=== PATIENT | male | born 1950 | race Caucasian/White ===

== ENCOUNTER 2019-12-28 19:42 | Observation (INO) | payer MEDICARE, OTHER ==
[2019-12-28 20:22] LABS: #Basophils 0.1 thou/uL (0.0-0.2); #Lymphocytes 1.5 thou/uL (1.20-3.40); #Monocytes 0.8 thou/uL (0.11-0.59); #Neutrophils 3.5 thou/uL (1.40-6.50); %Basophils 1.1 % (0.0-1.0); %Eosinophils 0.3 % (0.0-10.0); %Monocytes 12.8 % (0.0-10.0); %Neutrophils 59.7 % (42.0-75.0); Hemoglobin 12.3 g/dL (14.0-18.0); Mean Corpuscular HGB CONC 33.7 g/dL (32.0-36.0); Mean Corpuscular Hemoglobin 37.8 pg (27.0-31.0); Mean Platelet Volume 6.6 fL (7.4-10.4); Platelet Count 285 thou/uL (130-400); RBC Distribution Width 14.5 % (11.5-14.5); Red Blood Cell (RBC) Count 3.25 mill/uL (4.70-6.10); White Blood Cell (WBC) Count 5.9 thou/uL (4.8-10.8)
[2019-12-28 20:40] LABS: ALT (SGPT) 30 U/L (8-55); AST (SGOT) 56 U/L (5-34); Albumin 3.2 g/dL (3.4-4.8); Alkaline Phosphatase 172 U/L (40-110); Anion Gap 19 mmol/L (10-20); BUN (Urea Nitrogen) 7 mg/dL (8.4-25.7); Bilirubin, Total 0.3 mg/dL (0.2-1.2); Calc. Creatinine Clearance 0 mL/min (70-130); Calcium 8.1 mg/dL (7.8-10.44); Carbon Dioxide 19 mmol/L (23-31); Chloride 108 mmol/L (98-107); Estimated GFR-MDRD Greater than 90; Globulin 3.8 g/dL (2.4-3.5); Glucose 92 mg/dL (80-115); Potassium 4.6 mmol/L (3.5-5.1); Sodium 141 mmol/L (136-145)
--- NOTE | 2019-12-28 20:46 | RAD ---
CHEST ONE VIEW: 12/28/19 HISTORY: Shortness of breath. Heart size appears borderline considering portable technique. Pacemaker is present. Chronic appearing lung changes are seen. No definitive infiltrative process. Ground glass opacities would be difficult to exclude. There is no history given of infection. IMPRESSION: Chronic appearing lung change. POS: Alex
--- NOTE | 2019-12-28 22:01 | CT ---
CT HEAD WITHOUT CONTRAST: 12/28/19 INDICATIONS: Mental status change. No comparison. Mild cortical volume loss. Ventricles have normal size and position. No evidence of intracranial hemo rrhage or mass. No evidence of infarct. The paranasal sinuses appear clear. IMPRESSION: No acute process. POS: AGW
[2019-12-28] MEDS ORDERED: Morphine 2 MG/ML VIAL ONE (22:20)
[2019-12-28 22:50] LABS: Bilirubin Negative (Negative); Blood, Urine Negative (Negative); Clarity Clear (Clear); Glucose, Urine (Dipstick) Normal (Negative); Ketone, Urine Negative (Negative); Leukocyte Negative Leu/uL (Negative); Nitrite Negative (Negative); Protein, Urine (Dipstick) Negative (Neg-Trace); Specific Gravity, Urine 1.011 (1.002-1.036); Urobilinogen Normal mg/dL (Less than 2)
[2019-12-28] MEDS ORDERED: Aspirin 325 MG TAB ONE (23:14)
[2019-12-28] MEDS ORDERED: Nitroglycerin 2% Ointment 1 INCH/1 GM Packet ONE (23:14)
[2019-12-28 23:40] LABS: Lactic Acid 2.3 mmol/L (0.5-2.2)
[2019-12-29] MEDS ORDERED: Morphine 2 MG/ML VIAL ONE (00:42)
[2019-12-29] MEDS ORDERED: Nitroglycerin 0.4 MG TAB (25 Tab Bottle) SL PRN (01:18)
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
[2019-12-29 02:47] VITALS: BMI 23.6
[2019-12-29] MEDS: HYDROcodone/Acetaminophen 5/325 mg Tablet PO PRN ×2 (03:09→15:13)
[2019-12-29 05:53] LABS: Troponin I 0.015 ng/mL (< 0.028)
[2019-12-29] MEDS: Morphine 2 MG/ML VIAL SLOW IVP PRN ×4 (06:42→22:04)
--- NOTE | 2019-12-29 07:51 | PDOC.FMACP ---
Advance Care Planning - Problem (1) Chest pain Status: Acute Code(s): R07.9 - CHEST PAIN, UNSPECIFIED (2) Chronic pain syndrome Status: Acute Code(s): G89.4 - CHRONIC PAIN SYNDROME (3) Neuropathy Status: Acute Code(s): G62.9 - POLYNEUROPATHY, UNSPECIFIED (4) Hypothyroidism Status: Acute Code(s): E03.9 - HYPOTHYROIDISM, UNSPECIFIED (5) COPD (chronic obstructive pulmonary disease) Status: Acute - Note Summary: Advanced Care Planning was discussed. The diagnosis, prognosis and goals of care were discussed. Appropriate forms and documentation to accomplish the goals of care were discussed. All questions were answered. The Palliative Care Team will be engaged to assist with completion of any outstanding forms that are needed. Patient wishes to remain full code. Surrogate decision maker: Kelly Stephens. Time Spent (mins): 17
[2019-12-29] MEDS: Aspirin 81 mg Enteric Coated Tablet PO SCH (09:14)
[2019-12-29] MEDS: Gabapentin 300 MG CAP PO SCH ×3 (09:14→22:01)
[2019-12-29] MEDS: Enoxaparin Sodium 40 MG/0.4 ML SYRINGE SC SCH (09:14)
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
[2019-12-29] MEDS ORDERED: Regadenoson 0.4 MG/5 ML SYRINGE ONE (12:37)
[2019-12-29 13:26] LABS: SARS-CoV-2 MS2 Positive; SARS-CoV-2 N Gene Negative; SARS-CoV-2 S Gene Negative; SARS-CoV-2 by NAA Not Detected (NotDetected); SARS-CoV-2 orf1ab Negative
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
[2019-12-29] MEDS: Metoprolol Tartrate 25 MG TAB PO SCH ×2 (15:06→22:01)
--- NOTE | 2019-12-29 16:09 | NM ---
MYOCARDIAL PERFUSION SCAN WITH SPECT IMAGING: History: Chest pain. Technique: Examination was performed using 30.5 mCi 99M Technetium Sestamibi on the stress and 10.5 m Ci on the resting images. FINDINGS: This shows a small fixed defect in the inferior wall near the apex. No ischemic change. Wall motion: There is symmetric contractility to the ventricle. Left ventricular ejection fraction: Calculated left ventricular ejection fraction is 58%. IMPRESSION: No evidence for ischemia. Left ventricular ejection fraction calculated at 58%. POS: OFF
[2019-12-29] MEDS ORDERED: Calcium Carbonate 500 MG ChewTAB PO PRN (20:04)
[2019-12-29] MEDS: FLU VACC QS2020-21(65YR UP)/PF 240 MCG/0.7 ML SYRINGE IM ONE ×2 (22:05→22:42)
--- NOTE | 2019-12-29 22:27 | PDOC.EVN ---
Event Note - Event Note Event Note: Nursing went into room and patient was diaphoretic and complaining of chest pain. Stat EKG ordered along with troponin. Nitro administered which provided some relief and then morphine helped with the rest of the chest pain and the leg pain he was experiencing. Nursing to obtain accuchek also at this time.
[2019-12-29 23:35] LABS: Troponin I 0.028 ng/mL (< 0.028)
[2019-12-30 02:00] LABS: Troponin I 0.018 ng/mL (< 0.028)
[2019-12-30] MEDS: HYDROcodone/Acetaminophen 5/325 mg Tablet PO PRN ×2 (03:00→08:53)
[2019-12-30] MEDS: Morphine 2 MG/ML VIAL SLOW IVP PRN ×2 (06:12→10:37)
[2019-12-30] MEDS: Gabapentin 300 MG CAP PO SCH (08:46)
[2019-12-30] MEDS: Metoprolol Tartrate 25 MG TAB PO SCH (08:46)
[2019-12-30] MEDS ORDERED: Timolol 0.5% Ophth Soln 5 ml Bottle EA EYE SCH (09:00)
[2019-12-30] MEDS ORDERED: Carbidopa/Levodopa 10-100 mg Tablet PO SCH (09:00)
[2019-12-30] MEDS ORDERED: carBAMazepine 200 MG TAB PO SCH (09:00)
[2019-12-30 11:12] VITALS: BP 151/103; TEMP 97.9
[2019-12-30] MEDS: Aspirin 81 mg Enteric Coated Tablet PO SCH (12:11)
[2019-12-30] MEDS: Enoxaparin Sodium 40 MG/0.4 ML SYRINGE SC SCH (12:11)
--- NOTE | 2019-12-30 12:19 | PRG ---
DATE OF SERVICE: 12/30/2019 SUBJECTIVE: Mr. Delcid is doing well. No current complaints. He appeared to have chest pain overnight, although during my visit, he states it was more consistent with leg pain and buttock pain from his decubitus ulcer. No chest pain or pressure noted per his account. He recently underwent noninvasive stress test that was negative for ischemia. OBJECTIVE: VITAL SIGNS: Blood pressure 146/98, pulse 108, respirations 20. LUNGS: Clear to auscultation. HEART: Regular rate and rhythm. ABDOMEN: Soft, nontender, nondistended. EXTREMITIES: No edema. IMPRESSION: Atypical chest pain. RECOMMENDATIONS: Mr. Delcid is doing well. No current complaints. His stress study was negative for ischemia. From my standpoint, it will be okay for discharge. His symptoms were more consistent with musculoskeletal versus pleuritic pain. I did recommend he follow up with Dr. Kyle Knapp, his primary area forester within a week. Job ID: [id number]
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
--- NOTE | 2019-12-30 18:01 | EKG ---
Test Reason : Blood Pressure : / mmHG Vent. Rate : 093 BPM Atrial Rate : 093 BPM P-R Int : 160 ms QRS Dur : 126 ms QT Int : 440 ms P-R-T Axes : 112 088 069 degrees QTc Int : 547 ms Normal sinus rhythm very poor quality EKG Right bundle branch block Abnormal ECG When compared with ECG of 29-DEC-2019 00:37, (Unconfirmed) Right bundle branch block is now Present Confirmed by DR. Geoff RYAN ([id number]) on 12/30/2019 6:00:58 PM Referred By: CB Confirmed By:DR. Geoff RYAN
--- NOTE | 2019-12-31 14:26 | EKG ---
Test Reason : Blood Pressure : / mmHG Vent. Rate : 098 BPM Atrial Rate : 098 BPM P-R Int : 170 ms QRS Dur : 120 ms QT Int : 402 ms P-R-T Axes : 054 088 080 degrees QTc Int : 513 ms Normal sinus rhythm Right bundle branch block Septal infarct , age undetermined Abnormal ECG Confirmed by TARA PRAKASH ([id number]) on 12/31/2019 2:26:02 PM Referred By: CB Confirmed By:TARA PRAKASH
== END 2019-12-30 12:47 | disposition home health service (06) ==
LOC: ERS 19:42 → 2SE 12-29 01:15
PROVIDERS: ADMIT Internal Medicine; ATTEND Internal Medicine
DX: R07.89 Other chest pain (principal); J44.9 Chronic obstructive pulmonary disease, unspecified; G89.4 Chronic pain syndrome; L89.303 Pressure ulcer of unspecified buttock, stage 3; E03.9 Hypothyroidism, unspecified; G62.9 Polyneuropathy, unspecified; I45.10 Unspecified right bundle-branch block; F32.9 Major depressive disorder, single episode, unspecified; G20 Parkinson's disease; I49.5 Sick sinus syndrome; G82.20 Paraplegia, unspecified; Z79.899 Other long term (current) drug therapy; Z95.0 Presence of cardiac pacemaker
CPT/HCPCS: 70450; 71045; 78452; 80053; 81003; 82550; 82962; 83605; 84484 ×4; 85025; 87040; 90662; 93005 ×2; 93017; 93306; 94760; 96361; 96372; 96374; 96376 ×3; 97139 ×2; 99285; A9500; G0008; G0378 ×3; J2270 ×3; U0003; 36415; 36416; 87635; 90471; 93010; J1650; J2785

== ENCOUNTER 2020-03-09 16:55 | Inpatient (IN) | payer MEDICARE, MEDICAID ==
[2020-03-09 17:42] LABS: Hemoglobin 11.9 g/dL (14.0-18.0); Mean Corpuscular HGB CONC 33.1 g/dL (32.0-36.0); Mean Corpuscular Hemoglobin 35.6 pg (27.0-31.0); Mean Platelet Volume 8.6 fL (7.4-10.4); Platelet Count 89 thou/uL (130-400); RBC Distribution Width 13.4 % (11.5-14.5); Red Blood Cell (RBC) Count 3.35 mill/uL (4.70-6.10)
--- NOTE | 2020-03-09 17:46 | CT ---
CT Brain WO Con: 03/09/2020 5:37 PM CLINICAL HISTORY: History of fall with head injury. IMAGING TECHNIQUE: Multiple CT images were obtained of the brain without IV contrast. COMPARISON: December 28, 2019 CT the brain FINDINGS: BRAIN: Evidence of acute infarct: None. Evidence of chronic ischemic change:Stable mild chronic small vessel white matter ischemic change Evidence of intracranial hemorrhage: None. Evidence of brain volume loss:Stable generalized cerebral and cerebellar atrophy Evidence of midline shift: Third ventricle and septum pellucidum are midline. Ventricles: Normal. No hydrocephalus. SKULL: Intact. VISUALIZED PARANASAL SINUSES: There is mild mucosal thickening of the ethmoid air cells which are st able. MASTOID AIR CELLS: Clear. EXTRACRANIAL SOFT TISSUES: Normal. IMPRESSION: No acute intracranial abnormality.
--- NOTE | 2020-03-09 17:47 | CT ---
CT Cervical Spine WO Con Indication: Fall with neck pain COMPARISON: None. FINDINGS: Spinal alignment: No acute malalignment. Craniocervical junction: Within normal limits. Fracture: None. Vertebral body heights: Maintained. Prevertebral soft tissues:Normal appearing. Cervical spine degenerative change: There is [id number] multilevel cervical spondylosis Lung apices: Clear. IMPRESSION: No acute osseous abnormality. [id number] multilevel cervical spondylosis.
[2020-03-09 17:59] LABS: Band 5 % (5-11); Lymphocytes 8 % (21-51); MDiff Complete? YES; Macrocytosis SLIGHT = 6-15 cells (100X) (0-5/hpf); Monocytes 9 % (0-10); Neutrophil 77 % (42-75); Platelet Morphology Comment Appears Decreased; Reactive Lymphocytes 1 % (0-10)
--- NOTE | 2020-03-09 18:06 | RAD ---
Exam: Chest one view HISTORY:Fall. Left rib pain. Comparison: 12/28/2019 FINDINGS: Cardiac silhouette:Normal cardiac silhouette. Stable dual lead left-sided transvenous pacemaker Aorta: Unremarkable Pulmonary vessels: Normal Costophrenic angles: Clear LUNGS: Chronic lung parenchymal changes. No masses or consolidation. Pneumothorax: None Osseous abnormalities: Diffuse bone demineralization. Multiple old left rib fractures. Acute left rib fracture is not appreciated. IMPRESSION: No acute cardiopulmonary process.
[2020-03-09] MEDS ORDERED: Ketorolac Tromethamine 30 MG/ML VIAL ONE (19:12)
[2020-03-09 19:48] LABS: Bilirubin Negative (Negative); Blood, Urine Negative (Negative); Clarity Clear (Clear); Glucose, Urine (Dipstick) Normal (Negative); Ketone, Urine Negative (Negative); Leukocyte Negative Leu/uL (Negative); Nitrite Negative (Negative); Protein, Urine (Dipstick) Negative (Neg-Trace); Specific Gravity, Urine 1.013 (1.002-1.036); Urobilinogen Normal mg/dL (Less than 2)
[2020-03-09] MEDS ORDERED: Cefepime 2 GM VIAL ONE (19:52)
[2020-03-09 20:19] LABS: Albumin 1.9 g/dL (3.4-4.8)
[2020-03-09 20:20] LABS: Calcium 7.3 mg/dL (7.8-10.44); Chloride 96 mmol/L (98-107); Sodium 134 mmol/L (136-145)
[2020-03-09 20:21] LABS: Glucose 131 mg/dL (80-115)
[2020-03-09 20:22] LABS: Globulin 3.7 g/dL (2.4-3.5); Protein, Total 5.6 g/dL (5.8-8.1)
[2020-03-09 20:23] LABS: Anion Gap 16 mmol/L (10-20); Bilirubin, Total 0.7 mg/dL (0.2-1.2); Carbon Dioxide 25 mmol/L (23-31)
[2020-03-09 20:24] LABS: Alkaline Phosphatase 435 U/L (40-110)
[2020-03-09 20:25] LABS: BUN (Urea Nitrogen) 9 mg/dL (8.4-25.7); Calc. Creatinine Clearance 0 mL/min (70-130)
[2020-03-09 20:26] LABS: AST (SGOT) 50 U/L (5-34)
[2020-03-09 20:27] LABS: ALT (SGPT) 64 U/L (8-55); CK (CPK) 43 U/L (30-200)
[2020-03-09 20:30] LABS: Potassium 2.9 mmol/L (3.5-5.1)
[2020-03-09] MEDS ORDERED: Potassium Chloride 20 MEQ TAB ONE (20:41)
[2020-03-09] MEDS ORDERED: Potassium Chloride 40 MEQ in Sodium Chloride 0.9% 250 ML 250 ML IVPB SCH (21:00)
[2020-03-09] MEDS ORDERED: hydrALAZINE 20 MG/ML VIAL SLOW IVP PRN (22:05)
[2020-03-09] MEDS ORDERED: Labetalol HCl 100 MG/20 ML VIAL SLOW IVP PRN (22:05)
[2020-03-09] MEDS ORDERED: cloNIDine 0.1 MG TAB PO PRN (22:05)
[2020-03-09] MEDS ORDERED: Guaifenesin DM 100-10/5 ML UDCUP PO PRN (22:05)
[2020-03-09] MEDS ORDERED: Promethazine HCl 12.5 MG in Sodium Chloride 0.9% 50 ML IVPB PRN (22:05)
[2020-03-09] MEDS ORDERED: Ondansetron PF 4 MG/2 ML Vial IVP PRN (22:05)
[2020-03-09] MEDS ORDERED: Vancomycin 1 GM in Premix Bag 1 BAG IVPB SCH (22:05)
[2020-03-09] MEDS ORDERED: Vancomycin 1 GM/200 ML BAG ONE (22:14)
[2020-03-09] MEDS ORDERED: Electrolyte Replacement Protocol 1 EACH FS PRN (22:15)
[2020-03-09] MEDS ORDERED: Potassium Chloride 40 MEQ in Premix Bag 1 BAG IVPB SCH (22:15)
[2020-03-09] MEDS ORDERED: Methocarbamol 500 MG TAB PO SCH (23:00)
[2020-03-09] MEDS ORDERED: Gabapentin 300 MG CAP PO SCH (23:00)
[2020-03-09] MEDS ORDERED: Piperacillin/Tazobactam 3.375 GM in Sodium Chloride 0.9% 100 ML IVPB SCH (23:59)
[2020-03-10] MEDS ORDERED: Ipratropium Oral Inhaler INH PRN (00:07)
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
[2020-03-10] MEDS: Sodium Chloride 0.9% 1,000 ML IV SCH ×3 (00:36→15:23)
[2020-03-10] MEDS: Morphine 2 MG/ML VIAL SLOW IVP PRN ×2 (00:49→21:58)
[2020-03-10] MEDS ORDERED: Morphine 4 MG/ML VIAL ONE (00:51)
[2020-03-10] MEDS ORDERED: Piperacillin/Tazobactam 3.375 GM VIAL ONE ×2 (02:35→09:23)
[2020-03-10] MEDS: Piperacillin/Tazobactam 3.375 GM in Sodium Chloride 0.9% 100 ML IVPB SCH ×4 (02:45→20:19)
[2020-03-10] MEDS: Levothyroxine Sodium 100 MCG TAB PO SCH (06:09)
[2020-03-10 06:55] LABS: #Lymphocytes 0.7 thou/uL (1.20-3.40); #Neutrophils 9.1 thou/uL (1.40-6.50); %Basophils 0.1 % (0.0-1.0); %Eosinophils 0.3 % (0.0-10.0); %Lymphocytes 6.5 % (21.0-51.0); %Neutrophils 84.2 % (42.0-75.0); Hemoglobin 11.3 g/dL (14.0-18.0); Mean Corpuscular HGB CONC 32.2 g/dL (32.0-36.0); Mean Corpuscular Hemoglobin 35.4 pg (27.0-31.0); Mean Platelet Volume 8.6 fL (7.4-10.4); Platelet Count 75 thou/uL (130-400); RBC Distribution Width 13.4 % (11.5-14.5); Red Blood Cell (RBC) Count 3.18 mill/uL (4.70-6.10); White Blood Cell (WBC) Count 10.9 thou/uL (4.8-10.8)
[2020-03-10 07:17] LABS: Macrocytosis SLIGHT = 6-15 cells (100X) (0-5/hpf); Platelet Morphology Comment Appears Decreased; Polychromasia SLIGHT = 2-3 cells (100X) (0-2/hpf)
[2020-03-10 07:20] LABS: Anion Gap 13 mmol/L (10-20); BUN (Urea Nitrogen) 6 mg/dL (8.4-25.7); Calc. Creatinine Clearance 0 mL/min (70-130); Calcium 6.9 mg/dL (7.8-10.44); Carbon Dioxide 21 mmol/L (23-31); Chloride 106 mmol/L (98-107); Glucose 90 mg/dL (80-115); Magnesium 1.4 mg/dL (1.6-2.6); Potassium 4.4 mmol/L (3.5-5.1); Sodium 136 mmol/L (136-145)
[2020-03-10] MEDS ORDERED: Magnesium Sulfate 4 GM in Sodium Chloride 0.9% 250 ML 250 ML IVPB SCH (07:30)
[2020-03-10] MEDS ORDERED: Potassium Chloride 20 MEQ TAB ONE ×2 (07:38→11:29)
[2020-03-10] MEDS: Potassium Chloride 20 MEQ TAB PO SCH ×2 (07:40→11:28)
[2020-03-10] MEDS: Mometasone 200 MCG/Formoterol 5 MCG 120 PUFF INHALER INH SCH ×2 (08:20→18:38)
[2020-03-10] MEDS: carBAMazepine 200 MG TAB PO SCH ×2 (09:08→20:23)
[2020-03-10] MEDS: DULoxetine 60 MG CAP PO SCH ×2 (09:09→20:20)
[2020-03-10] MEDS: Docusate 100 MG CAP PO SCH ×2 (09:09→20:24)
[2020-03-10] MEDS ORDERED: Rocuronium Bromide 10 MG/ML (10ML VIAL) ONE (09:13)
[2020-03-10] MEDS ORDERED: PROPOFOL 200 MG/20 ML VIAL ONE (09:13)
[2020-03-10] MEDS: Ferrous Sulfate 325 MG TAB PO SCH (09:14)
[2020-03-10] MEDS: Famotidine 20 MG TAB PO SCH ×2 (09:15→20:22)
[2020-03-10] MEDS: Hydroxychloroquine Sulfate 200 MG TAB PO SCH ×2 (09:17→21:53)
[2020-03-10] MEDS ORDERED: Famotidine 20 MG TAB ONE (09:23)
[2020-03-10] MEDS: Carbidopa/Levodopa 10-100 mg Tablet PO SCH ×3 (10:25→20:20)
[2020-03-10] MEDS: Heparin 5,000 UNITS/ML VIAL SC SCH ×2 (10:26→20:29)
[2020-03-10] MEDS: Polyethylene Glycol 3350 17 GM Packet PO SCH (10:26)
[2020-03-10] MEDS ORDERED: Vancomycin 1 GM/200 ML BAG ONE (10:51)
[2020-03-10] MEDS: Vancomycin 1 GM in Premix Bag 1 BAG IVPB SCH ×2 (11:03→21:53)
[2020-03-10 12:29] LABS: SARS-CoV-2 MS2 Positive; SARS-CoV-2 N Gene Negative; SARS-CoV-2 S Gene Negative; SARS-CoV-2 by NAA Not Detected (NotDetected); SARS-CoV-2 orf1ab Negative
[2020-03-10] MEDS ORDERED: HYDROcodone/Acetaminophen 5/325 mg Tablet ONE (12:32)
[2020-03-10] MEDS: HYDROcodone/Acetaminophen 5/325 mg Tablet PO PRN ×2 (12:32→20:26)
[2020-03-10] MEDS ORDERED: Gabapentin 300 MG CAP PO SCH (21:00)
[2020-03-10] MEDS: Methocarbamol 500 MG TAB PO SCH (21:48)
[2020-03-11] MEDS: Piperacillin/Tazobactam 3.375 GM in Sodium Chloride 0.9% 100 ML IVPB SCH ×4 (03:16→20:20)
[2020-03-11] MEDS: Sodium Chloride 0.9% 1,000 ML IV SCH ×3 (03:16→21:13)
[2020-03-11] MEDS: HYDROcodone/Acetaminophen 5/325 mg Tablet PO PRN ×2 (03:22→08:59)
[2020-03-11 04:51] LABS: #Lymphocytes 0.7 thou/uL (1.20-3.40); #Monocytes 1.1 thou/uL (0.11-0.59); #Neutrophils 8.3 thou/uL (1.40-6.50); %Basophils 0.5 % (0.0-1.0); %Eosinophils 0.3 % (0.0-10.0); %Lymphocytes 6.7 % (21.0-51.0); %Monocytes 10.4 % (0.0-10.0); %Neutrophils 82.2 % (42.0-75.0); Hemoglobin 11.2 g/dL (14.0-18.0); Mean Corpuscular HGB CONC 32.1 g/dL (32.0-36.0); Mean Corpuscular Hemoglobin 35.5 pg (27.0-31.0); Mean Platelet Volume 9.8 fL (7.4-10.4); Platelet Count 65 thou/uL (130-400); RBC Distribution Width 13.3 % (11.5-14.5); Red Blood Cell (RBC) Count 3.16 mill/uL (4.70-6.10); White Blood Cell (WBC) Count 10.1 thou/uL (4.8-10.8)
[2020-03-11 05:07] LABS: Anion Gap 11 mmol/L (10-20); BUN (Urea Nitrogen) Less than 4 mg/dL (8.4-25.7); Calc. Creatinine Clearance 163 mL/min (70-130); Calcium 6.9 mg/dL (7.8-10.44); Carbon Dioxide 24 mmol/L (23-31); Chloride 100 mmol/L (98-107); Glucose 108 mg/dL (80-115); Magnesium 1.7 mg/dL (1.6-2.6); Potassium 3.9 mmol/L (3.5-5.1); Sodium 131 mmol/L (136-145)
[2020-03-11] MEDS: Levothyroxine Sodium 100 MCG TAB PO SCH (05:24)
[2020-03-11] MEDS ORDERED: Magnesium 2 GM/50 ML 2 GM in Premix Bag 1 BAG IVPB SCH (06:30)
[2020-03-11] MEDS: Mometasone 200 MCG/Formoterol 5 MCG 120 PUFF INHALER INH SCH ×2 (07:07→18:50)
[2020-03-11] MEDS: Carbidopa/Levodopa 10-100 mg Tablet PO SCH ×3 (08:50→20:15)
[2020-03-11] MEDS: DULoxetine 60 MG CAP PO SCH ×2 (08:51→20:16)
[2020-03-11] MEDS: Docusate 100 MG CAP PO SCH ×2 (08:51→20:16)
[2020-03-11] MEDS: Famotidine 20 MG TAB PO SCH (08:51)
[2020-03-11] MEDS: Ferrous Sulfate 325 MG TAB PO SCH (08:51)
[2020-03-11] MEDS: carBAMazepine 200 MG TAB PO SCH ×2 (08:51→20:16)
[2020-03-11] MEDS: Polyethylene Glycol 3350 17 GM Packet PO SCH (08:52)
[2020-03-11] MEDS: Heparin 5,000 UNITS/ML VIAL SC SCH ×2 (09:21→21:13)
[2020-03-11] MEDS ORDERED: EPINEPHrine 1 MG/10 ML Abboject SYRINGE ONE (09:21)
--- NOTE | 2020-03-11 09:35 | PDOC.HOSPP ---
- Subjective Encounter Date: 03/10/20 Encounter Time: 11:50 Subjective: PT SEEN IN ER holding area. looks comfortable, wants something to eat and drink. - Objective Vital Signs & Weight: Vital Signs (12 hours) Temp Pulse Resp BP Pulse Ox 03/11/20 08:37 97.6 F 105 H 21 H 133/78 94 L 03/11/20 03:23 97.5 F L 108 H 18 148/84 H 92 L Weight Weight 148 lb I&O: 03/10/20 03/11/20 03/12/20 06:59 06:59 06:59 Intake Total 2760 Output Total 525 Balance 2235 Result Diagrams: 03/11/20 04:20 03/11/20 04:20 Hospitalist ROS - Medication Medications: Active Medications Generic Name Dose Route Start Last Admin Trade Name Freq PRN Reason Stop Dose Admin Hydrocodone Bitart/Acetaminophen 1 tab 03/09/20 22:05 03/11/20 08:59 Hydrocodone/Acetaminophen 5/325 Mg Tablet PO 1 tab Q4H PRN Administration Moderate Pain (4-6) Carbamazepine 200 mg 03/10/20 09:00 03/11/20 08:51 Carbamazepine 200 Mg Tab PO 200 mg BID NICKOLAS Administration Carbidopa/Levodopa 1 tab 03/10/20 09:00 03/11/20 08:50 Carbidopa/Levodopa 10-100 Mg Tablet PO 1 tab TID NICKOLAS Administration Docusate Sodium 100 mg 03/10/20 09:00 03/11/20 08:51 Docusate 100 Mg Cap PO Not Given BID NICKOLAS Duloxetine HCl 60 mg 03/10/20 09:00 03/11/20 08:51 Duloxetine 60 Mg Cap PO 60 mg BID NICKOLAS Administration Famotidine 20 mg 03/10/20 09:00 03/11/20 08:51 Famotidine 20 Mg Tab PO 20 mg BID NICKOLAS Administration Ferrous Sulfate 325 mg 03/10/20 09:00 03/11/20 08:51 Ferrous Sulfate 325 Mg Tab PO 325 mg DAILY NICKOLAS Administration Gabapentin 900 mg 03/10/20 21:00 03/10/20 20:22 Gabapentin 300 Mg Cap PO 900 mg HS NICKOLAS Administration Heparin Sodium (Porcine) 5,000 units 03/10/20 09:00 03/11/20 09:21 Heparin 5,000 Units/Ml Vial SC Not Given BID NICKOLAS Hydroxychloroquine Sulfate 200 mg 03/10/20 09:00 03/10/20 21:53 Hydroxychloroquine Sulfate 200 Mg Tab PO 200 mg BID NICKOLAS Administration Sodium Chloride 1,000 mls @ 100 mls/hr 03/09/20 22:15 03/11/20 03:16 Normal Saline 0.9% IV 1,000 mls .Q10H NICKOLAS Administration Piperacillin Sod/Tazobactam 100 mls @ 200 mls/hr 03/10/20 03:00 03/11/20 08:53 Sod 3.375 gm/ Sodium Chloride IVPB 100 mls 0300,0900,1500,2100 NICKOLAS Administration Vancomycin HCl 1 gm/ Device 200 mls @ 200 mls/hr 03/10/20 10:00 03/10/20 21:53 IVPB 03/17/20 10:01 200 mls 1000,2200 NICKOLAS Administration Magnesium Sulfate 2 gm/ Device 50 mls @ 50 mls/hr 03/11/20 06:30 03/11/20 06:30 IVPB 03/11/20 10:00 50 mls NOW NICKOLAS Administration Levothyroxine Sodium 100 mcg 03/10/20 06:00 03/11/20 05:24 Levothyroxine Sodium 100 Mcg Tab PO 100 mcg 0600 NICKOLAS Administration Methocarbamol 750 mg 03/10/20 21:00 03/10/20 21:48 Methocarbamol 500 Mg Tab PO 750 mg HS NICKOLAS Administration Mometasone Furoate/Formoterol Fumar 2 puff 03/10/20 06:30 03/11/20 07:07 Mometasone 200 Mcg/Formoterol 5 Mcg 120 Puff Inhaler INH 2 puff BID-RT NICKOLAS Administration Morphine Sulfate 2 mg 03/09/20 22:05 03/10/20 21:58 Morphine 2 Mg/Ml Vial SLOW IVP 2 mg Q4H PRN Administration severe pain 4-10 Pantoprazole Sodium 40 mg 03/10/20 09:00 03/11/20 08:51 Pantoprazole 40 Mg Tab PO 40 mg DAILY NICKOLAS Administration Polyethylene Glycol 17 gm 03/10/20 09:00 03/11/20 08:52 Polyethylene Glycol 3350 17 Gm Packet PO Not Given DAILY NICKOLAS - Exam General Appearance: NAD, awake alert, ill appearing Eye: PERRL ENT: normocephalic atraumatic Neck: supple Heart: RRR, normal peripheral pulses Respiratory: CTAB, normal chest expansion Gastrointestinal: soft, normal bowel sounds Neurological: no focal deficits Musculoskeletal: generalized weakness Psychiatric: A&O x 3 Hosp A/P - Plan 83 year old male with PMH doyle over 70% of body with resulting muscle weakness, COPD, fibromyalgia, parkinsons, seizure disorder, vitamin b deficiency, hypothyroidismwho presents to ED after fall at home. # fall at home and no LOC # purulent cellulitis secondary to infected sacral wound # sepsis secondary to skin/soft tissue infection - UA benign; CXR clear, CT spine w/ multilevel cervical spondylosis, CT head with on acute IC abnormalities. - empiric vancomycin/zosyn, IVF, montior culture results - wound care nursing consults # hypokalemia - replaced. Pt/OT CAse mgmt pt lives alone, may need to go to SNF Full code pl note this note missed yesterday.
[2020-03-11 10:39] LABS: Vancomycin, Trough 7.7 ug/mL
[2020-03-11] MEDS: Vancomycin 1 GM in Premix Bag 1 BAG IVPB SCH (11:51)
[2020-03-11] MEDS: Hydroxychloroquine Sulfate 200 MG TAB PO SCH ×2 (12:31→20:17)
[2020-03-11] MEDS: NS 0.9% w/ 20 MEQ KCL 1,000 ML/1,000 ML BAG IV SCH (12:32)
[2020-03-11] MEDS: Vancomycin 1.5 GRAM/300 ML BAG 1.5 GM in Premix Bag 1 BAG IVPB SCH (12:33)
[2020-03-11] MEDS ORDERED: diphenhydrAMINE 50 MG CAP PO PRN (15:40)
[2020-03-11] MEDS ORDERED: Clotrimazole 1 % Cream 30 GM TUBE TOP PRN (15:40)
[2020-03-11] MEDS ORDERED: Simethicone Chewable 80 MG TAB PO PRN (15:40)
[2020-03-11] MEDS ORDERED: Loratadine 10 MG TAB PO PRN (15:40)
--- NOTE | 2020-03-11 15:44 | PDOC.HOSPP ---
- Subjective Encounter Date: 03/11/20 Encounter Time: 15:30 Subjective: Patient sitting in the chair bed. He has a significant wound at the back but is still able to sit but he appears quite uncomfortable as well. He is asking for gabapentin in the night which he used to take at home. Home medication started. I reviewed the wound care pictures as well. It appears he has skin abrasions and stage I/II pressure ulcers sacral area - Objective Vital Signs & Weight: Vital Signs (12 hours) Temp Pulse Resp BP BP Pulse Ox 03/11/20 12:27 97.5 F L 100 24 H 167/91 H 94 L 03/11/20 08:37 97.6 F 105 H 21 H 133/78 94 L Weight Admit Weight 146 lb 14.4 oz Weight 148 lb I&O: 03/10/20 03/11/20 03/12/20 06:59 06:59 06:59 Intake Total 2760 Output Total 525 Balance 2235 Result Diagrams: 03/11/20 04:20 03/11/20 04:20 Hospitalist ROS - Medication Medications: Active Medications Generic Name Dose Route Start Last Admin Trade Name Freq PRN Reason Stop Dose Admin Hydrocodone Bitart/Acetaminophen 1 tab 03/09/20 22:05 03/11/20 08:59 Hydrocodone/Acetaminophen 5/325 Mg Tablet PO 1 tab Q4H PRN Administration Moderate Pain (4-6) Carbamazepine 200 mg 03/10/20 09:00 03/11/20 08:51 Carbamazepine 200 Mg Tab PO 200 mg BID NICKOLAS Administration Carbidopa/Levodopa 1 tab 03/10/20 09:00 03/11/20 08:50 Carbidopa/Levodopa 10-100 Mg Tablet PO 1 tab TID NICKOLAS Administration Docusate Sodium 100 mg 03/10/20 09:00 03/11/20 08:51 Docusate 100 Mg Cap PO Not Given BID NICKOLAS Duloxetine HCl 60 mg 03/10/20 09:00 03/11/20 08:51 Duloxetine 60 Mg Cap PO 60 mg BID NICKOLAS Administration Ferrous Sulfate 325 mg 03/10/20 09:00 03/11/20 08:51 Ferrous Sulfate 325 Mg Tab PO 325 mg DAILY NICKOLAS Administration Heparin Sodium (Porcine) 5,000 units 03/10/20 09:00 03/11/20 09:21 Heparin 5,000 Units/Ml Vial SC Not Given BID NICKOLAS Hydroxychloroquine Sulfate 200 mg 03/10/20 09:00 03/11/20 12:31 Hydroxychloroquine Sulfate 200 Mg Tab PO 200 mg BID NICKOLAS Administration Piperacillin Sod/Tazobactam 100 mls @ 200 mls/hr 03/10/20 03:00 03/11/20 08:53 Sod 3.375 gm/ Sodium Chloride IVPB 100 mls 0300,0900,1500,2100 NICKOLAS Administration Potassium Chloride/Sodium Chloride 1,000 ml in 1,000 mls @ 50 mls/hr 03/11/20 10:45 03/11/20 12:32 Ns 0.9% W/ 20 Meq Kcl IV 03/13/20 02:44 1,000 mls .Q20H NICKOLAS Administration Sodium Chloride 1,000 mls @ 100 mls/hr 03/11/20 10:45 03/11/20 15:26 Normal Saline 0.9% IV Not Given .Q10H NICKOLAS Vancomycin HCl 1.5 gm/ Device 300 mls @ 200 mls/hr 03/11/20 11:00 03/11/20 12:33 IVPB 03/17/20 14:00 300 mls 1100,2300 NICKOLAS Administration Levothyroxine Sodium 100 mcg 03/10/20 06:00 03/11/20 05:24 Levothyroxine Sodium 100 Mcg Tab PO 100 mcg 0600 NICKOLAS Administration Methocarbamol 750 mg 03/10/20 21:00 03/10/20 21:48 Methocarbamol 500 Mg Tab PO 750 mg HS NICKOLAS Administration Mometasone Furoate/Formoterol Fumar 2 puff 03/10/20 06:30 03/11/20 07:07 Mometasone 200 Mcg/Formoterol 5 Mcg 120 Puff Inhaler INH 2 puff BID-RT NICKOLAS Administration Morphine Sulfate 2 mg 03/09/20 22:05 03/10/20 21:58 Morphine 2 Mg/Ml Vial SLOW IVP 2 mg Q4H PRN Administration severe pain 4-10 Pantoprazole Sodium 40 mg 03/10/20 09:00 03/11/20 08:51 Pantoprazole 40 Mg Tab PO 40 mg DAILY NICKOLAS Administration Polyethylene Glycol 17 gm 03/10/20 09:00 03/11/20 08:52 Polyethylene Glycol 3350 17 Gm Packet PO Not Given DAILY NICKOLAS - Exam General Appearance: awake alert, ill appearing Eye: PERRL ENT: normocephalic atraumatic Neck: supple Heart: RRR Respiratory: CTAB, normal chest expansion Gastrointestinal: soft, normal bowel sounds Skin - other findings: Stage I/II pressure ulcers - sacral area-REVEWED PICTURE S FROM WOUND CARE Neurological: cranial nerve grossly intact, no focal deficits Psychiatric: normal affect, normal behavior, A&O x 3 Hosp A/P - Plan 83 year old male with PMH doyle over 70% of body with resulting muscle weakness, COPD, fibromyalgia, parkinsons, seizure disorder, vitamin b deficiency, hypothyroidismwho presents to ED after fall at home. # fall at home and no LOC # purulent cellulitis secondary to infected sacral wound # sepsis secondary to skin/soft tissue infection - UA benign; CXR clear, CT spine w/ multilevel cervical spondylosis, CT head with on acute IC abnormalities. - empiric vancomycin/zosyn, IVF, montior culture results - wound care nursing consults # hypokalemia - replaced. Pt/OT CAse mgmt pt lives alone, may need to go to SNF Full code pl note this note missed yesterday. He is little anxious to get home. He states that he has a provider as well as nursing comes 3 times a week to his home. If wound care ulcer can be addressed at home then will discharge him tomorrow.
[2020-03-11] MEDS ORDERED: Cyanocobalamin 1000 MCG/ML VIAL IM SCH (15:45)
[2020-03-11] MEDS: Gabapentin 300 MG CAP PO SCH ×2 (16:00→20:20)
[2020-03-11] MEDS: Morphine 2 MG/ML VIAL SLOW IVP PRN (16:01)
[2020-03-11] MEDS ORDERED: Triamcinolone 0.1% Cream 15 GM TUBE TOP PRN (17:46)
[2020-03-11] MEDS ORDERED: Sodium Chloride 0.65% Nasal 44 ML BOT EA NARE PRN (17:48)
[2020-03-11] MEDS ORDERED: Albuterol Sulfate 2.5 mg/0.5 ml Neb NEB PRN (17:53)
[2020-03-11] MEDS: Latanoprost 0.005% Ophth Soln 2.5 ml Bottle EA EYE SCH (20:12)
[2020-03-11] MEDS: Timolol 0.5% Ophth Soln 5 ml Bottle EA EYE SCH (20:15)
[2020-03-11] MEDS: Gabapentin 400 MG CAP PO SCH (20:15)
[2020-03-11] MEDS: Terazosin HCl 5 MG CAP PO SCH (20:17)
[2020-03-11] MEDS: Metoprolol Tartrate 25 MG TAB PO SCH (20:17)
[2020-03-11] MEDS: Methocarbamol 500 MG TAB PO SCH (20:18)
--- NOTE | 2020-03-11 22:41 | PDOC.EVN ---
Event Note - Event Note Event Note: code blue was announced, patient was found unconscious slumped atthe edge of the bed,then when he was repositioned he was noted not breathing. CPR was started, and initially had PEA,then we he had a pulse,he was intubated by the ER physician and he is in the process of being transferred to ICU. I will order stat labs and CXR. I called the hospital superintendent andinformed him about the patient.
[2020-03-11 23:23] LABS: Actual Bicarbonate (HCO3a) 24.5 mEq/L (22-28); Base Excess (BEa) -0.8 mEq/L (-2.0 to +3.0); CO2 Tension 42.7 mmHg (35.0-45.0); Calcium, Ionized (arterial) 1.07 mmol/L (1.12-1.30); Carboxyhemoglobin (COHb) 1.5 gm% (0.0-3.0); Hemoglobin (Hb) 11.2 g/dL (14.0-18.0); O2 Tension (PaO2), arterial 143.5 mmHg (> 80.0); pH, Arterial 7.38 (7.35-7.45)
[2020-03-11 23:24] LABS: ALV-art Gradient 516.125 mmHg (0-20); Puncture Site LBA
--- NOTE | 2020-03-11 23:27 | RAD ---
Portable frontal chest radiograph: 03/11/2020 COMPARISON: 03/09/2019 HISTORY: Evaluate chest following intubation FINDINGS: There is a new endotracheal tube and nasogastric tube in proper position. There is extensiv e new interstitial opacity in the perihilar regions and both upper lobes with superimposed diffuse bilateral upper lobe and perihilar groundglass opacity. IMPRESSION: Interval placement of endotracheal tube and nasogastric tube. New diffuse interstitial an d alveolar opacity with a perihilar/upper lobe predominance. Findings suspicious for infectious pneumonitis or aspiration. Covid 19 is a possibility.
[2020-03-12 00:37] LABS: #Lymphocytes 0.7 thou/uL (1.20-3.40); #Monocytes 0.9 thou/uL (0.11-0.59); #Neutrophils 7.6 thou/uL (1.40-6.50); %Basophils 0.2 % (0.0-1.0); %Eosinophils 0.2 % (0.0-10.0); %Lymphocytes 7.6 % (21.0-51.0); %Monocytes 9.8 % (0.0-10.0); %Neutrophils 82.2 % (42.0-75.0); Hemoglobin 10.5 g/dL (14.0-18.0); Mean Corpuscular HGB CONC 32.2 g/dL (32.0-36.0); Mean Corpuscular Hemoglobin 35.6 pg (27.0-31.0); Mean Platelet Volume 8.7 fL (7.4-10.4); Platelet Count 77 thou/uL (130-400); RBC Distribution Width 13.1 % (11.5-14.5); Red Blood Cell (RBC) Count 2.96 mill/uL (4.70-6.10); White Blood Cell (WBC) Count 9.2 thou/uL (4.8-10.8)
[2020-03-12 00:57] LABS: Anion Gap 11 mmol/L (10-20); BUN (Urea Nitrogen) Less than 4 mg/dL (8.4-25.7); Calc. Creatinine Clearance 153 mL/min (70-130); Calcium 6.8 mg/dL (7.8-10.44); Carbon Dioxide 26 mmol/L (23-31); Chloride 99 mmol/L (98-107); Glucose 140 mg/dL (80-115); Magnesium 1.6 mg/dL (1.6-2.6); Potassium 3.4 mmol/L (3.5-5.1); Sodium 133 mmol/L (136-145)
[2020-03-12] MEDS ORDERED: Morphine 2 MG/ML VIAL SLOW IVP PRN (01:00)
[2020-03-12] MEDS ORDERED: Fentanyl BOLUS 250 ML IVPB PRN (01:00)
[2020-03-12] MEDS ORDERED: DISCONTINUE PREVIOUS NARCOTIC PAIN MEDICATIONS AND BENZODIAZEPINES FS SCH (01:00)
[2020-03-12] MEDS ORDERED: Propofol BOLUS 1,000 MG/100 ML VIAL IV PRN (01:00)
[2020-03-12 01:03] LABS: Troponin I 0.015 ng/mL (< 0.028)
--- NOTE | 2020-03-12 01:10 | PDOC.CNTRL ---
Central Line Procedure Note - Procedure Date: 03/12/20 Time: 00:15 - Description Procedure in Details: INDICATION: ROSC, Unable to obtain venous access PROCEDURE BOOKKEEPER RECEPTIONIST: Lucero Rivera MD, Juan Diego Mahan DO ATTENDING PHYSICIAN: Dr. Lares In Attendance Ultrasound Used: Y PROCEDURE SUMMARY: My hands were washed immediately prior to the procedure. I wore a surgical cap, mask with protective eyewear, sterile gown and sterile gloves throughout the procedure. The RIGHT inguinal region was prepped using chlorhexidine scrub and draped in sterile fashion using a full drape and sterile probe cover employed. The femoral pulse was identified. Anesthesia was not used as patient was sedated. Using US guidance throughout the procedure, the introducer needle was inserted medial to the femoral artery, inferior to the inguinal crease and into the femoral vein. Venous blood was withdrawn. The syringe was removed and a guidewire was advanced into the introducer needle. A small incision was made at the skin surface with a scalpel and the introducer needle was exchanged for a dilator over the guidewire. After appropriate dilation was obtained, the dilator was exchanged over the wire for a 3 lumen central venous catheter. The wire was removed and the catheter was sutured in place at 20 cm. A sterile sorbaview shield was placed over the catheter at the insertion site. The patient tolerated the procedure without any hemodynamic compromise. At time of procedure completion, all ports aspirated and flushed properly. Estimated blood loss is 5 cc
[2020-03-12] MEDS: Vancomycin 1.5 GRAM/300 ML BAG 1.5 GM in Premix Bag 1 BAG IVPB SCH ×3 (01:23→20:27)
[2020-03-12] MEDS: fentaNYL Citrate/PF 2,000 MCG in Sodium Chloride 0.9% 60 ML IV SCH (02:12)
[2020-03-12] MEDS ORDERED: Sodium Chloride 0.9% 1,000 ML IV SCH (03:00)
[2020-03-12] MEDS: Norepinephrine 8 MG in Dextrose 5% in Water 242 ML IVPB PRN ×2 (03:14→21:40)
[2020-03-12] MEDS: Piperacillin/Tazobactam 3.375 GM in Sodium Chloride 0.9% 100 ML IVPB SCH ×4 (03:25→20:06)
[2020-03-12] MEDS ORDERED: Magnesium 2 GM/50 ML 2 GM in Premix Bag 1 BAG IVPB SCH (05:00)
[2020-03-12 05:18] LABS: #Eosinphils 0.1 thou/uL (0.0-0.7); #Lymphocytes 0.7 thou/uL (1.20-3.40); #Monocytes 1.1 thou/uL (0.11-0.59); #Neutrophils 7.3 thou/uL (1.40-6.50); %Basophils 0.2 % (0.0-1.0); %Eosinophils 0.5 % (0.0-10.0); %Monocytes 11.5 % (0.0-10.0); %Neutrophils 79.8 % (42.0-75.0); Hemoglobin 9.8 g/dL (14.0-18.0); Mean Corpuscular HGB CONC 32.7 g/dL (32.0-36.0); Mean Corpuscular Hemoglobin 37.1 pg (27.0-31.0); Mean Platelet Volume 9.4 fL (7.4-10.4); Platelet Count 73 thou/uL (130-400); RBC Distribution Width 13.1 % (11.5-14.5); Red Blood Cell (RBC) Count 2.64 mill/uL (4.70-6.10); White Blood Cell (WBC) Count 9.2 thou/uL (4.8-10.8)
[2020-03-12 05:21] LABS: Anion Gap 10 mmol/L (10-20); BUN (Urea Nitrogen) Less than 4 mg/dL (8.4-25.7); Calc. Creatinine Clearance 151 mL/min (70-130); Calcium 6.7 mg/dL (7.8-10.44); Carbon Dioxide 28 mmol/L (23-31); Chloride 100 mmol/L (98-107); Glucose 108 mg/dL (80-115); Magnesium 1.6 mg/dL (1.6-2.6); Potassium 3.4 mmol/L (3.5-5.1); Sodium 135 mmol/L (136-145)
[2020-03-12] MEDS: Levothyroxine Sodium 100 MCG TAB PO SCH (05:25)
[2020-03-12] MEDS: Potassium Chloride 20 MEQ in Premix Bag 1 BAG IVPB SCH ×2 (05:36→07:56)
[2020-03-12] MEDS ORDERED: Piperacillin/Tazobactam 4.5 GM in Sodium Chloride 0.9% 100 ML IVPB SCH (06:00)
[2020-03-12] MEDS: Lorazepam 2 MG/ML VIAL SLOW IVP PRN ×2 (07:19→15:41)
[2020-03-12] MEDS: NS 0.9% w/ 20 MEQ KCL 1,000 ML/1,000 ML BAG IV SCH (07:21)
[2020-03-12] MEDS: Sodium Chloride 0.9% 1,000 ML IV SCH ×2 (07:22→17:22)
[2020-03-12] MEDS: Mometasone 200 MCG/Formoterol 5 MCG 120 PUFF INHALER INH SCH ×2 (07:42→19:11)
[2020-03-12] MEDS: Gabapentin 300 MG CAP PO SCH (09:00)
[2020-03-12] MEDS: Gabapentin 400 MG CAP PO SCH ×3 (09:00→20:08)
[2020-03-12] MEDS: Propofol 1,000 MG/100 ML VIAL IV PRN ×3 (09:30→20:06)
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
[2020-03-12] MEDS: DULoxetine 60 MG CAP PO SCH ×2 (09:51→20:09)
[2020-03-12] MEDS: Docusate 100 MG CAP PO SCH ×2 (09:51→20:11)
[2020-03-12] MEDS: Ferrous Sulfate 325 MG TAB PO SCH (09:51)
[2020-03-12] MEDS: carBAMazepine 200 MG TAB PO SCH ×2 (09:51→20:09)
[2020-03-12] MEDS: Folic Acid 1 MG TAB PO SCH (09:51)
[2020-03-12] MEDS: Polyethylene Glycol 3350 17 GM Packet PO SCH (09:51)
[2020-03-12] MEDS: Metoprolol Tartrate 25 MG TAB PO SCH ×2 (09:52→20:11)
[2020-03-12] MEDS: Hydroxychloroquine Sulfate 200 MG TAB PO SCH ×2 (09:53→20:16)
[2020-03-12] MEDS: Carbidopa/Levodopa 10-100 mg Tablet PO SCH ×3 (09:53→20:12)
[2020-03-12] MEDS: pyridOXINE 50 MG (B6) TAB PO SCH (09:54)
[2020-03-12] MEDS: Timolol 0.5% Ophth Soln 5 ml Bottle EA EYE SCH ×2 (09:55→20:25)
--- NOTE | 2020-03-12 14:13 | PDOC.HOSPP ---
- Subjective Encounter Date: 03/12/20 Encounter Time: 11:00 Subjective: pt seen in the ICU overnight events noted. He is intubated. He is on Levophed at 2mcg/h he will be weaned off soon. Discussed with RN. - Objective Vital Signs & Weight: Vital Signs (12 hours) Temp Pulse Resp BP Pulse Ox 03/12/20 11:10 83 134/80 03/12/20 09:55 82 122/73 03/12/20 08:00 18 03/12/20 07:42 79 18 100 03/12/20 07:40 80 145/87 H 100 03/12/20 07:00 99.2 F 03/12/20 06:00 18 03/12/20 04:00 98.5 F 18 03/12/20 02:42 78 85/58 L Weight Admit Weight 146 lb 14.4 oz Weight 149 lb 11.102 oz Most Recent Monitor Data Heart Rate from ECG 70 NIBP 84/55 NIBP BP-Mean 64 Respiration from ECG 18 SpO2 94 I&O: 03/11/20 03/12/20 03/13/20 06:59 06:59 06:59 Intake Total 2760 3563.4 100 Output Total 525 920 170 Balance 2235 2643.4 -70 Result Diagrams: 03/12/20 04:05 03/12/20 04:05 Additional Labs: Accuchecks 03/11/20 22:13 POC Glucose 112 H Hospitalist ROS - Medication Medications: Active Medications Generic Name Dose Route Start Last Admin Trade Name Freq PRN Reason Stop Dose Admin Carbamazepine 200 mg 03/10/20 09:00 03/12/20 09:51 Carbamazepine 200 Mg Tab PO 200 mg BID NICKOLAS Administration Carbidopa/Levodopa 1 tab 03/10/20 09:00 03/12/20 09:53 Carbidopa/Levodopa 10-100 Mg Tablet PO 1 tab TID NICKOLAS Administration Docusate Sodium 100 mg 03/10/20 09:00 03/12/20 09:51 Docusate 100 Mg Cap PO 100 mg BID NICKOLAS Administration Duloxetine HCl 60 mg 03/10/20 09:00 03/12/20 09:51 Duloxetine 60 Mg Cap PO 60 mg BID NICKOLAS Administration Ferrous Sulfate 325 mg 03/10/20 09:00 03/12/20 09:51 Ferrous Sulfate 325 Mg Tab PO 325 mg DAILY NICKOLAS Administration Folic Acid 1 mg 03/12/20 09:00 03/12/20 09:51 Folic Acid 1 Mg Tab PO 1 mg DAILY NICKOLAS Administration Gabapentin 1,200 mg 03/11/20 21:00 03/12/20 09:00 Gabapentin 400 Mg Cap PO Not Given TID NICKOLAS Hydroxychloroquine Sulfate 200 mg 03/10/20 09:00 03/12/20 09:53 Hydroxychloroquine Sulfate 200 Mg Tab PO 200 mg BID NICKOLAS Administration Piperacillin Sod/Tazobactam 100 mls @ 200 mls/hr 03/10/20 03:00 03/12/20 09:58 Sod 3.375 gm/ Sodium Chloride IVPB 100 mls 0300,0900,1500,2100 NICKOLAS Administration Potassium Chloride/Sodium Chloride 1,000 ml in 1,000 mls @ 50 mls/hr 03/11/20 10:45 03/12/20 07:21 Ns 0.9% W/ 20 Meq Kcl IV 03/13/20 02:44 1,000 mls .Q20H NICKOLAS Administration Sodium Chloride 1,000 mls @ 100 mls/hr 03/11/20 10:45 03/12/20 07:22 Normal Saline 0.9% IV 1,000 mls .Q10H NICKOLAS Administration Vancomycin HCl 1.5 gm/ Device 300 mls @ 200 mls/hr 03/11/20 11:00 03/12/20 11:30 IVPB 03/17/20 14:00 300 mls 1100,2300 NICKOLAS Administration Fentanyl Citrate 2,000 mcg/ 100 mls @ 0 mls/hr 03/12/20 01:00 03/12/20 02:12 Sodium Chloride IV 04/11/20 01:00 100 mls INF NICKOLAS Administration Protocol Per Protocol Norepinephrine Bitartrate 8 mg 250 mls @ 0 mls/hr 03/12/20 03:00 03/12/20 03:14 / Dextrose/Water IVPB 250 mls INF PRN Administration TO MAINTAIN MAP > 65 Protocol As Directed Latanoprost 0 drop 03/11/20 21:00 03/11/20 20:12 Latanoprost 0.005% Ophth Soln 2.5 Ml Bottle EA EYE 1 drop HS NICKOLAS Administration Levothyroxine Sodium 100 mcg 03/10/20 06:00 03/12/20 05:25 Levothyroxine Sodium 100 Mcg Tab PO 100 mcg 0600 NICKOLAS Administration Lorazepam 2 mg 03/12/20 01:00 03/12/20 07:19 Lorazepam 2 Mg/Ml Vial SLOW IVP 04/11/20 01:00 2 mg Q1H PRN Administration Breakthrough agitation Methocarbamol 750 mg 03/10/20 21:00 03/11/20 20:18 Methocarbamol 500 Mg Tab PO 750 mg HS NICKOLAS Administration Metoprolol Tartrate 25 mg 03/11/20 21:00 03/12/20 09:52 Metoprolol Tartrate 25 Mg Tab PO 25 mg BID NICKOLAS Administration Mometasone Furoate/Formoterol Fumar 2 puff 03/10/20 06:30 03/12/20 07:42 Mometasone 200 Mcg/Formoterol 5 Mcg 120 Puff Inhaler INH 2 puff BID-RT NICKOLAS Administration Pantoprazole Sodium 40 mg 03/11/20 21:00 03/12/20 09:54 Pantoprazole 40 Mg Tab PO Not Given BID NICKOLAS Polyethylene Glycol 17 gm 03/10/20 09:00 03/12/20 09:51 Polyethylene Glycol 3350 17 Gm Packet PO 17 gm DAILY NICKOLAS Administration Propofol 1,000 mg 03/12/20 01:00 03/12/20 09:30 Propofol 1,000 Mg/100 Ml Vial IV 04/11/20 01:00 1,000 mg INF PRN Administration TO ACHIEVE GOAL RASS Protocol Pyridoxine HCl 50 mg 03/12/20 09:00 03/12/20 09:54 Pyridoxine 50 Mg (B6) Tab PO 50 mg DAILY NICKOLAS Administration Sodium Chloride 10 ml 03/11/20 21:00 03/12/20 09:55 Flush - Normal Saline 10 Ml Syringe IVF 10 ml Q12HR NICKOLAS Administration Terazosin HCl 10 mg 03/11/20 21:00 03/11/20 20:17 Terazosin Hcl 5 Mg Cap PO 10 mg HS NICKOLAS Administration Timolol Maleate 1 drop 03/11/20 21:00 03/12/20 09:55 Timolol 0.5% Ophth Soln 5 Ml Bottle EA EYE 1 drop BID NICKOLAS Administration - Exam General - other findings: On vent Eye: PERRL ENT: normocephalic atraumatic Neck: supple, no lymphadenopathy Heart: RRR, normal peripheral pulses Respiratory: CTAB, normal chest expansion Gastrointestinal: soft, normal bowel sounds Neurological: no focal deficits Psychiatric: not oriented Hosp A/P - Plan 83 year old male with PMH doyle over 70% of body with resulting muscle weakness, COPD, fibromyalgia, parkinsons, seizure disorder, vitamin b deficiency, hypothyroidismwho presents to ED after fall at home. # fall at home and no LOC # purulent cellulitis secondary to infected sacral wound # sepsis secondary to skin/soft tissue infection - UA benign; CXR clear, CT spine w/ multilevel cervical spondylosis, CT head with on acute IC abnormalities. - empiric vancomycin/zosyn, IVF, montior culture results - wound care nursing consults # hypokalemia - replaced. Pt/OT CAse mgmt pt lives alone, may need to go to SNF Full code pl note this note missed yesterday. He is little anxious to get home. He states that he has a provider as well as nursing comes 3 times a week to his home. If wound care ulcer can be addressed at home then will discharge him tomorrow. 17th Last night CODE HATTIE was called because patient found unresponsive and initially had PEA. He was intubated by the ER physician on transfer to ICU. Cardiac arrest status post resuscitation. -Follow-up with the echo and cardiology evaluation, EEG and neuro evaluation.
--- NOTE | 2020-03-12 16:57 | CON ---
DATE OF CONSULTATION: 03/12/2020 IMPRESSION: Cardiac arrest with possible mild anoxic brain injury. PLAN: Continue supportive measures. HISTORY OF PRESENT ILLNESS: Mr. Delcid is an elderly gentleman who was admitted a few days ago with a wound and some secondary sepsis. He has a past history of COPD, Parkinson's, diffuse doyle, seizure disorder, and hypothyroidism. He was found to be in cardiopulmonary arrest. Resuscitation was undertaken. He was subsequently intubated and brought into the ICU. Earlier today, he was off sedation and according to the nurses, was thrashing and responding to commands to some degree. He is currently deeply sedated with propofol. PAST MEDICAL HISTORY: As listed above. ALLERGIES: NONE REPORTED. SOCIAL HISTORY: No tobacco or alcohol use. FAMILY HISTORY: Unremarkable. REVIEW OF SYSTEMS: Not obtainable at this point. PHYSICAL EXAMINATION: GENERAL: He is a well-nourished elderly man, lying quietly. VITAL SIGNS: Blood pressure 106/64, pulse 72, respirations 18, and temperature afebrile. HEENT: Pupils are pinpoint, minimally reactive. Conjunctivae clear. He is orally intubated. NECK: No lymphadenopathy. EXTREMITIES: No cyanosis or edema. SKIN: There is some diffuse scarring from his doyle. ABDOMEN: Soft. NEUROLOGIC: He is currently sedated, nonresponsive. No abnormal movements were seen. LABORATORY STUDIES: Show white blood cell count 9.2, hemoglobin 9, platelet count is 73,000. His BNP was markedly elevated. His COVID test was negative. SUMMARY: This is an elderly man who suffered a cardiopulmonary arrest for indeterminate reasons at this point. His EEG would suggest minimal neurologic injury at this point. Continue supportive measures are indicated. Job ID: [id number]
[2020-03-12] MEDS: Latanoprost 0.005% Ophth Soln 2.5 ml Bottle EA EYE SCH (20:21)
[2020-03-12] MEDS: Methocarbamol 500 MG TAB PO SCH (20:23)
[2020-03-12] MEDS: Terazosin HCl 5 MG CAP PO SCH (20:25)
[2020-03-12 22:20] LABS: Vancomycin, Trough 15.6 ug/mL
[2020-03-13] MEDS: Piperacillin/Tazobactam 3.375 GM in Sodium Chloride 0.9% 100 ML IVPB SCH ×4 (02:16→20:54)
[2020-03-13] MEDS: Sodium Chloride 0.9% 1,000 ML IV SCH ×3 (02:16→20:53)
[2020-03-13 04:55] LABS: Anion Gap 9 mmol/L (10-20); BUN (Urea Nitrogen) Less than 4 mg/dL (8.4-25.7); Calc. Creatinine Clearance 162 mL/min (70-130); Calcium 6.5 mg/dL (7.8-10.44); Carbon Dioxide 26 mmol/L (23-31); Chloride 103 mmol/L (98-107); Glucose 70 mg/dL (80-115); Potassium 3.3 mmol/L (3.5-5.1); Sodium 135 mmol/L (136-145)
[2020-03-13] MEDS: Propofol 1,000 MG/100 ML VIAL IV PRN ×3 (05:10→20:55)
[2020-03-13] MEDS: Levothyroxine Sodium 100 MCG TAB PO SCH (05:10)
[2020-03-13 05:42] LABS: Band 7 % (5-11); Hemoglobin 9.8 g/dL (14.0-18.0); Lymphocytes 9 % (21-51); MDiff Complete? YES; Mean Corpuscular HGB CONC 32.9 g/dL (32.0-36.0); Mean Corpuscular Hemoglobin 36.7 pg (27.0-31.0); Mean Platelet Volume 8.3 fL (7.4-10.4); Monocytes 10 % (0-10); Neutrophil 74 % (42-75); Platelet Count 80 thou/uL (130-400); Platelet Morphology Comment Appears Decreased; RBC Distribution Width 13.2 % (11.5-14.5); Red Blood Cell (RBC) Count 2.67 mill/uL (4.70-6.10); White Blood Cell (WBC) Count 9.8 thou/uL (4.8-10.8)
[2020-03-13] MEDS ORDERED: Potassium Chloride 20 MEQ TAB PO SCH (06:30)
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
[2020-03-13] MEDS: Mometasone 200 MCG/Formoterol 5 MCG 120 PUFF INHALER INH SCH ×2 (07:44→18:45)
[2020-03-13 08:06] LABS: Actual Bicarbonate (HCO3a) 24.2 mEq/L (22-28); Base Excess (BEa) 0.1 mEq/L (-2.0 to +3.0); CO2 Tension 36.9 mmHg (35.0-45.0); Calcium, Ionized (arterial) 1.09 mmol/L (1.12-1.30); Carboxyhemoglobin (COHb) 2.4 gm% (0.0-3.0); Potassium - ABG Lab 3.27 mmol/L (3.70-5.30); pH, Arterial 7.43 (7.35-7.45)
--- NOTE | 2020-03-13 08:13 | PRG ---
DATE OF SERVICE: 03/13/2020 SUBJECTIVE: Mr. Delcid is currently intubated, sedated. No current issues noted overnight. The patient's CKs and troponins have been negative since his recent PEA arrest. OBJECTIVE: VITAL SIGNS: Blood pressure 123/72, pulse 88, and respirations 20. GENERAL: The patient is currently intubated and sedated. LUNGS: Rhonchi and rales bilaterally. HEART: Regular rate and rhythm. ABDOMEN: Soft, nontender, and nondistended. EXTREMITIES: No edema. PERTINENT LABORATORY DATA: Hemoglobin 9.8, platelet count 80,000. Creatinine 0.42, potassium 3.3, and sodium 133. BNP of 735. IMPRESSION: 1. Recent cardiopulmonary arrest. 2. Status post pacemaker. Etiology to current cardiopulmonary arrest is unknown. Sepsis certainly has a differential. His EKG did not suggest a significant rhythm issue as his underlying cause. We would like to interrogate his pacemaker. His CKs and troponins have been negative. His BNP is elevated at 700 and we will recommend checking echo. Otherwise, continue current support. Job ID: [id number]
[2020-03-13 08:20] LABS: O2 Tension (PaO2), arterial 53.5 mmHg (> 80.0); Puncture Site LRA
[2020-03-13 08:21] LABS: ALV-art Gradient 185.575 mmHg (0-20)
--- NOTE | 2020-03-13 08:22 | RAD ---
EXAM: Single view of the chest HISTORY: Pneumonia COMPARISON: 03/11/2020 FINDINGS: Single view of the chest shows a normal sized cardiomediastinal silhouette. The pacemaker is unchanged in position. The lines and tubes are unchanged in position. Scattered stable multifocal infiltrates are seen in the lungs. No acute osseous abnormality. IMPRESSION: Stable exam
--- NOTE | 2020-03-13 08:39 | PRG ---
DATE OF SERVICE: 03/13/2020 35 minutes critical care time. SUBJECTIVE: The patient remains intubated on mechanical ventilation. Neurologically, kinked him to wake up by the tube and it look like he nods his commands, but he would not any following commands specifically. OBJECTIVE: VITAL SIGNS: His temperature is 99.8 with T-max 100.0, pulse 91, blood pressure 123/72. 24-hour intake 4651, output 1328. HEENT: Unremarkable except for being intubated. NECK: No JVD. LUNGS: Coarse crackles bilaterally. CARDIOVASCULAR: S1, S2. Regular. ABDOMEN: Soft and nontender. EXTREMITIES: No clubbing, cyanosis, or edema. LABORATORY DATA: White blood cell count 9.8, hematocrit 29.8, and platelet count 80. ABG pending. Sodium 135, potassium 3.3, chloride 103, CO2 of 26, BUN 4, creatinine 0.4, glucose 70. His chest x-ray shows bilateral infiltrates. ASSESSMENT: 1. Status post cardiopulmonary arrest with pulseless electrical activity. 2. Bilateral aspiration pneumonia. 3. Sepsis from infected sacral decubitus wound. 4. Acute respiratory failure requiring mechanical ventilation. PLAN: 1. Continue antibiotics. 2. Follow up blood gas today. 3. Start enteral tube feeds. 4. Follow neurologic progress. 5. Overall prognosis is very poor. Job ID: [id number]
[2020-03-13] MEDS: Carbidopa/Levodopa 10-100 mg Tablet PO SCH ×3 (10:27→21:01)
[2020-03-13] MEDS: Gabapentin 400 MG CAP PO SCH (10:27)
[2020-03-13] MEDS: carBAMazepine 200 MG TAB PO SCH ×2 (10:28→20:56)
[2020-03-13] MEDS: Hydroxychloroquine Sulfate 200 MG TAB PO SCH ×2 (10:28→20:57)
[2020-03-13] MEDS: Metoprolol Tartrate 25 MG TAB PO SCH ×2 (10:28→20:56)
[2020-03-13] MEDS: DULoxetine 60 MG CAP PO SCH (10:28)
[2020-03-13] MEDS ORDERED: Gabapentin 400 MG CAP PO SCH ×2 (10:29→10:45)
[2020-03-13] MEDS: Ferrous Sulfate 325 MG TAB PO SCH (10:29)
[2020-03-13] MEDS: Docusate 100 MG CAP PO SCH ×2 (10:29→20:56)
[2020-03-13] MEDS: pyridOXINE 50 MG (B6) TAB PO SCH (10:29)
[2020-03-13] MEDS: Polyethylene Glycol 3350 17 GM Packet PO SCH (10:30)
[2020-03-13] MEDS: Folic Acid 1 MG TAB PO SCH (10:30)
[2020-03-13] MEDS: Timolol 0.5% Ophth Soln 5 ml Bottle EA EYE SCH ×2 (10:31→20:57)
[2020-03-13] MEDS: Vancomycin 1.5 GRAM/300 ML BAG 1.5 GM in Premix Bag 1 BAG IVPB SCH ×2 (11:53→23:20)
[2020-03-13] MEDS ORDERED: Iopamidol-370 76% 500 ML 1 ML ONE (11:57)
--- NOTE | 2020-03-13 14:31 | PDOC.HOSPP ---
- Subjective Encounter Date: 03/13/20 Encounter Time: 10:55 Subjective: Patient on vent. He is still on a low-dose Levophed. And he is sedated with fentanyl. Will reduce his home regimens. I discussed with the palliative care this morning. Patient do have children and the no one has a medical power of employment attorney as of yet - Objective Vital Signs & Weight: Vital Signs (12 hours) Temp Pulse Resp BP Pulse Ox 03/13/20 12:00 99.1 F 18 03/13/20 10:31 94 117/70 03/13/20 10:16 94 117/70 03/13/20 10:00 18 03/13/20 08:00 18 03/13/20 07:44 88 18 96 03/13/20 07:41 96 03/13/20 07:00 99.3 F 03/13/20 06:00 18 03/13/20 04:00 18 Weight Admit Weight 146 lb 14.4 oz Weight 150 lb 5.684 oz Most Recent Monitor Data Heart Rate from ECG 82 NIBP 116/69 NIBP BP-Mean 84 Respiration from ECG 18 SpO2 96 I&O: 03/12/20 03/13/20 03/14/20 06:59 06:59 06:59 Intake Total 3563.4 4651.0 520 Output Total 920 1328 525 Balance 2643.4 3323.0 -5 Result Diagrams: 03/13/20 04:00 03/13/20 04:00 Hospitalist ROS - Medication Medications: Active Medications Generic Name Dose Route Start Last Admin Trade Name Freq PRN Reason Stop Dose Admin Carbamazepine 200 mg 03/10/20 09:00 03/13/20 10:28 Carbamazepine 200 Mg Tab PO 200 mg BID NICKOLAS Administration Carbidopa/Levodopa 1 tab 03/10/20 09:00 03/13/20 10:27 Carbidopa/Levodopa 10-100 Mg Tablet PO 1 tab TID NICKOLAS Administration Docusate Sodium 100 mg 03/10/20 09:00 03/13/20 10:29 Docusate 100 Mg Cap PO 100 mg BID NICKOLAS Administration Hydroxychloroquine Sulfate 200 mg 03/10/20 09:00 03/13/20 10:28 Hydroxychloroquine Sulfate 200 Mg Tab PO 200 mg BID NICKOLAS Administration Piperacillin Sod/Tazobactam 100 mls @ 200 mls/hr 03/10/20 03:00 03/13/20 10:30 Sod 3.375 gm/ Sodium Chloride IVPB 100 mls 0300,0900,1500,2100 NICKOLAS Administration Vancomycin HCl 1.5 gm/ Device 300 mls @ 200 mls/hr 03/11/20 11:00 03/13/20 11:53 IVPB 03/17/20 14:00 300 mls 1100,2300 NICKOLAS Administration Fentanyl Citrate 2,000 mcg/ 100 mls @ 0 mls/hr 03/12/20 01:00 03/12/20 02:12 Sodium Chloride IV 04/11/20 01:00 100 mls INF NICKOLAS Administration Protocol Per Protocol Norepinephrine Bitartrate 8 mg 250 mls @ 0 mls/hr 03/12/20 03:00 03/12/20 21:40 / Dextrose/Water IVPB 250 mls INF PRN Administration TO MAINTAIN MAP > 65 Protocol As Directed Sodium Chloride 1,000 mls @ 70 mls/hr 03/13/20 08:08 03/13/20 08:30 Normal Saline 0.9% IV 1,000 mls .[id number] NICKOLAS Administration Latanoprost 0 drop 03/11/20 21:00 03/12/20 20:21 Latanoprost 0.005% Ophth Soln 2.5 Ml Bottle EA EYE 1 drop HS NICKOLAS Administration Levothyroxine Sodium 100 mcg 03/10/20 06:00 03/13/20 05:10 Levothyroxine Sodium 100 Mcg Tab PO 100 mcg 0600 NICKOLAS Administration Metoprolol Tartrate 25 mg 03/11/20 21:00 03/13/20 10:28 Metoprolol Tartrate 25 Mg Tab PO 25 mg BID NICKOLAS Administration Mometasone Furoate/Formoterol Fumar 2 puff 03/10/20 06:30 03/13/20 07:44 Mometasone 200 Mcg/Formoterol 5 Mcg 120 Puff Inhaler INH 2 puff BID-RT NICKOLAS Administration Pantoprazole Sodium 40 mg 03/11/20 21:00 03/13/20 10:30 Pantoprazole 40 Mg Tab PO 40 mg BID NICKOLAS Administration Polyethylene Glycol 17 gm 03/10/20 09:00 03/13/20 10:30 Polyethylene Glycol 3350 17 Gm Packet PO 17 gm DAILY NICKOLAS Administration Propofol 1,000 mg 03/12/20 01:00 03/13/20 05:10 Propofol 1,000 Mg/100 Ml Vial IV 04/11/20 01:00 1,000 mg INF PRN Administration TO ACHIEVE GOAL RASS Protocol Sodium Chloride 10 ml 03/11/20 21:00 03/13/20 10:30 Flush - Normal Saline 10 Ml Syringe IVF 10 ml Q12HR NICKOLAS Administration Terazosin HCl 10 mg 03/11/20 21:00 03/12/20 20:25 Terazosin Hcl 5 Mg Cap PO 10 mg HS NICKOLAS Administration Timolol Maleate 1 drop 03/11/20 21:00 03/13/20 10:31 Timolol 0.5% Ophth Soln 5 Ml Bottle EA EYE 1 drop BID NICKOLAS Administration - Exam General Appearance: ill appearing General - other findings: On vent Eye: PERRL ENT: normocephalic atraumatic Neck: supple Heart: RRR Respiratory: CTAB Gastrointestinal: soft, normal bowel sounds Psychiatric: not oriented Hosp A/P - Plan 83 year old male with PMH doyle over 70% of body with resulting muscle weakness, COPD, fibromyalgia, parkinsons, seizure disorder, vitamin b deficiency, hypothyroidismwho presents to ED after fall at home. # fall at home and no LOC # purulent cellulitis secondary to infected sacral wound # sepsis secondary to skin/soft tissue infection - UA benign; CXR clear, CT spine w/ multilevel cervical spondylosis, CT head with on acute IC abnormalities. - empiric vancomycin/zosyn, IVF, montior culture results - wound care nursing consults # hypokalemia - replaced. 17th Last night CODE HATTIE was called because patient found unresponsive and initially had PEA. He was intubated by the ER physician on transfer to ICU. Cardiac arrest status post resuscitation. -Follow-up with the echo and cardiology evaluation, EEG and neuro evaluation. 18th Status post cardiopulmonary arrest and resuscitation --Will reduce and dc some of his home meds as he is on high-dose gabapentin and several other medications. Enteral tube feed. Echo showed EF of 55% D-shaped septum suggesting pressure overload. -right ventricular Enlargement -mitral regurgitation and mildly elevated pulmonary artery pressure. - He is on antibiotics for his cellulitis at the infected sacral wound Patient lives alone and he has a care provider and home health visiting nurse 3 times a week Patient currently full code. I discussed with the palliative care this morning. Patient do have children and the no one has a medical power of employment attorney as of yet.
--- NOTE | 2020-03-13 15:39 | CT ---
CT PULMONARY ANGIOGRAM WITH IV CONTRAST AND 3-D POSTPROCESSING: HISTORY:Respiratory failure, Concern for pulmonary embolism FINDINGS: There is good contrast opacification of the pulmonary arterial vasculature without filling defects to suggest pulmonary embolism. The thoracic aorta is well opacified without aneurysm or dissection. Moderate-sized bilateral pleural effusions are seen with adjacent atelectatic changes. There are emph ysematous changes. Mild patchy opacities are seen in the left upper lobes posteriorly. No pneumothoraces, focal areas of consolidation or lung nodules are noted. There are degenerative changes in the spine. There is compression of a midthoracic vertebral body. IMPRESSION: No CT evidence of pulmonary embolism.
[2020-03-13] MEDS: Gabapentin 300 MG CAP PO SCH ×2 (16:02→20:55)
[2020-03-13] MEDS: fentaNYL Citrate/PF 2,000 MCG in Sodium Chloride 0.9% 60 ML IV SCH (16:19)
[2020-03-13] MEDS: Lidocaine Patch Removal 1 EACH TOP SCH ×2 (19:18→19:19)
[2020-03-13] MEDS: Terazosin HCl 5 MG CAP PO SCH (20:55)
[2020-03-13] MEDS: Methocarbamol 500 MG TAB PO PRN (20:56)
[2020-03-13] MEDS: Latanoprost 0.005% Ophth Soln 2.5 ml Bottle EA EYE SCH (21:00)
[2020-03-14] MEDS: Piperacillin/Tazobactam 3.375 GM in Sodium Chloride 0.9% 100 ML IVPB SCH ×4 (02:57→21:15)
[2020-03-14 04:49] LABS: Anion Gap 14 mmol/L (10-20); BUN (Urea Nitrogen) Less than 4 mg/dL (8.4-25.7); Calc. Creatinine Clearance 166 mL/min (70-130); Calcium 6.3 mg/dL (7.8-10.44); Carbon Dioxide 23 mmol/L (23-31); Chloride 101 mmol/L (98-107); Sodium 135 mmol/L (136-145)
[2020-03-14 04:53] LABS: Critical Call Chemistry ICU.RB@0452; Glucose 44 mg/dL (80-115); Potassium 2.9 mmol/L (3.5-5.1)
[2020-03-14] MEDS: Levothyroxine Sodium 100 MCG TAB PO SCH (05:14)
[2020-03-14 05:36] LABS: Band 4 % (5-11); Eosinophils 1 % (0-10); Hemoglobin 9.1 g/dL (14.0-18.0); Lymphocytes 5 % (21-51); MDiff Complete? YES; Macrocytosis SLIGHT = 6-15 cells (100X) (0-5/hpf); Mean Corpuscular Hemoglobin 36.7 pg (27.0-31.0); Mean Platelet Volume 8.5 fL (7.4-10.4); Monocytes 8 % (0-10); Neutrophil 80 % (42-75); Platelet Count 79 thou/uL (130-400); Platelet Morphology Comment Appears Decreased; RBC Distribution Width 13.4 % (11.5-14.5); Red Blood Cell (RBC) Count 2.47 mill/uL (4.70-6.10); Target Cells SLIGHT = 2-5 cells (100X) (0-1/hpf); White Blood Cell (WBC) Count 8.2 thou/uL (4.8-10.8)
[2020-03-14] MEDS ORDERED: Dextrose 50% Abboject 50 ML SYRINGE ONE (05:50)
[2020-03-14] MEDS: Propofol 1,000 MG/100 ML VIAL IV PRN (05:55)
[2020-03-14] MEDS ORDERED: Potassium Chloride 40 MEQ in Sodium Chloride 0.9% 250 ML 250 ML IVPB SCH (06:30)
[2020-03-14] MEDS: Mometasone 200 MCG/Formoterol 5 MCG 120 PUFF INHALER INH SCH ×2 (07:38→19:15)
--- NOTE | 2020-03-14 08:02 | RAD ---
XR Chest 1 View Portable History: Pneumonia Comparison: Radiograph prior day Findings: Endotracheal tube tip above the mona 2.5 cm. Enteric tube tip below diaphragm although ou t of field of view. Dual-lead pacer electrodes are similar. Pleural effusions and parenchymal opacities are similar. Impression: Similar examination of the chest without worsening lung aeration.
[2020-03-14 08:05] LABS: Base Excess (BEa) 2.4 mEq/L (-2.0 to +3.0); CO2 Tension 36.2 mmHg (35.0-45.0); Calcium, Ionized (arterial) 1.05 mmol/L (1.12-1.30); Carboxyhemoglobin (COHb) 2.5 gm% (0.0-3.0); Hemoglobin (Hb) 9.5 g/dL (14.0-18.0); O2 Tension (PaO2), arterial 78.2 mmHg (> 80.0); Potassium - ABG Lab 2.89 mmol/L (3.70-5.30); pH, Arterial 7.47 (7.35-7.45)
[2020-03-14 08:14] LABS: Puncture Site LRA
[2020-03-14] MEDS ORDERED: DULoxetine 60 MG CAP PO SCH (09:00)
[2020-03-14] MEDS: Potassium Chloride 40 MEQ in Premix Bag 1 BAG IVPB SCH (10:17)
[2020-03-14] MEDS: Metoprolol Tartrate 25 MG TAB PO SCH ×2 (10:19→21:12)
[2020-03-14] MEDS: Polyethylene Glycol 3350 17 GM Packet PO SCH (10:19)
[2020-03-14] MEDS: carBAMazepine 200 MG TAB PO SCH ×2 (10:19→21:16)
[2020-03-14] MEDS: Pantoprazole 40 MG VIAL IVP SCH (10:19)
[2020-03-14] MEDS: Gabapentin 300 MG CAP PO SCH ×3 (10:20→21:12)
[2020-03-14] MEDS: Docusate 100 MG CAP PO SCH ×2 (10:20→21:12)
[2020-03-14] MEDS: Timolol 0.5% Ophth Soln 5 ml Bottle EA EYE SCH ×2 (10:21→21:14)
[2020-03-14] MEDS: Methocarbamol 500 MG TAB PO PRN (10:22)
[2020-03-14] MEDS: Hydroxychloroquine Sulfate 200 MG TAB PO SCH (10:22)
[2020-03-14] MEDS: Carbidopa/Levodopa 10-100 mg Tablet PO SCH ×3 (10:31→21:12)
[2020-03-14 10:58] LABS: Vancomycin, Trough 11.9 ug/mL
[2020-03-14] MEDS: Vancomycin 1.5 GRAM/300 ML BAG 1.5 GM in Premix Bag 1 BAG IVPB SCH (11:37)
--- NOTE | 2020-03-14 11:41 | PRG ---
DATE OF SERVICE: 03/14/2020 35 minutes critical care time. SUBJECTIVE: The patient remains encephalopathic on mechanical ventilation. OBJECTIVE: VITAL SIGNS: His temperature is 98.9, pulse 86, blood pressure 120/71, O2 sat 98%. 24-hour intake 1872 and output 3125. NEUROLOGICAL: I think he may be squeezing hands to commands, but is difficult to tell as he is not doing anything else forming. HEENT: Unremarkable. NECK: No JVD. LUNGS: Coarse breath sounds. CARDIAC: S1, S2. Regular. ABDOMEN: Soft and nontender. EXTREMITIES: No edema. LABORATORY DATA: White blood cell count 8.2, hematocrit 27.5, and platelet count 79. The pH 7.47, pCO2 of 36, pO2 of 78 on SIMV rate 18, tidal volume 500, PEEP 5, pressure 10, FiO2 45%. Sodium 135, potassium 2.9, chloride 101, CO2 of 23, BUN 4, creatinine 0.4, glucose 44. IMAGING DATA: X-ray shows no acute change. ASSESSMENT: 1. Acute respiratory failure, requiring mechanical relation. 2. Status post cardiopulmonary arrest with pulseless electrical activity. 3. Aspiration pneumonia. 4. Infected decubitus. 5. No evidence of pulmonary embolism - does look like he has some degree of pulmonary fibrosis. Also has bilateral small effusions. 6. Echocardiogram showing elevated pulmonary artery pressures. PLAN: 1. Replace potassium. 2. Continue antibiotics. 3. Decrease respiratory rate. 4. Follow neurologic progress. 5. Discussed with the patient's sister yesterday. I think the patient's prognosis is quite poor for functional recovery, but we will continue to treat him for as long as the family feels he is appropriate. Job ID: [id number]
[2020-03-14] MEDS: Sodium Chloride 0.9% 1,000 ML IV SCH ×2 (12:01→23:17)
[2020-03-14 15:10] LABS: Potassium 4.9 mmol/L (3.5-5.1)
--- NOTE | 2020-03-14 16:35 | PRG ---
DATE OF SERVICE: 03/14/2020 SUBJECTIVE: Mr. Dean status is unchanged. He remains intubated and sedated. He has not on pressor support. He is currently receiving tube feeds in addition to potassium IV. REVIEW OF SYSTEMS: Unobtainable. PHYSICAL EXAMINATION: VITAL SIGNS: Blood pressure 120/71, and respirations 20. LUNGS: Clear to auscultation. HEART: Regular rate and rhythm. ABDOMEN: Soft, nontender, and nondistended. EXTREMITIES: No edema. PERTINENT LABORATORY DATA: Hemoglobin 9.1. Glucose 44, creatinine 0.41, and potassium 4.9. IMPRESSION: 1. Cardiopulmonary arrest with pulseless electrical activity. 2. Respiratory failure. 3. Status post pacemaker. 4. Atrial fibrillation. RECOMMENDATIONS: Mr. Dean status is unchanged. CT scan of his chest was negative for PE. The events surrounding the PEA are unknown. This could certainly be underlying coronary artery disease, but his troponins been negative. His LVEF remains normal. There were no significant dysrhythmias such as ventricular tachycardia. This may have precipitated the event. Continue supportive care. He is currently on antibiotic therapy for decubitus ulcer. He did have aspiration pneumonia, which may have been the ultimate culprit, but difficult to ascertain. Prognosis appears guarded. Job ID: [id number]
--- NOTE | 2020-03-14 16:51 | EKG ---
Test Reason : Blood Pressure : / mmHG Vent. Rate : 107 BPM Atrial Rate : 107 BPM P-R Int : 164 ms QRS Dur : 154 ms QT Int : 388 ms P-R-T Axes : 081 080 042 degrees QTc Int : 517 ms Sinus tachycardia with Premature supraventricular complexes Non-specific intra-ventricular conduction block Abnormal ECG Confirmed by EWELINA CONROY ([id number]), mapping editor AMANDA DUMONT ([id number]) on 03/14/2020 4:51:13 PM Referred By: Confirmed By:EWELINA Gamino
--- NOTE | 2020-03-14 17:17 | PDOC.HOSPP ---
- Subjective Encounter Date: 03/14/20 Encounter Time: 17:11 Subjective: 20 patient was seen and evaluated. This is a 70-year-old who is in the intensive care unit on mechanical ventilation. He is unable to provide any meaningful history at this time due to the mechanical ventilation. He appare ntly has cellulitis involving the low back area. His cultures growing Enterococcus faecalis from the urine. He is appropriately on IV antibiotics.(Zosyn and vancomycin) - Objective Vital Signs & Weight: Vital Signs (12 hours) Temp Pulse Resp BP Pulse Ox 03/14/20 16:00 24 H 03/14/20 15:00 98.1 F 03/14/20 14:09 79 106/70 03/14/20 14:00 24 H 03/14/20 12:00 98.4 F 30 H 03/14/20 11:03 83 125/73 03/14/20 10:21 91 124/77 03/14/20 10:00 23 H 03/14/20 08:00 22 H 98 03/14/20 07:39 85 120/67 99 03/14/20 07:38 88 18 99 03/14/20 07:00 98.1 F 03/14/20 05:42 18 Weight Admit Weight 146 lb 14.4 oz Weight 150 lb 5.684 oz Most Recent Monitor Data Heart Rate from ECG 81 NIBP 109/68 NIBP BP-Mean 81 Respiration from ECG 18 SpO2 98 I&O: 03/13/20 03/14/20 03/15/20 06:59 06:59 06:59 Intake Total 4651.0 1872.1 440 Output Total 1328 3125 1300 Balance 3323.0 -1252.9 -860 Result Diagrams: 03/14/20 03:35 03/14/20 14:47 Additional Labs: Accuchecks 03/14/20 03/14/20 11:59 07:49 POC Glucose 107 H 93 Radiology Reviewed by me: Yes EKG Reviewed by me: Yes Hospitalist ROS - Review of Systems Constitutional: reports: weakness Respiratory: reports: shortness of breath, SOB with excertion Gastrointestinal: reports: nausea Neurological: reports: weakness - Medication Medications: Active Medications Generic Name Dose Route Start Last Admin Trade Name Freq PRN Reason Stop Dose Admin Carbamazepine 200 mg 03/10/20 09:00 03/14/20 10:19 Carbamazepine 200 Mg Tab PO 200 mg BID NICKOLAS Administration Carbidopa/Levodopa 1 tab 03/10/20 09:00 03/14/20 15:26 Carbidopa/Levodopa 10-100 Mg Tablet PO 1 tab TID NICKOLAS Administration Docusate Sodium 100 mg 03/10/20 09:00 03/14/20 10:20 Docusate 100 Mg Cap PO 100 mg BID NICKOLAS Administration Gabapentin 300 mg 03/13/20 15:00 03/14/20 14:48 Gabapentin 300 Mg Cap PO 300 mg TID NICKOLAS Administration Piperacillin Sod/Tazobactam 100 mls @ 200 mls/hr 03/10/20 03:00 03/14/20 14:49 Sod 3.375 gm/ Sodium Chloride IVPB 100 mls 0300,0900,1500,2100 NICKOLAS Administration Fentanyl Citrate 2,000 mcg/ 100 mls @ 0 mls/hr 03/12/20 01:00 03/13/20 16:19 Sodium Chloride IV 04/11/20 01:00 100 mls INF NICKOLAS Administration Protocol Per Protocol Norepinephrine Bitartrate 8 mg 250 mls @ 0 mls/hr 03/12/20 03:00 03/12/20 21:40 / Dextrose/Water IVPB 250 mls INF PRN Administration TO MAINTAIN MAP > 65 Protocol As Directed Sodium Chloride 1,000 mls @ 70 mls/hr 03/13/20 08:08 03/14/20 12:01 Normal Saline 0.9% IV Not Given .[id number] NICKOLAS Potassium Chloride 40 meq/ 100 mls @ 25 mls/hr 03/14/20 07:45 03/14/20 10:17 Device IVPB 03/15/20 11:44 100 mls 0745 NICKOLAS Administration Latanoprost 0 drop 03/11/20 21:00 03/13/20 21:00 Latanoprost 0.005% Ophth Soln 2.5 Ml Bottle EA EYE 1 drop HS NICKOLAS Administration Levothyroxine Sodium 100 mcg 03/10/20 06:00 03/14/20 05:14 Levothyroxine Sodium 100 Mcg Tab PO 100 mcg 0600 NICKOLAS Administration Methocarbamol 750 mg 03/11/20 15:57 03/14/20 10:22 Methocarbamol 500 Mg Tab PO 750 mg TIDPRN PRN Administration Muscle Spasm Metoprolol Tartrate 25 mg 03/11/20 21:00 03/14/20 10:19 Metoprolol Tartrate 25 Mg Tab PO 25 mg BID NICKOLAS Administration Mometasone Furoate/Formoterol Fumar 2 puff 03/10/20 06:30 03/14/20 07:38 Mometasone 200 Mcg/Formoterol 5 Mcg 120 Puff Inhaler INH 2 puff BID-RT NICKOLAS Administration Pantoprazole Sodium 40 mg 03/14/20 09:00 03/14/20 10:19 Pantoprazole 40 Mg Vial IVP 40 mg DAILY NICKOLAS Administration Polyethylene Glycol 17 gm 03/10/20 09:00 03/14/20 10:19 Polyethylene Glycol 3350 17 Gm Packet PO 17 gm DAILY NICKOLAS Administration Propofol 1,000 mg 03/12/20 01:00 03/14/20 05:55 Propofol 1,000 Mg/100 Ml Vial IV 04/11/20 01:00 1,000 mg INF PRN Administration TO ACHIEVE GOAL RASS Protocol Sodium Chloride 10 ml 03/11/20 21:00 03/14/20 10:25 Flush - Normal Saline 10 Ml Syringe IVF 10 ml Q12HR NICKOLAS Administration Terazosin HCl 10 mg 03/11/20 21:00 03/13/20 20:55 Terazosin Hcl 5 Mg Cap PO 10 mg HS NICKOLAS Administration Timolol Maleate 1 drop 03/11/20 21:00 03/14/20 10:21 Timolol 0.5% Ophth Soln 5 Ml Bottle EA EYE 1 drop BID NICKOLAS Administration - Exam General Appearance: awake alert Neck: supple Gastrointestinal: soft, non-tender, non-distended Hosp A/P - Plan #1. Acute respiratory failure with hypoxia. He is intubated mechanically ventilated. He is being weaned off. 2. Sepsis. This was present on admission likely from gram-negative bacteria. 3. Enterococcus faecalis UTI. He is appropriately on IV antibiotics. #4. Hypokalemia. This is being replaced. 5. Cardiopulmonary arrest. Patient reportedly had a cardiopulmonary arrest and achieved ROSC. It appears that he had a pulseless electrical activity leading to this cardiac arrest. He has been evaluated by director of physiotherapy services and at this time medical management is recommended.
[2020-03-14] MEDS: Vancomycin HCl 1.25 GM in Sodium Chloride 0.9% 250 ML 250 ML IVPB SCH (21:11)
[2020-03-14] MEDS: Latanoprost 0.005% Ophth Soln 2.5 ml Bottle EA EYE SCH (21:13)
[2020-03-14] MEDS: Terazosin HCl 5 MG CAP PO SCH (21:21)
[2020-03-14] MEDS: Norepinephrine 8 MG in Dextrose 5% in Water 242 ML IVPB PRN (22:39)
[2020-03-15] MEDS: Piperacillin/Tazobactam 3.375 GM in Sodium Chloride 0.9% 100 ML IVPB SCH ×4 (04:30→21:51)
[2020-03-15] MEDS: Vancomycin HCl 1.25 GM in Sodium Chloride 0.9% 250 ML 250 ML IVPB SCH ×3 (04:30→20:00)
[2020-03-15 05:20] LABS: Anion Gap 11 mmol/L (10-20); BUN (Urea Nitrogen) 4 mg/dL (8.4-25.7); Calc. Creatinine Clearance 159 mL/min (70-130); Calcium 6.4 mg/dL (7.8-10.44); Carbon Dioxide 26 mmol/L (23-31); Chloride 103 mmol/L (98-107); Glucose 187 mg/dL (80-115); Potassium 3.7 mmol/L (3.5-5.1); Sodium 136 mmol/L (136-145)
[2020-03-15 06:07] LABS: Mean Corpuscular HGB CONC 33.1 g/dL (32.0-36.0); Mean Corpuscular Hemoglobin 36.9 pg (27.0-31.0); Mean Platelet Volume 9.2 fL (7.4-10.4); Platelet Count 109 thou/uL (130-400); RBC Distribution Width 13.3 % (11.5-14.5); Red Blood Cell (RBC) Count 2.45 mill/uL (4.70-6.10)
[2020-03-15 06:08] LABS: Band 11 % (5-11); Eosinophils 3 % (0-10); Lymphocytes 13 % (21-51); MDiff Complete? YES; Macrocytosis SLIGHT = 6-15 cells (100X) (0-5/hpf); Monocytes 10 % (0-10); Neutrophil 63 % (42-75); Platelet Morphology Comment Appears Decreased
[2020-03-15] MEDS: Propofol 1,000 MG/100 ML VIAL IV PRN (06:20)
[2020-03-15] MEDS: Levothyroxine Sodium 100 MCG TAB PO SCH (07:21)
[2020-03-15] MEDS: Mometasone 200 MCG/Formoterol 5 MCG 120 PUFF INHALER INH SCH ×2 (07:48→19:32)
[2020-03-15 08:00] LABS: Actual Bicarbonate (HCO3a) 28.2 mEq/L (22-28); Base Excess (BEa) 4.2 mEq/L (-2.0 to +3.0); CO2 Tension 39.5 mmHg (35.0-45.0); Calcium, Ionized (arterial) 1.06 mmol/L (1.12-1.30); Carboxyhemoglobin (COHb) 1.8 gm% (0.0-3.0); Hemoglobin (Hb) 9.7 g/dL (14.0-18.0); O2 Tension (PaO2), arterial 71.9 mmHg (> 80.0); Potassium - ABG Lab 3.39 mmol/L (3.70-5.30); pH, Arterial 7.47 (7.35-7.45)
[2020-03-15] MEDS: Polyethylene Glycol 3350 17 GM Packet PO SCH (08:00)
[2020-03-15] MEDS: Gabapentin 300 MG CAP PO SCH ×3 (08:00→20:02)
[2020-03-15] MEDS: carBAMazepine 200 MG TAB PO SCH ×2 (08:00→20:01)
[2020-03-15] MEDS: Docusate 100 MG CAP PO SCH ×2 (08:00→20:02)
[2020-03-15] MEDS: Metoprolol Tartrate 25 MG TAB PO SCH (08:00)
[2020-03-15] MEDS: Pantoprazole 40 MG VIAL IVP SCH (08:00)
[2020-03-15] MEDS: Carbidopa/Levodopa 10-100 mg Tablet PO SCH ×3 (08:01→20:01)
[2020-03-15] MEDS: Methocarbamol 500 MG TAB PO PRN (08:01)
[2020-03-15] MEDS: Timolol 0.5% Ophth Soln 5 ml Bottle EA EYE SCH ×2 (08:03→20:03)
[2020-03-15 08:08] LABS: Puncture Site RRA
[2020-03-15 08:09] LABS: ALV-art Gradient 199.575 mmHg (0-20)
--- NOTE | 2020-03-15 08:20 | PRG ---
DATE OF SERVICE: 03/15/2020 35 minutes of critical care time. SUBJECTIVE: The patient remains intubated on mechanical ventilation. He will wake up for me. He follows some commands by squeezing his hand. He appears to try to answer questions by nodding and shaking his head, although I am not sure his answers are appropriate. PHYSICAL EXAMINATION: VITAL SIGNS: Temperature is 98.3, pulse 73, blood pressure 117/65, O2 saturation 99%. He is currently on a Levophed drip at 2.5 mcg/minute. Total intake for the last 24 hours was 4831, output 2030. HEENT: Unremarkable except for being intubated. NECK: No JVD. LUNGS: He has mild end-expiratory wheeze on the right. CARDIOVASCULAR: S1 and S2. Regular. ABDOMEN: Soft and nontender to palpation. EXTREMITIES: No clubbing or cyanosis. Extensive old burn coelho throughout. LABORATORY DATA: White blood cell count was 7, hematocrit 27.2, and platelet count 109. ABG result pending. Sodium 136, potassium 3.7, chloride 103, CO2 of 26, BUN 4, creatinine 0.4, glucose 187. IMAGING STUDIES: Chest x-ray demonstrates chronic interstitial changes. I do not see anything new. ASSESSMENT: 1. Acute respiratory failure, requiring mechanical ventilation. 2. Status post cardiopulmonary arrest with pulseless electrical activity. 3. Aspiration pneumonia. 4. Infected decubitus ulcer. PLAN: 1. Spontaneous breathing trial. 2. Continue antibiotic coverage with piperacillin and vancomycin. 3. Hold beta hemalatha given his blood pressure has been low. 4. Hold terazosin for the same reason. 5. Hopefully work towards extubation. Job ID: [id number]
--- NOTE | 2020-03-15 08:49 | RAD ---
PORTABLE CHEST: COMPARISON: Prior day's study. HISTORY: Respiratory failure. FINDINGS: Endotracheal and NG tubes remain in satisfactory position. Heart size is borderline. Pulmonary vess els remain engorged. Diffuse parenchymal lung changes appear stable as compared to the previous exam . There may be some slight decrease in the pleural effusions with less pronounced opacification in t he lung bases. IMPRESSION: 1. Fairly stable chest. There is probably some reduction of pleural effusion since the prior exam. Parenchymal lung changes are fairly similar. POS: SUDARSHAN
[2020-03-15] MEDS: Potassium Chloride 40 MEQ in Premix Bag 1 BAG IVPB SCH (09:09)
--- NOTE | 2020-03-15 15:27 | PDOC.HOSPP ---
- Subjective Encounter Date: 03/15/20 Encounter Time: 15:18 Subjective: Patient remains intubated but sedation has been turned off. He is awake and follows commands. Pulmonary working on extubation. The patient is being treated for cellulitis involving his lower back. His culture grew out Enterococcus faecalis from the urine. - Objective Vital Signs & Weight: Vital Signs (12 hours) Temp Pulse Resp BP Pulse Ox 03/15/20 14:00 21 H 03/15/20 12:00 97.9 F 22 H 03/15/20 11:02 100 123/73 03/15/20 10:00 21 H 03/15/20 08:03 80 133/76 03/15/20 08:00 22 H 98 03/15/20 07:49 85 125/78 03/15/20 07:00 98.0 F 03/15/20 06:00 18 03/15/20 04:00 98.3 F 17 Weight Admit Weight 146 lb 14.4 oz Weight 150 lb 5.684 oz Most Recent Monitor Data Heart Rate from ECG 90 NIBP 129/72 NIBP BP-Mean 91 Respiration from ECG 19 SpO2 96 I&O: 03/14/20 03/15/20 03/16/20 06:59 06:59 06:59 Intake Total 1872.1 4831.1 209.6 Output Total 3125 2030 480 Balance -1252.9 2801.1 -270.4 Result Diagrams: 03/15/20 04:40 03/15/20 04:40 Additional Labs: Accuchecks 03/15/20 00:40 POC Glucose 149 H Radiology Reviewed by me: Yes EKG Reviewed by me: Yes Hospitalist ROS - Review of Systems Constitutional: reports: weakness Cardiovascular: reports: chest pain Gastrointestinal: reports: nausea Neurological: reports: numbness All other systems reviewed; all pertinent +/- noted in HPI/Subj - Medication Medications: Active Medications Generic Name Dose Route Start Last Admin Trade Name Freq PRN Reason Stop Dose Admin Carbamazepine 200 mg 03/10/20 09:00 03/15/20 08:00 Carbamazepine 200 Mg Tab PO 200 mg BID NICKOLAS Administration Carbidopa/Levodopa 1 tab 03/10/20 09:00 03/15/20 08:01 Carbidopa/Levodopa 10-100 Mg Tablet PO 1 tab TID NICKOLAS Administration Docusate Sodium 100 mg 03/10/20 09:00 03/15/20 08:00 Docusate 100 Mg Cap PO 100 mg BID NICKOLAS Administration Gabapentin 300 mg 03/13/20 15:00 03/15/20 08:00 Gabapentin 300 Mg Cap PO 300 mg TID NICKOLAS Administration Piperacillin Sod/Tazobactam 100 mls @ 200 mls/hr 03/10/20 03:00 03/15/20 07:59 Sod 3.375 gm/ Sodium Chloride IVPB 100 mls 0300,0900,1500,2100 NICKOLAS Administration Fentanyl Citrate 2,000 mcg/ 100 mls @ 0 mls/hr 03/12/20 01:00 03/13/20 16:19 Sodium Chloride IV 04/11/20 01:00 100 mls INF NICKOLAS Administration Protocol Per Protocol Norepinephrine Bitartrate 8 mg 250 mls @ 0 mls/hr 03/12/20 03:00 03/14/20 22:39 / Dextrose/Water IVPB 250 mls INF PRN Administration TO MAINTAIN MAP > 65 Protocol As Directed Sodium Chloride 1,000 mls @ 70 mls/hr 03/13/20 08:08 03/14/20 23:17 Normal Saline 0.9% IV 1,000 mls .[id number] NICKOLAS Administration Vancomycin HCl 1.25 gm/ Sodium 250 mls @ 166.667 mls/hr 03/14/20 20:00 03/15/20 11:50 Chloride IVPB 250 mls 0400,1200,2000 NICKOLAS Administration Latanoprost 0 drop 03/11/20 21:00 03/14/20 21:13 Latanoprost 0.005% Ophth Soln 2.5 Ml Bottle EA EYE 1 drop HS NICKOLAS Administration Levothyroxine Sodium 100 mcg 03/10/20 06:00 03/15/20 07:21 Levothyroxine Sodium 100 Mcg Tab PO 100 mcg 0600 NICKOLAS Administration Methocarbamol 750 mg 03/11/20 15:57 03/15/20 08:01 Methocarbamol 500 Mg Tab PO 750 mg TIDPRN PRN Administration Muscle Spasm Mometasone Furoate/Formoterol Fumar 2 puff 03/10/20 06:30 03/15/20 07:48 Mometasone 200 Mcg/Formoterol 5 Mcg 120 Puff Inhaler INH 2 puff BID-RT NICKOLAS Administration Pantoprazole Sodium 40 mg 03/14/20 09:00 03/15/20 08:00 Pantoprazole 40 Mg Vial IVP 40 mg DAILY NICKOLAS Administration Polyethylene Glycol 17 gm 03/10/20 09:00 03/15/20 08:00 Polyethylene Glycol 3350 17 Gm Packet PO 17 gm DAILY NICKOLAS Administration Propofol 1,000 mg 03/12/20 01:00 03/15/20 06:20 Propofol 1,000 Mg/100 Ml Vial IV 04/11/20 01:00 1,000 mg INF PRN Administration TO ACHIEVE GOAL RASS Protocol Sodium Chloride 10 ml 03/11/20 21:00 03/15/20 08:02 Flush - Normal Saline 10 Ml Syringe IVF 10 ml Q12HR NICKOLAS Administration Timolol Maleate 1 drop 03/11/20 21:00 03/15/20 08:03 Timolol 0.5% Ophth Soln 5 Ml Bottle EA EYE 1 drop BID NICKOLAS Administration - Exam General Appearance: awake alert Eye: PERRL ENT: normocephalic atraumatic Neck: supple, symmetric Gastrointestinal: soft, normal bowel sounds Neurological: cranial nerve grossly intact Psychiatric: normal affect, normal behavior, A&O x 3 Hosp A/P - Plan #1. Acute respiratory failure with hypoxia. He is intubated mechanically ventilated. He is being weaned off. 2. Sepsis. This was present on admission likely from gram-negative bacteria. 3. Enterococcus faecalis UTI. He is appropriately on IV antibiotics. #4. Hypokalemia. This is being replaced. 5. Cardiopulmonary arrest. Patient reportedly had a cardiopulmonary arrest and achieved ROSC. It appears that he had a pulseless electrical activity leading to this cardiac arrest. He has been evaluated by protective services officer and at this time medical management is recommended.
[2020-03-15] MEDS: Sodium Chloride 0.9% 1,000 ML IV SCH ×2 (15:36→17:55)
[2020-03-15 19:47] LABS: Vancomycin, Trough 17.5 ug/mL
[2020-03-15] MEDS: Latanoprost 0.005% Ophth Soln 2.5 ml Bottle EA EYE SCH (20:02)
[2020-03-16] MEDS: Piperacillin/Tazobactam 3.375 GM in Sodium Chloride 0.9% 100 ML IVPB SCH ×4 (03:38→20:22)
[2020-03-16 04:44] LABS: Anion Gap 9 mmol/L (10-20); BUN (Urea Nitrogen) 6 mg/dL (8.4-25.7); Calc. Creatinine Clearance 155 mL/min (70-130); Calcium 6.6 mg/dL (7.8-10.44); Carbon Dioxide 29 mmol/L (23-31); Chloride 103 mmol/L (98-107); Glucose 127 mg/dL (80-115); Sodium 138 mmol/L (136-145)
[2020-03-16 04:49] LABS: Potassium 2.9 mmol/L (3.5-5.1)
[2020-03-16 05:07] LABS: Band 6 % (5-11); Hemoglobin 8.6 g/dL (14.0-18.0); Lymphocytes 8 % (21-51); MDiff Complete? YES; Macrocytosis SLIGHT = 6-15 cells (100X) (0-5/hpf); Mean Corpuscular HGB CONC 32.7 g/dL (32.0-36.0); Mean Corpuscular Hemoglobin 35.7 pg (27.0-31.0); Mean Platelet Volume 8.8 fL (7.4-10.4); Monocytes 14 % (0-10); Myelocyte 2 % (0-0); Neutrophil 70 % (42-75); Platelet Count 125 thou/uL (130-400); RBC Distribution Width 13.3 % (11.5-14.5); White Blood Cell (WBC) Count 7.5 thou/uL (4.8-10.8)
[2020-03-16] MEDS: Vancomycin HCl 1.25 GM in Sodium Chloride 0.9% 250 ML 250 ML IVPB SCH (05:07)
[2020-03-16] MEDS ORDERED: Potassium Chloride 40 MEQ in Sodium Chloride 0.9% 250 ML 250 ML IVPB SCH ×2 (06:00→15:45)
[2020-03-16] MEDS: Levothyroxine Sodium 100 MCG TAB PO SCH (06:20)
[2020-03-16] MEDS ORDERED: DC Sedation Protocol FS ONE (07:12)
[2020-03-16] MEDS: Mometasone 200 MCG/Formoterol 5 MCG 120 PUFF INHALER INH SCH ×2 (07:26→18:58)
--- NOTE | 2020-03-16 07:41 | PRG ---
DATE OF SERVICE: 03/16/2020 35 minutes of critical care time. SUBJECTIVE: The patient remains intubated on mechanical ventilation. He will wake up and follow commands. He has been on CPAP all day. OBJECTIVE: VITAL SIGNS: Temperature 99.7, pulse 97, blood pressure 146/81, O2 saturation 98%. Total intake 2298, output 1785. HEENT: Unremarkable. NECK: No JVD. LUNGS: Fairly clear anteriorly. CARDIOVASCULAR: S1, S2. Regular. ABDOMEN: Soft. EXTREMITIES: No edema. LABORATORY DATA: Sodium 138, potassium 2.9, chloride 103, CO2 of 29, BUN 6, creatinine 0.4, glucose 127. White blood cell count 7.5, hematocrit 26.2, and platelet count 125. ABG is pending. His x-ray is about the same. ASSESSMENT: 1. Acute respiratory failure requiring mechanical ventilation. 2. Status post cardiopulmonary arrest with pulseless electrical activity with successful resuscitation. 3. Aspiration pneumonia. 4. Infected decubitus ulcer. PLAN: 1. Extubate. 2. Discontinue vancomycin. 3. Clear liquid diet. 4. Initiate physical therapy. Job ID: [id number]
--- NOTE | 2020-03-16 08:09 | RAD ---
Portable frontal chest radiograph: 03/16/2020 COMPARISON: 03/15/2020 HISTORY: Pneumonia FINDINGS: Stable endotracheal tube and nasogastric tube. There is pulmonary vascular prominence with stable perihilar and bibasilar interstitial opacity. Superimposed airspace disease is noted within the lung bases, right greater than left. There is slight blunting of the left costophrenic angle. The re are incompletely assessed left-sided rib fractures in the inferior lateral left lung base. IMPRESSION: No significant interval change.
[2020-03-16] MEDS: Pantoprazole 40 MG VIAL IVP SCH (09:40)
[2020-03-16] MEDS: Gabapentin 300 MG CAP PO SCH ×3 (09:40→20:21)
[2020-03-16] MEDS: carBAMazepine 200 MG TAB PO SCH ×2 (09:41→20:21)
[2020-03-16] MEDS: Carbidopa/Levodopa 10-100 mg Tablet PO SCH ×3 (09:49→20:21)
[2020-03-16] MEDS: Timolol 0.5% Ophth Soln 5 ml Bottle EA EYE SCH ×2 (09:52→20:23)
[2020-03-16] MEDS: Docusate 100 MG CAP PO SCH ×2 (09:56→20:18)
[2020-03-16] MEDS: Polyethylene Glycol 3350 17 GM Packet PO SCH (09:57)
[2020-03-16] MEDS ORDERED: Potassium Chloride 40 MEQ in Premix Bag 1 BAG IVPB SCH (10:00)
--- NOTE | 2020-03-16 14:36 | PRG ---
DATE OF SERVICE: 03/16/2020 SUBJECTIVE: Mr. Delcid is doing well. He has been extubated. He is answering questions appropriately yes and no. He does appear weak. OBJECTIVE: VITAL SIGNS: Blood pressure 151/87, pulse 95, temperature afebrile. LUNGS: Rhonchi and rales bilaterally. HEART: Regular rate and rhythm. ABDOMEN: Soft, nontender, nondistended. EXTREMITIES: No edema. LABORATORY DATA: Hemoglobin 8.6. Creatinine 0.44, potassium 2.9. IMPRESSION: 1. Recent cardiopulmonary arrest. 2. PEA. 3. Decubitus ulcer. 4. Aspiration pneumonia. RECOMMENDATIONS: The most likely cause of patient's recent demise was aspiration pneumonia. There are no significant dysrhythmias present during the episode other than PEA. His pacemaker was interrogated and confirmed the above. At this point, I recommend to continue conservative treatment. His CK-troponin has been negative. He did have a mildly enlarged right ventricle that has previously been noted. Continue antibiotic therapy. Job ID: [id number]
[2020-03-16 15:19] LABS: Potassium 3.5 mmol/L (3.5-5.1)
[2020-03-16] MEDS ORDERED: Albumin 5% 0 ML ONE (15:48)
[2020-03-16] MEDS ORDERED: Albumin 25% 0 ML ONE (15:50)
[2020-03-16] MEDS: Potassium Chloride 40 MEQ in Premix Bag 1 BAG IVPB SCH (15:53)
--- NOTE | 2020-03-16 16:20 | PDOC.HOSPP ---
- Subjective Encounter Date: 03/16/20 Encounter Time: 16:15 Subjective: Patient is extubated and answering questions appropriately. He is severely debilitated. He can answer yes and no questions. Speech therapist saw him earlier and still recommend n.p.o. with exception of ice chips. Patient is mostly wheelchair/bedbound but we will get PT to help some. We will add potassium to the IV fluids. - Objective Vital Signs & Weight: Vital Signs (12 hours) Temp Pulse Pulse Pulse Resp BP BP 03/16/20 15:36 103 H 97 152/95 H 03/16/20 11:00 98.9 F 03/16/20 09:52 102 H 154/89 H 03/16/20 07:59 03/16/20 07:26 115 H 23 H 03/16/20 07:00 99.5 F 03/16/20 06:00 20 BP Pulse Ox Pulse Ox Pulse Ox 03/16/20 15:36 153/88 H 93 L 96 03/16/20 11:00 03/16/20 09:52 03/16/20 07:59 95 03/16/20 07:26 91 L 03/16/20 07:00 03/16/20 06:00 Weight Admit Weight 146 lb 14.4 oz Weight 150 lb 5.684 oz Most Recent Monitor Data Heart Rate from ECG 95 NIBP 151/87 NIBP BP-Mean 108 Respiration from ECG 22 SpO2 100 I&O: 03/15/20 03/16/20 03/17/20 06:59 06:59 06:59 Intake Total 4831.1 2298.6 500 Output Total 2030 1785 1430 Balance 2801.1 513.6 -930 Result Diagrams: 03/16/20 03:45 03/16/20 14:51 Additional Labs: Accuchecks 03/14/20 07:00 POC Glucose 106 H Radiology Reviewed by me: Yes EKG Reviewed by me: Yes Hospitalist ROS - Review of Systems Constitutional: reports: weakness Gastrointestinal: reports: nausea Musculoskeletal: reports: neck pain Neurological: reports: weakness - Medication Medications: Active Medications Generic Name Dose Route Start Last Admin Trade Name Freq PRN Reason Stop Dose Admin Carbamazepine 200 mg 03/10/20 09:00 03/16/20 09:41 Carbamazepine 200 Mg Tab PO 200 mg BID NICKOLAS Administration Carbidopa/Levodopa 1 tab 03/10/20 09:00 03/16/20 15:54 Carbidopa/Levodopa 10-100 Mg Tablet PO 1 tab TID NICKOLAS Administration Docusate Sodium 100 mg 03/10/20 09:00 03/16/20 09:56 Docusate 100 Mg Cap PO 100 mg BID NICKOLAS Administration Gabapentin 300 mg 03/13/20 15:00 03/16/20 15:27 Gabapentin 300 Mg Cap PO 300 mg TID NICKOLAS Administration Piperacillin Sod/Tazobactam 100 mls @ 200 mls/hr 03/10/20 03:00 03/16/20 15:28 Sod 3.375 gm/ Sodium Chloride IVPB 100 mls 0300,0900,1500,2100 NICKOLAS Administration Sodium Chloride 1,000 mls @ 70 mls/hr 03/13/20 08:08 03/15/20 17:55 Normal Saline 0.9% IV 1,000 mls .[id number] NICKOLAS Administration Potassium Chloride 40 meq/ 270 mls @ 135 mls/hr 03/16/20 15:45 03/16/20 15:54 Sodium Chloride IVPB 03/16/20 17:44 Not Given NOW NICKOLAS Latanoprost 0 drop 03/11/20 21:00 03/15/20 20:02 Latanoprost 0.005% Ophth Soln 2.5 Ml Bottle EA EYE 1 drop HS NICKOLAS Administration Levothyroxine Sodium 100 mcg 03/10/20 06:00 03/16/20 06:20 Levothyroxine Sodium 100 Mcg Tab PO 100 mcg 0600 NICKOLAS Administration Methocarbamol 750 mg 03/11/20 15:57 03/15/20 08:01 Methocarbamol 500 Mg Tab PO 750 mg TIDPRN PRN Administration Muscle Spasm Mometasone Furoate/Formoterol Fumar 2 puff 03/10/20 06:30 03/16/20 07:26 Mometasone 200 Mcg/Formoterol 5 Mcg 120 Puff Inhaler INH 2 puff BID-RT NICKOLAS Administration Pantoprazole Sodium 40 mg 03/14/20 09:00 03/16/20 09:40 Pantoprazole 40 Mg Vial IVP 40 mg DAILY NICKOLAS Administration Polyethylene Glycol 17 gm 03/10/20 09:00 03/16/20 09:57 Polyethylene Glycol 3350 17 Gm Packet PO Not Given DAILY NICKOLAS Sodium Chloride 10 ml 03/11/20 21:00 03/16/20 09:51 Flush - Normal Saline 10 Ml Syringe IVF 10 ml Q12HR NICKOLAS Administration Timolol Maleate 1 drop 03/11/20 21:00 03/16/20 09:52 Timolol 0.5% Ophth Soln 5 Ml Bottle EA EYE 1 drop BID NICKOLAS Administration - Exam General Appearance: NAD, awake alert, ill appearing Eye: PERRL ENT: normocephalic atraumatic, no oropharyngeal lesions Neck: supple, symmetric, no JVD Heart: RRR, no murmur, no gallops Respiratory: CTAB, no wheezes, no rales, no ronchi Gastrointestinal: soft Neurological: cranial nerve grossly intact Musculoskeletal: normal tone, generalized weakness Psychiatric: normal affect, oriented to person Hosp A/P (1) COPD (chronic obstructive pulmonary disease) Status: Chronic Qualifiers: COPD type: unspecified COPD Qualified Code(s): J44.9 - Chronic obstructive pulmonary disease, unspecified (2) Chronic pain syndrome Code(s): G89.4 - CHRONIC PAIN SYNDROME Status: Chronic (3) Hypothyroidism Code(s): E03.9 - HYPOTHYROIDISM, UNSPECIFIED Status: Chronic Qualifiers: Hypothyroidism type: unspecified Qualified Code(s): E03.9 - Hypothyroidism, unspecified (4) Neuropathy Code(s): G62.9 - POLYNEUROPATHY, UNSPECIFIED Status: Chronic (5) Cellulitis of lower back Code(s): L03.312 - CELLULITIS OF BACK [ANY PART EXCEPT BUTTOCK] Status: Acute Plan: He is appropriately on IV antibiotics which we will continue. (6) Stage II pressure ulcer of sacral region Code(s): L89.152 - PRESSURE ULCER OF SACRAL REGION, STAGE 2 Status: Acute Plan: Continue wound care. This was present on admission. - Plan continue antibiotics, PT/OT, home health care social worker, speech therapy, incentive spirometry, DVT proph w/lovenox #1. Acute respiratory failure with hypoxia. He is intubated mechanically ventilated. He is being weaned off. 2. Sepsis. This was present on admission likely from gram-negative bacteria. 03/16/2020. Sepsis has since resolved. 3. Enterococcus faecalis UTI. He is appropriately on IV antibiotics. 03/16/2020. Continue antibiotic therapy. #4. Hypokalemia. This is being replaced. 5. Cardiopulmonary arrest. Patient reportedly had a cardiopulmonary arrest and achieved ROSC. It appears that he had a pulseless electrical activity leading to this cardiac arrest. He has been evaluated by fingerprint expert and at this time medical management is recommended. 6. Cellulitis of lower back. Antibiotic as above. 7. Stage II sacral pressure ulcers. Continue wound care therapy.
[2020-03-16] MEDS: NS 0.9% w/ 20 MEQ KCL 1,000 ML IV SCH (17:00)
[2020-03-16 20:19] LABS: Potassium 3.8 mmol/L (3.5-5.1)
[2020-03-16] MEDS: Latanoprost 0.005% Ophth Soln 2.5 ml Bottle EA EYE SCH (20:21)
[2020-03-17] MEDS ORDERED: HYDROcodone/Acetaminophen 5/325 mg Tablet PO SCH (02:45)
[2020-03-17] MEDS: Piperacillin/Tazobactam 3.375 GM in Sodium Chloride 0.9% 100 ML IVPB SCH ×4 (03:22→20:41)
[2020-03-17 04:54] LABS: Phosphorus 3.3 mg/dL (2.3-4.7)
[2020-03-17 05:00] LABS: Anion Gap 12 mmol/L (10-20); BUN (Urea Nitrogen) 5 mg/dL (8.4-25.7); Calc. Creatinine Clearance 142 mL/min (70-130); Calcium 7.3 mg/dL (7.8-10.44); Carbon Dioxide 30 mmol/L (23-31); Chloride 105 mmol/L (98-107); Glucose 73 mg/dL (80-115); Magnesium 1.5 mg/dL (1.6-2.6); Potassium 3.8 mmol/L (3.5-5.1); Sodium 143 mmol/L (136-145)
[2020-03-17] MEDS ORDERED: Magnesium 2 GM/50 ML 2 GM in Premix Bag 1 BAG IVPB SCH (05:30)
[2020-03-17 05:51] LABS: Band 12 % (5-11); Lymphocytes 11 % (21-51); MDiff Complete? YES; Mean Corpuscular HGB CONC 32.1 g/dL (32.0-36.0); Mean Corpuscular Hemoglobin 35.4 pg (27.0-31.0); Monocytes 14 % (0-10); Myelocyte 1 % (0-0); Neutrophil 62 % (42-75); Platelet Count 172 thou/uL (130-400); RBC Distribution Width 13.5 % (11.5-14.5); Red Blood Cell (RBC) Count 2.55 mill/uL (4.70-6.10); White Blood Cell (WBC) Count 8.9 thou/uL (4.8-10.8)
[2020-03-17] MEDS: Levothyroxine Sodium 100 MCG TAB PO SCH (06:02)
--- NOTE | 2020-03-17 08:00 | PRG ---
DATE OF SERVICE: 03/17/2020 The patient was successfully extubated yesterday. He is complaining of chest pain where they performed CPR. OBJECTIVE: VITAL SIGNS: Temperature 99.2, pulse 85, blood pressure 142/83, O2 saturation 100%. 24-hour intake 2957, output 5715. HEENT: Unremarkable. NECK: Old tracheostomy scar noted. LUNGS: Clear, has some crepitus noises along his rib cage where he has fractured ribs from CPR. ABDOMEN: Soft and nontender. EXTREMITIES: No clubbing, cyanosis, edema. LABORATORY DATA: White count 8.9, hematocrit 28.1, and platelet count 172. Sodium 143, potassium 3.8, chloride 105, CO2 of 30, BUN 5, creatinine 0.4, glucose 73. ASSESSMENT: 1. Status post pulseless electrical activity arrest of unknown cause. 2. Status post acute respiratory failure requiring mechanical ventilation. 3. Aspiration pneumonia. 4. Infected decubitus ulcer. PLAN: 1. He can transfer to telemetry for further cardiac monitoring. Finish out antibiotics today - that we gave him 7 days. 2. Advance diet. 3. Initiate physical therapy. Job ID: [id number]
[2020-03-17] MEDS: Mometasone 200 MCG/Formoterol 5 MCG 120 PUFF INHALER INH SCH ×2 (08:05→19:24)
[2020-03-17] MEDS: NS 0.9% w/ 20 MEQ KCL 1,000 ML IV SCH (08:55)
[2020-03-17] MEDS: Carbidopa/Levodopa 10-100 mg Tablet PO SCH ×3 (09:40→20:41)
[2020-03-17] MEDS: carBAMazepine 200 MG TAB PO SCH ×2 (09:40→20:42)
[2020-03-17] MEDS: Docusate 100 MG CAP PO SCH ×2 (09:41→20:42)
[2020-03-17] MEDS: Gabapentin 300 MG CAP PO SCH ×3 (09:41→20:41)
[2020-03-17] MEDS: Polyethylene Glycol 3350 17 GM Packet PO SCH (09:42)
[2020-03-17] MEDS: Timolol 0.5% Ophth Soln 5 ml Bottle EA EYE SCH ×2 (09:43→20:43)
--- NOTE | 2020-03-17 13:47 | CON ---
DATE OF CONSULTATION: SUBJECTIVE: Mr. Delcid is doing much better. He has been extubated. He is conversing normally. He has no current complaints. OBJECTIVE: VITAL SIGNS: Blood pressure 146/93, pulse 98, temperature afebrile. LUNGS: Rhonchi and rales bilaterally. HEART: Regular rate and rhythm. ABDOMEN: Soft, nontender, nondistended. EXTREMITIES: No edema. LABORATORY DATA: Hemoglobin 9.0, creatinine 0.48. IMPRESSION: 1. Pulseless electrical activity arrest. 2. Status post pacemaker. 3. Decubitus ulcer. RECOMMENDATIONS: Mr. Delcid is doing very well. Continue to monitor closely. His LVEF is within normal limits. He had a recent stress study that was also within normal limits. We continue to monitor closely. Job ID: [id number]
--- NOTE | 2020-03-17 17:01 | PDOC.HOSPP ---
- Subjective Encounter Date: 03/17/20 Encounter Time: 17:00 Subjective: He remains extubated today. He is communicating well. His diet has been advanced and he seems to be tolerating it. He did tell me that he is wheelchair bound. We will plan for him to discharge hopefully within the next 48 hours. - Objective Vital Signs & Weight: Vital Signs (12 hours) Temp Pulse Pulse Pulse Resp BP BP 03/17/20 15:32 97.5 F L 102 H 20 03/17/20 11:00 98.2 F 03/17/20 10:44 95 99 142/80 H 03/17/20 09:43 106 H 142/87 H 03/17/20 08:00 03/17/20 07:00 98.3 F BP BP Pulse Ox Pulse Ox Pulse Ox 03/17/20 15:32 153/80 H 96 03/17/20 11:00 03/17/20 10:44 158/101 H 95 96 03/17/20 09:43 03/17/20 08:00 98 03/17/20 07:00 Weight Admit Weight 146 lb 14.4 oz Weight 150 lb 5.684 oz Most Recent Monitor Data Heart Rate from ECG 110 NIBP 143/91 NIBP BP-Mean 108 Respiration from ECG 18 SpO2 100 I&O: 03/16/20 03/17/20 03/18/20 06:59 06:59 06:59 Intake Total 2298.6 2957 1000 Output Total 1785 5715 2070 Balance 513.6 -2758 -1070 Result Diagrams: 03/17/20 03:28 03/17/20 03:28 Radiology Reviewed by me: Yes EKG Reviewed by me: Yes Hospitalist ROS - Review of Systems Constitutional: reports: weakness, malaise Respiratory: reports: shortness of breath, SOB with excertion Gastrointestinal: reports: nausea Neurological: reports: weakness - Medication Medications: Active Medications Generic Name Dose Route Start Last Admin Trade Name Freq PRN Reason Stop Dose Admin Carbamazepine 200 mg 03/10/20 09:00 03/17/20 09:40 Carbamazepine 200 Mg Tab PO 200 mg BID NICKOLAS Administration Carbidopa/Levodopa 1 tab 03/10/20 09:00 03/17/20 14:21 Carbidopa/Levodopa 10-100 Mg Tablet PO 1 tab TID NICKOLAS Administration Docusate Sodium 100 mg 03/10/20 09:00 03/17/20 09:41 Docusate 100 Mg Cap PO Not Given BID NICKOLAS Gabapentin 300 mg 03/13/20 15:00 03/17/20 14:20 Gabapentin 300 Mg Cap PO 300 mg TID NICKOLAS Administration Piperacillin Sod/Tazobactam 100 mls @ 200 mls/hr 03/10/20 03:00 03/17/20 14:21 Sod 3.375 gm/ Sodium Chloride IVPB 100 mls 0300,0900,1500,2100 NICKOLAS Administration Latanoprost 0 drop 03/11/20 21:00 03/16/20 20:21 Latanoprost 0.005% Ophth Soln 2.5 Ml Bottle EA EYE 1 drop HS NICKOLAS Administration Levothyroxine Sodium 100 mcg 03/10/20 06:00 03/17/20 06:02 Levothyroxine Sodium 100 Mcg Tab PO 100 mcg 0600 NICKOLAS Administration Methocarbamol 750 mg 03/11/20 15:57 03/15/20 08:01 Methocarbamol 500 Mg Tab PO 750 mg TIDPRN PRN Administration Muscle Spasm Mometasone Furoate/Formoterol Fumar 2 puff 03/10/20 06:30 03/17/20 08:05 Mometasone 200 Mcg/Formoterol 5 Mcg 120 Puff Inhaler INH 2 puff BID-RT NICKOLAS Administration Pantoprazole Sodium 40 mg 03/17/20 09:00 03/17/20 09:41 Pantoprazole 40 Mg Tab PO 40 mg DAILY NICKOLAS Administration Polyethylene Glycol 17 gm 03/10/20 09:00 03/17/20 09:42 Polyethylene Glycol 3350 17 Gm Packet PO Not Given DAILY NICKOLAS Sodium Chloride 10 ml 03/11/20 21:00 03/17/20 09:42 Flush - Normal Saline 10 Ml Syringe IVF 10 ml Q12HR NICKOLAS Administration Timolol Maleate 1 drop 03/11/20 21:00 03/17/20 09:43 Timolol 0.5% Ophth Soln 5 Ml Bottle EA EYE 1 drop BID NICKOLAS Administration - Exam General Appearance: awake alert, ill appearing Eye: PERRL, anicteric sclera ENT: normocephalic atraumatic, no oropharyngeal lesions, dry oral mucosa Neck: supple, symmetric Heart: RRR, no murmur Respiratory: CTAB, no wheezes, no rales, no ronchi Gastrointestinal: soft, non-tender, non-distended Neurological: cranial nerve grossly intact Musculoskeletal: normal tone, normal strength Psychiatric: normal affect, normal behavior, A&O x 3 Hosp A/P (1) COPD (chronic obstructive pulmonary disease) Status: Chronic Qualifiers: COPD type: unspecified COPD Qualified Code(s): J44.9 - Chronic obstructive pulmonary disease, unspecified (2) Chronic pain syndrome Code(s): G89.4 - CHRONIC PAIN SYNDROME Status: Chronic (3) Hypothyroidism Code(s): E03.9 - HYPOTHYROIDISM, UNSPECIFIED Status: Chronic Qualifiers: Hypothyroidism type: unspecified Qualified Code(s): E03.9 - Hypothyroidism, unspecified (4) Neuropathy Code(s): G62.9 - POLYNEUROPATHY, UNSPECIFIED Status: Chronic (5) Cellulitis of lower back Code(s): L03.312 - CELLULITIS OF BACK [ANY PART EXCEPT BUTTOCK] Status: Acute (6) Stage II pressure ulcer of sacral region Code(s): L89.152 - PRESSURE ULCER OF SACRAL REGION, STAGE 2 Status: Acute - Plan PT/OT, out of bed/ambulate #1. Acute respiratory failure with hypoxia. He is intubated mechanically ventilated. He is being weaned off. 2. Sepsis. This was present on admission likely from gram-negative bacteria. 03/16/2020. Sepsis has since resolved. 3. Enterococcus faecalis UTI. He is appropriately on IV antibiotics. 03/16/2020. Continue antibiotic therapy. #4. Hypokalemia. This is being replaced. 5. Cardiopulmonary arrest. Patient reportedly had a cardiopulmonary arrest and achieved ROSC. It appears that he had a pulseless electrical activity leading to this cardiac arrest. He has been evaluated by chemical laboratory assistant and at this time medical management is recommended. 6. Cellulitis of lower back. Antibiotic as above. 7. Stage II sacral pressure ulcers. Continue wound care therapy.
[2020-03-17] MEDS: Acetaminophen 325 MG TAB PO PRN (20:42)
[2020-03-17] MEDS: Latanoprost 0.005% Ophth Soln 2.5 ml Bottle EA EYE SCH (20:43)
[2020-03-18] MEDS: Acetaminophen 325 MG TAB PO PRN (03:37)
[2020-03-18] MEDS: Piperacillin/Tazobactam 3.375 GM in Sodium Chloride 0.9% 100 ML IVPB SCH ×2 (03:37→08:51)
[2020-03-18] MEDS: Levothyroxine Sodium 100 MCG TAB PO SCH (06:19)
[2020-03-18] MEDS: Mometasone 200 MCG/Formoterol 5 MCG 120 PUFF INHALER INH SCH ×2 (07:19→19:33)
[2020-03-18] MEDS: Docusate 100 MG CAP PO SCH ×2 (08:50→19:24)
[2020-03-18] MEDS: carBAMazepine 200 MG TAB PO SCH ×2 (08:50→19:25)
[2020-03-18] MEDS: Carbidopa/Levodopa 10-100 mg Tablet PO SCH ×3 (08:51→19:24)
[2020-03-18] MEDS: Gabapentin 300 MG CAP PO SCH ×4 (08:51→19:24)
[2020-03-18] MEDS: Polyethylene Glycol 3350 17 GM Packet PO SCH (08:51)
[2020-03-18] MEDS: Timolol 0.5% Ophth Soln 5 ml Bottle EA EYE SCH ×2 (08:52→20:17)
--- NOTE | 2020-03-18 09:21 | RAD ---
Exam: Chest one view HISTORY:Shortness of breath. Comparison: 03/16/2020 FINDINGS: Lines and tubes: Interval removal endotracheal and nasogastric tube. Pacing device: Stable left-sided dual-lead transvenous pacemaker. 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 Pneumothorax: None Osseous abnormalities: Multiple old left rib fractures are noted. IMPRESSION: 1. Interval removal of endotracheal and nasogastric tube. 2. Stable interstitial opacities and pleural effusion. Correlate for congestive heart failure.
[2020-03-18] MEDS ORDERED: Furosemide 40 MG/4 ML VIAL SLOW IVP SCH (10:30)
--- NOTE | 2020-03-18 10:35 | PRG ---
DATE OF SERVICE: 03/18/2020 SUBJECTIVE: The patient is doing better. Had no acute complaints today. PHYSICAL EXAMINATION: VITAL SIGNS: Temperature is 98.4, pulse 96, and O2 saturation 97% on 3 L. HEENT: Unremarkable. NECK: No JVD. LUNGS: Clear posteriorly. CARDIAC: S1 and S2. Regular. ABDOMEN: Soft. EXTREMITIES: Old skin burn changes. DIAGNOSTIC DATA: His x-ray looks fairly clear. No new labs were done today. ASSESSMENT: 1. Status post cardiac arrest/pulseless electrical activity. 2. Aspiration pneumonitis. RECOMMENDATIONS: 1. Finish out his antibiotics - he has had full 7 days as of yesterday. 2. Increase activity. 3. No further pulmonary recommendations at this time. We will sign off the case. Job ID: [id number]
[2020-03-18 12:09] VITALS: BMI 21.9
--- NOTE | 2020-03-18 14:43 | PDOC.HOSPP ---
- Subjective Encounter Date: 03/18/20 Encounter Time: 14:40 Subjective: Patient continues to clinically improve. He is tolerating his diet as well. He denied any pain or discomfort today. He initially planned to go stay with his sister before he returns to his apartment but right now family is unable to take care of him and we will plan to send him to rehab. I will ask our case management to consult rehab. I attempted to call the sister Ms. Stephens at [phone] to update her about plan of care but she did not answer. - Objective Vital Signs & Weight: Vital Signs (12 hours) Temp Pulse Resp BP Pulse Ox 03/18/20 12:00 98.0 F 102 H 18 142/84 H 96 03/18/20 08:52 96 03/18/20 08:00 97.4 F L 100 17 140/78 93 L 03/18/20 04:02 149/86 H 03/18/20 03:32 98.4 F 96 16 170/92 H 97 Weight Admit Weight 146 lb 14.4 oz Weight 140 lb Most Recent Monitor Data Heart Rate from ECG 110 NIBP 143/91 NIBP BP-Mean 108 Respiration from ECG 18 SpO2 100 I&O: 03/17/20 03/18/20 03/19/20 06:59 06:59 06:59 Intake Total 2957 1980 Output Total 5715 3920 [facility] -1648 -3576 Result Diagrams: 03/17/20 03:28 03/17/20 03:28 Radiology Reviewed by me: Yes EKG Reviewed by me: Yes Hospitalist ROS - Review of Systems Constitutional: reports: weakness Respiratory: reports: shortness of breath, SOB with excertion Gastrointestinal: reports: nausea Neurological: reports: weakness - Medication Medications: Active Medications Generic Name Dose Route Start Last Admin Trade Name Freq PRN Reason Stop Dose Admin Acetaminophen 650 mg 03/09/20 22:05 03/18/20 03:37 Acetaminophen 325 Mg Tab PO 650 mg Q4H PRN Administration Headache/Fever/Mild Pain (1-3) Carbamazepine 200 mg 03/10/20 09:00 03/18/20 08:50 Carbamazepine 200 Mg Tab PO 200 mg BID NICKOLAS Administration Carbidopa/Levodopa 1 tab 03/10/20 09:00 03/18/20 14:29 Carbidopa/Levodopa 10-100 Mg Tablet PO 1 tab TID NICKOLAS Administration Docusate Sodium 100 mg 03/10/20 09:00 03/18/20 08:50 Docusate 100 Mg Cap PO 100 mg BID NICKOLAS Administration Gabapentin 900 mg 03/18/20 09:00 03/18/20 14:28 Gabapentin 300 Mg Cap PO 900 mg TID NICKOLAS Administration Latanoprost 0 drop 03/11/20 21:00 03/17/20 20:43 Latanoprost 0.005% Ophth Soln 2.5 Ml Bottle EA EYE 1 drop HS NICKOLAS Administration Levothyroxine Sodium 100 mcg 03/10/20 06:00 03/18/20 06:19 Levothyroxine Sodium 100 Mcg Tab PO 100 mcg 0600 NICKOLAS Administration Methocarbamol 750 mg 03/11/20 15:57 03/15/20 08:01 Methocarbamol 500 Mg Tab PO 750 mg TIDPRN PRN Administration Muscle Spasm Mometasone Furoate/Formoterol Fumar 2 puff 03/10/20 06:30 03/18/20 07:19 Mometasone 200 Mcg/Formoterol 5 Mcg 120 Puff Inhaler INH 2 puff BID-RT NICKOLAS Administration Pantoprazole Sodium 40 mg 03/17/20 09:00 03/18/20 08:51 Pantoprazole 40 Mg Tab PO 40 mg DAILY NICKOLAS Administration Polyethylene Glycol 17 gm 03/10/20 09:00 03/18/20 08:51 Polyethylene Glycol 3350 17 Gm Packet PO 17 gm DAILY NICKOLAS Administration Sodium Chloride 10 ml 03/11/20 21:00 03/18/20 08:51 Flush - Normal Saline 10 Ml Syringe IVF 10 ml Q12HR NICKOLAS Administration Timolol Maleate 1 drop 03/11/20 21:00 03/18/20 08:52 Timolol 0.5% Ophth Soln 5 Ml Bottle EA EYE 1 drop BID NICKOLAS Administration - Exam General Appearance: awake alert, ill appearing Eye: PERRL, anicteric sclera ENT: normocephalic atraumatic, no oropharyngeal lesions Neck: supple, symmetric, no JVD, no thyromegaly, no lymphadenopathy Heart: RRR, no murmur, no gallops, no rubs Respiratory: CTAB, no wheezes, no rales, no ronchi Gastrointestinal: soft, non-tender, non-distended, normal bowel sounds Musculoskeletal: generalized weakness, diffuse muscle atrophy Psychiatric: normal affect, normal behavior, A&O x 3 Hosp A/P (1) COPD (chronic obstructive pulmonary disease) Status: Chronic Qualifiers: COPD type: unspecified COPD Qualified Code(s): J44.9 - Chronic obstructive pulmonary disease, unspecified (2) Chronic pain syndrome Code(s): G89.4 - CHRONIC PAIN SYNDROME Status: Chronic (3) Hypothyroidism Code(s): E03.9 - HYPOTHYROIDISM, UNSPECIFIED Status: Chronic Qualifiers: Hypothyroidism type: unspecified Qualified Code(s): E03.9 - Hypothyroidism, unspecified (4) Neuropathy Code(s): G62.9 - POLYNEUROPATHY, UNSPECIFIED Status: Chronic (5) Cellulitis of lower back Code(s): L03.312 - CELLULITIS OF BACK [ANY PART EXCEPT BUTTOCK] Status: Acute Plan: Continue antibiotic as above. (6) Stage II pressure ulcer of sacral region Code(s): L89.152 - PRESSURE ULCER OF SACRAL REGION, STAGE 2 Status: Acute Plan: Wound care. - Plan old records reviewed/req, plan discussed w/ family, PT/OT, addiction social worker #1. Acute respiratory failure with hypoxia. He is intubated mechanically ventilated. He is being weaned off. 03/18/2020. He has been weaned off of oxygen. 2. Sepsis. This was present on admission likely from gram-negative bacteria. 03/16/2020. Sepsis has since resolved. 3. Enterococcus faecalis UTI. He is appropriately on IV antibiotics. 03/16/2020. Continue antibiotic therapy. #4. Hypokalemia. This is being replaced. 5. Cardiopulmonary arrest. Patient reportedly had a cardiopulmonary arrest and achieved ROSC. It appears that he had a pulseless electrical activity leading to this cardiac arrest. He has been evaluated by dry room attendant and at this time medical management is recommended. 6. Cellulitis of lower back. Antibiotic as above. 7. Stage II sacral pressure ulcers. Continue wound care therapy.
--- NOTE | 2020-03-18 18:07 | PDOC.DS.DS ---
Provider - Provider Date of Admission: 03/09/20 20:39 Date of Discharge: 03/18/20 Admitting Provider: Hernando Collado MD Consultations: Pulmonary Primary Care Physician: Unknown Course - Hospital Course Resuscitation Status: 03/09/20 22:12 Resuscitation Status Routine Resuscitation Status: FULL: Full Resuscitation - Labs Lab Results: 03/17/20 03:28 03/17/20 03:28 Abnormal Lab Results - Last 48 hrs 03/17/20 03:28: BUN 5 L, Creatinine 0.48 L, Calcium 7.3 L, Magnesium 1.5 L 03/17/20 03:28: RBC 2.55 L, Hgb 9.0 L, Hct 28.1 L, MCV 110.0 H, MCH 35.4 H, Band Neuts % (Manual) 12 H, Lymphocytes % (Manual) 11 L, Monocytes % (Manual) 14 H, Myelocytes % 1 H Microbiology - Entire Visit 03/09/20 20:18 Venous blood - Right Arm Blood Culture - Final NO GROWTH IN 5 DAYS 03/09/20 20:00 Venous blood - Right Arm Blood Culture - Final NO GROWTH IN 5 DAYS 03/09/20 19:25 Urine Straight Catheter Urine Culture - Final Enterococcus faecalis - Physical Exam Vitals: Vital Signs (12 hours) Temp Pulse Resp BP Pulse Ox 03/18/20 16:00 98.2 F 110 H 17 144/64 H 98 03/18/20 12:00 98.0 F 102 H 18 142/84 H 96 03/18/20 08:52 96 03/18/20 08:00 97.4 F L 100 17 140/78 93 L Weight Admit Weight 146 lb 14.4 oz Weight 140 lb Most Recent Monitor Data Heart Rate from ECG 110 NIBP 143/91 NIBP BP-Mean 108 Respiration from ECG 18 SpO2 100 Physical Exam: The patient was seen and examined on the day of discharge. Problem - Problem (1) COPD (chronic obstructive pulmonary disease) Status: Chronic Qualifiers: COPD type: unspecified COPD Qualified Code(s): J44.9 - Chronic obstructive pulmonary disease, unspecified (2) Chronic pain syndrome Code(s): G89.4 - CHRONIC PAIN SYNDROME Status: Chronic (3) Hypothyroidism Code(s): E03.9 - HYPOTHYROIDISM, UNSPECIFIED Status: Chronic Qualifiers: Hypothyroidism type: unspecified Qualified Code(s): E03.9 - Hypothyroidism, unspecified (4) Neuropathy Code(s): G62.9 - POLYNEUROPATHY, UNSPECIFIED Status: Chronic (5) Cellulitis of lower back Code(s): L03.312 - CELLULITIS OF BACK [ANY PART EXCEPT BUTTOCK] Status: Acute (6) Stage II pressure ulcer of sacral region Code(s): L89.152 - PRESSURE ULCER OF SACRAL REGION, STAGE 2 Status: Acute Plan - Discharge Medications Prescriptions: Cephalexin [Keflex] 250 mg PO Q6HR #28 cap Home Medications: Medication Instructions Recorded Confirmed Type Albuterol Sulfate [Proair 2 puff IH Q4H PRN 12/29/19 03/10/20 History Digihaler] Budesonide/Formoterol Fumarate 2 puff IH BID 12/29/19 03/10/20 History [Budesonide-Formoterol 160-4.5] Carbidopa/Levodopa 100 mg PO TID 12/29/19 03/10/20 History [Carbidopa-Levodopa 10-100 Tab] Clotrimazole 1% Cream [Lotrimin 1% 1 applic TOP BID PRN 12/29/19 03/10/20 History Cream] Cyanocobalamin (Vitamin B-12) 1,000 mcg IM [id number] 12/29/19 03/10/20 History [Cyanocobalamin Injection] DULoxetine HCl [Cymbalta] 60 mg PO BID 12/29/19 03/10/20 History Docusate [Colace] 100 mg PO BID 12/29/19 03/10/20 History Ferrous Sulfate 325 mg PO DAILY 12/29/19 03/10/20 History Folic Acid 1 mg PO DAILY 12/29/19 03/10/20 History Gabapentin 1,200 mg PO TID 12/29/19 03/10/20 History Hydroxychloroquine Sulfate 200 mg PO BID 12/29/19 03/10/20 History Ipratropium [Atrovent HFA] 2 puff INH Q4H PRN 12/29/19 03/10/20 History Lactulose 10 GM/15ML Oral Cecilia 30 ml PO TID PRN 12/29/19 03/10/20 History [Lactulose] Latanoprost [Latanoprost 0.05% 1 drop EA EYE HS 12/29/19 03/10/20 History Ophth] Levothyroxine Sodium [Synthroid] 100 mcg PO 0600 12/29/19 03/10/20 History Lidocaine [Lidocaine 5% Ointment] 1 applic TOP QID PRN 12/29/19 03/10/20 History Loratadine 10 mg PO DAILY PRN 12/29/19 03/10/20 History Methocarbamol 750 mg PO TID PRN 12/29/19 03/10/20 History Mineral Oil/Petrolatum,White 1 applic EA EYE HS 12/29/19 03/10/20 History [Lubricant Eye Ointment] Omeprazole 20 mg PO BID 12/29/19 03/10/20 History Petrolatum,White [Hydrophor 42% 1 applic TOP ASDIR PRN 12/29/19 03/10/20 History Ointment] Sildenafil Citrate 25 mg PO DAILY PRN 12/29/19 03/10/20 History Simethicone 80 mg PO TID PRN 12/29/19 03/10/20 History Skin Cleanser Comb No.31 1 spray TOP ASDIR 12/29/19 03/10/20 History [Skintegrity Wound Cleanser] Sodium Chloride [Fertile Saline 0.65% 1 spray EA NARE ASDIR PRN 12/29/19 03/10/20 History Drops] Terazosin HCl 10 mg PO HS 12/29/19 03/10/20 History Timolol Maleate [Timoptic 0.5% 1 drop EA EYE BID 12/29/19 03/10/20 History Ophth Soln] Triamcinolone Acetonide 1 applic TOP BID PRN 12/29/19 03/10/20 History [Triamcinolone Acetonide 0.1% Lotion] carBAMazepine [Carbamazepine] 200 mg PO BID 12/29/19 03/10/20 History pyridOXINE [Vitamin B 6] 1 tab PO DAILY 12/29/19 03/10/20 History Metoprolol Tartrate [Lopressor] 25 mg PO BID #60 tab 12/30/19 03/10/20 Rx Cephalexin [Keflex] 250 mg PO Q6HR #28 cap 03/18/20 Rx Allergies: No Known Allergies Allergy (Verified 03/10/20 15:36) - Discharge Instructions Activity:: Activity as Tolerated Nourishment:: Regular Diet Therapies:: Physical Therapy, Wound Care - Follow up Plan Referrals: Unknown,Unknown [Primary Care Provider] - Disposition: REHABILITATION INPATIENT
[2020-03-18] MEDS: Latanoprost 0.005% Ophth Soln 2.5 ml Bottle EA EYE SCH (20:17)
[2020-03-18 20:19] VITALS: BP 123/78; TEMP 98.7
== END 2020-03-18 20:20 | DRG 870 ==
LOC: ERS 16:55 → ERHOLD 20:39 → 2NO 03-10 14:42 → CCU 03-11 23:07 → 2NO 03-17 15:25
PROVIDERS: ADMIT Internal Medicine; ATTEND Hospitalist
PROC: 5A12012 Performance of Cardiac Output, Single, Manual (ICD-10-PCS; 2020-03-11)
PROC: 5A1955Z Respiratory Ventilation, Greater than 96 Consecutive Hours (ICD-10-PCS; principal; 2020-03-12)
PROC: 06HY33Z Insertion of Infusion Device into Lower Vein, Percutaneous Approach (ICD-10-PCS; 2020-03-12)
PROC: 3E033XZ Introduction of Vasopressor into Peripheral Vein, Percutaneous Approach (ICD-10-PCS; 2020-03-12)
PROC: 0BH17EZ Insertion of Endotracheal Airway into Trachea, Via Natural or Artificial Opening (ICD-10-PCS; 2020-03-12)
DX: A41.50 Gram-negative sepsis, unspecified (principal); J96.01 Acute respiratory failure with hypoxia; J69.0 Pneumonitis due to inhalation of food and vomit; I46.8 Cardiac arrest due to other underlying condition; E87.1 Hypo-osmolality and hyponatremia; G82.20 Paraplegia, unspecified; N39.0 Urinary tract infection, site not specified; L03.312 Cellulitis of back [any part except buttock and flank]; E87.6 Hypokalemia; J44.9 Chronic obstructive pulmonary disease, unspecified; Z20.828 Contact with and (suspected) exposure to other viral communicable diseases; M79.7 Fibromyalgia; G20 Parkinson's disease; F32.9 Major depressive disorder, single episode, unspecified; G40.909 Epilepsy, unspecified, not intractable, without status epilepticus; E83.42 Hypomagnesemia; I34.0 Nonrheumatic mitral (valve) insufficiency; I48.91 Unspecified atrial fibrillation; M47.812 Spondylosis without myelopathy or radiculopathy, cervical region; G62.9 Polyneuropathy, unspecified; L89.152 Pressure ulcer of sacral region, stage 2; G89.4 Chronic pain syndrome; E03.9 Hypothyroidism, unspecified; B95.2 Enterococcus as the cause of diseases classified elsewhere; E53.9 Vitamin B deficiency, unspecified; D69.6 Thrombocytopenia, unspecified; Z95.0 Presence of cardiac pacemaker
CPT/HCPCS: 36415; 36416; 36600; 51701; 70450; 71045; 71275; 72125; 80048; 80053; 80202; 81003; 82550; 82805; 83605; 83735; 83880; 84100; 84484; 85025; 87040; 87077; 87086; 87186; 87635; 93005; 93306; 94002; 94003; 94760; 95816; 95819; 96365; 96366; 96367; 96368; 96375; C9113; J0171; J0692; J1644; J1885; J1940; J2060; J2270; J2543; J2704; J3010; J3370; J3475; J3480; J3490; J7050; J7070; Q9967; U0003

== ENCOUNTER 2020-05-26 13:58 | Inpatient (IN) | payer MEDICARE, MEDICAID ==
[2020-05-26 14:35] LABS: Hemoglobin 13.3 g/dL (14.0-18.0); Mean Corpuscular HGB CONC 32.1 g/dL (32.0-36.0); Mean Corpuscular Hemoglobin 33.1 pg (27.0-31.0); RBC Distribution Width 14.2 % (11.5-14.5); Red Blood Cell (RBC) Count 4.01 mill/uL (4.70-6.10); White Blood Cell (WBC) Count 4.2 thou/uL (4.8-10.8)
[2020-05-26 14:55] LABS: ALT (SGPT) 8 U/L (8-55); AST (SGOT) 89 U/L (5-34); Albumin 2.6 g/dL (3.4-4.8); Alkaline Phosphatase 262 U/L (40-110); Anion Gap 20 mmol/L (10-20); BUN (Urea Nitrogen) 6 mg/dL (8.4-25.7); Bilirubin, Total 0.8 mg/dL (0.2-1.2); Calc. Creatinine Clearance 0 mL/min (70-130); Calcium 7.9 mg/dL (7.8-10.44); Carbon Dioxide 28 mmol/L (23-31); Chloride 91 mmol/L (98-107); Globulin 4.7 g/dL (2.4-3.5); Glucose 107 mg/dL (80-115); Protein, Total 7.3 g/dL (5.8-8.1); Sodium 136 mmol/L (136-145)
[2020-05-26 14:57] LABS: Potassium 2.8 mmol/L (3.5-5.1)
[2020-05-26 15:02] LABS: Band 19 % (5-11); Lymphocytes 27 % (21-51); MDiff Complete? YES; Macrocytosis SLIGHT = 6-15 cells (100X) (0-5/hpf); Mean Platelet Volume 8.1 fL (7.4-10.4); Monocytes 19 % (0-10); Neutrophil 20 % (42-75); Platelet Count 88 thou/uL (130-400); Platelet Morphology Comment Appears Decreased; Polychromasia SLIGHT = 2-3 cells (100X) (0-2/hpf); Reactive Lymphocytes 15 % (0-10); Target Cells SLIGHT = 2-5 cells (100X) (0-1/hpf)
[2020-05-26] MEDS ORDERED: Magnesium 2 GM/50 ML BAG (IN WATER) ONE (15:03)
[2020-05-26] MEDS ORDERED: Potassium Chloride 20 MEQ TAB ONE (15:03)
--- NOTE | 2020-05-26 15:08 | RAD ---
PORTABLE CHEST: HISTORY: Atrial fibrillation. COMPARISON: A 03/18/2020 exam. FINDINGS: Heart size and mediastinum are within normal limits. A pacemaker is present. Old left rib fractures are noted. Lungs show interstitial changes. The changes in the bases are less pronounced than on the prior exam ination. IMPRESSION: Increased interstitial lung markings appear largely chronic in nature. Changes are fairly similar to the previous exam with the exception that the changes in the bases, particularly the right base, hav e improved, and decreased effusions. POS: SUDARSHAN
[2020-05-26 15:16] LABS: CKMB 1.6 ng/mL (0-6.6)
[2020-05-26 15:29] LABS: Carbamazepine-Tegretol Less than 1.9 ug/mL (4.0-12.0)
[2020-05-26] MEDS ORDERED: Aspirin Chewable 81 MG TAB ONE (15:42)
--- NOTE | 2020-05-26 16:14 | CT ---
Exam: Head CT without contrast HISTORY: Altered mental status. COMPARISON: 03/09/2020 FINDINGS: Hemorrhage: No intraparenchymal hemorrhage or extra-axial hematoma. Brain parenchyma: Cortical rodriguez-white matter differentiation is preserved. No mass effect or midline shift. Basilar cisterns are patent. Ventricular system: Ventricles and sulci are patent and symmetric. Calvarium: Intact. Sinuses and mastoid air cells: Mild mucosal thickening of the paranasal sinuses IMPRESSION: No acute intracranial process.
[2020-05-26 16:50] LABS: Prothrombin Time 13.1 sec (12.0-14.7)
[2020-05-26 16:51] LABS: PTT 31.1 sec (22.9-36.1)
[2020-05-26 16:53] LABS: Magnesium 1.6 mg/dL (1.6-2.6); Phosphorus 4.1 mg/dL (2.3-4.7)
[2020-05-26] MEDS ORDERED: carBAMazepine 200 MG TAB PO SCH (18:00)
[2020-05-26 18:11] LABS: Bacteria/HPF 1+ HPF (None Seen); Bilirubin Negative (Negative); Blood, Urine Negative (Negative); Clarity Turbid (Clear); Glucose, Urine (Dipstick) Normal (Negative); Ketone, Urine Trace mg/dL (Negative); Leukocyte Negative Leu/uL (Negative); Nitrite Negative (Negative); Protein, Urine (Dipstick) 70 mg/dL (Neg-Trace); RBC/HPF 0-3 HPF (0-3); Specific Gravity, Urine 1.022 (1.002-1.036); Squamous Epithelial 0-3 HPF (0-3); Urobilinogen Normal mg/dL (Less than 2); pH, Urine 6.5 (5.0-9.0)
[2020-05-26] MEDS ORDERED: Gabapentin 400 MG CAP PO SCH (18:15)
[2020-05-26] MEDS ORDERED: DULoxetine 60 MG CAP PO SCH (18:15)
[2020-05-26 18:31] LABS: Troponin I 0.037 ng/mL (< 0.028)
[2020-05-26] MEDS ORDERED: Electrolyte Replacement Protocol 1 EACH FS SCH (19:15)
[2020-05-26] MEDS ORDERED: Electrolyte Replacement Protocol FS PRN (19:45)
[2020-05-26 20:08] VITALS: BMI 19.8
[2020-05-26] MEDS: Carbidopa/Levodopa 10-100 mg Tablet PO SCH (21:15)
[2020-05-26] MEDS: Metoprolol Tartrate 25 MG TAB PO SCH (21:15)
[2020-05-26] MEDS: cefTRIAXone\\ROCEPHIN 1 GM in Sodium Chloride 0.9% 100 ML IVPB SCH (21:16)
[2020-05-26 21:25] LABS: Troponin I 0.037 ng/mL (< 0.028)
[2020-05-26 23:59] LABS: Magnesium 1.8 mg/dL (1.6-2.6); Potassium 3.7 mmol/L (3.5-5.1)
[2020-05-27 01:57] LABS: SARS-CoV-2 PCR by NAA Not Detected (NotDetected)
--- NOTE | 2020-05-27 01:59 | HP ---
REASON FOR ADMISSION: Weakness. HISTORY OF PRESENT ILLNESS: This is a 70-year-old male patient, who is presenting to the ER reporting that for the past week he has been experiencing generalized weakness and increased tremors. He is known to have Parkinson disease. He also does report losing consciousness, last episode was yesterday. He was sitting in his chair and it seems that he blacked out. Also, reports multiple falls. Also, reports a cough, but no worsening of his chronic shortness of breath. He also reports off and on confusion. In the emergency room, he was found to be in atrial fibrillation with RVR, then converted to a short episode of ventricular tachycardia, then currently he is in sinus tachycardia, his electrolytes did reveal a potassium of 2.6 and a magnesium of 1.6. He is currently receiving replacement. I did review his records. The patient was admitted to our hospital in February. He remained hospitalized for approximately 2 weeks. During his stay, he was diagnosed with cellulitis and abscess of his sacral decubitus area. At some point, he developed respiratory failure, coded, developed PEA, but then return of spontaneous circulation after being intubated. Eventually, he was extubated. During his stay, he was treated for aspiration pneumonitis, for UTI positive for Enterococcus faecalis. His echocardiogram showed elevated pulmonary arterial pressure. PAST MEDICAL HISTORY: 1. Amezcua over 70% of body with resulting muscle weakness. 2. COPD, on 2.5 L oxygen at home. 3. Fibromyalgia. 4. Parkinson disease. 5. Seizure disorder. 6. Vitamin B12 deficiency. 7. Hypothyroidism. 8. Peripheral neuropathy. 9. Chronic decubitus ulcer. 10. Status post pacemaker placement approximately 5 years ago. SOCIAL HISTORY: He continues to smoke. Does not drink alcohol. ALLERGIES: NO NOTE OF DRUG ALLERGIES. FAMILY HISTORY: Negative for premature coronary artery disease. REVIEW OF SYSTEMS: All systems reviewed except the above-mentioned weakness, found to be negative. PHYSICAL EXAMINATION: GENERAL: He is awake, alert, oriented, does not appear in distress. VITAL SIGNS: His blood pressure is 107/74, heart rate of 111, temperature is 97.8, and saturating 98% on 2 L nasal cannula. HEENT: Head is nontraumatic and normocephalic. Pupils equal and reactive. Extraocular movements are intact. Nonicteric sclerae. Well-injected conjunctivae. Oral mucosa normal. Nasal mucosa normal. NECK: Supple. No adenopathy. No murmur. Thyroid is not palpable. Trachea is midline. No supraclavicular adenopathy. HEART: S1 and S2 regular. No displacement of PMI. No murmur. LUNGS: Slight decreased air entry bilaterally, but otherwise no wheezes, no rhonchi, no crackles. ABDOMEN: Bowel sounds are positive. Nontender abdomen. EXTREMITIES: He does not have any bilateral lower extremity edema. Does have dry skin and changes compatible with chronic venous insufficiency. NEURO: Cranial nerves II through XII within normal limits. Normal motor function. Normal sensory function. LABORATORY DATA: Blood work shows a WBC of 4.2; hemoglobin 13.3, previous hemoglobin 9.8; and platelets of 88, sodium of 136, potassium 2.8, creatinine 0.66, troponin 0.042, and magnesium of 1.6. Repeat troponin 0.037. Albumin 2.6. Tegretol level less than 1.9. Urinalysis showing 4 to 6 wbc's and bacteria. Negative nitrites, negative leukocyte esterase. IMAGING STUDIES: EKG per my read shows sinus tachycardia. CT of the brain shows no acute intracranial pathology. Chest x-ray shows increased interstitial lung markings that appear largely chronic in nature. Changes are fairly similar to the previous exam with the exception that the change is in the bases, particularly on the right side have improved and decreased effusion. ASSESSMENT AND PLAN: This is a 70-year-old male patient, who is presenting with weakness, found to be in rapid atrial fibrillation, converted to ventricular tachycardia, then sinus tachycardia. He was found to have a potassium of 2.6 and magnesium of 1.6. He had similar presentation in the past, where his electrolytes were very low and had episodes of atrial fibrillation. He was seen today by Cardiology and his pacemaker was interrogated. He is currently receiving potassium and magnesium. 1. Neurology: The patient has history of seizures. His last episode was 15 years ago. His Tegretol level is subtherapeutic. He is currently receiving a dose of Tegretol. We will resume his home dose and we will titrate since he is seizure-free, we can do that later on. We will resume his levodopa for his Parkinson disease and we will resume his Neurontin for his neuropathy after we verify his home dose. 2. Cardiac: The patient presented with rapid atrial fibrillation and had episodes of ventricular tachycardia. We need to correct his electrolytes. We will recheck later on tonight potassium and magnesium and correct as per our protocol. 3. Pulmonary: The patient does have chronic obstructive pulmonary disease. Does not look like an exacerbation. We will have him on neb treatments as needed. We will resume his inhalers when med rec is done. 4. Endocrinology: He is on levothyroxine. We will resume it when med rec is done. 5. I did examine his sacral area. He does have superficial ulceration, does not look infected. We will have our wound care team see him. 6. Renal system, electrolytes: The patient does have low potassium, low magnesium. Most likely, the underlying cause of his arrhythmia as well, make sure that we correct those abnormalities. 7. His urinalysis could possibly reflect a urinary tract infection. We will have him on IV Rocephin until we have a urine culture results and sensitivity. 8. I did discuss with him his code status and he wishes to be a full code. 9. For deep venous thrombosis prophylaxis to be on Lovenox subcutaneously. Job ID: [id number]
[2020-05-27 05:26] LABS: Hemoglobin 12.9 g/dL (14.0-18.0); Mean Corpuscular HGB CONC 32.6 g/dL (32.0-36.0); Mean Corpuscular Hemoglobin 34.2 pg (27.0-31.0); Mean Platelet Volume 8.8 fL (7.4-10.4); Platelet Count 66 thou/uL (130-400); RBC Distribution Width 14.2 % (11.5-14.5); Red Blood Cell (RBC) Count 3.76 mill/uL (4.70-6.10)
[2020-05-27 06:52] LABS: Band 14 % (5-11); Lymphocytes 21 % (21-51); MDiff Complete? YES; Macrocytosis SLIGHT = 6-15 cells (100X) (0-5/hpf); Monocytes 15 % (0-10); Neutrophil 50 % (42-75); Platelet Morphology Comment Appears Decreased
[2020-05-27] MEDS ORDERED: Simethicone Chewable 80 MG TAB PO PRN (07:27)
[2020-05-27] MEDS ORDERED: Clotrimazole 1 % Cream 30 GM TUBE TOP PRN (07:27)
[2020-05-27] MEDS ORDERED: Non-Formulary Item 1 EACH (Sildenafil Citrate [Sildenafil Citrate] 50 MG Tablet) PO PRN (07:27)
[2020-05-27] MEDS ORDERED: Loratadine 10 MG TAB PO PRN (07:27)
[2020-05-27] MEDS ORDERED: Non-Formulary Item 1 EACH (Albuterol Sulfate [Proair Digihaler] 90 MCG Aer.Pw.Bas) IH PRN (07:29)
[2020-05-27] MEDS ORDERED: Cyanocobalamin 1000 MCG/ML VIAL IM SCH (07:30)
[2020-05-27] MEDS: Mometasone 200 MCG/Formoterol 5 MCG 120 PUFF INHALER INH SCH ×2 (07:33→18:20)
[2020-05-27] MEDS ORDERED: Betamethasone Val 0.1% Lotion 60 ML BOT TOP PRN (08:04)
[2020-05-27] MEDS ORDERED: Sodium Chloride Nasal 15 GM TUBE EA NARE PRN (08:06)
[2020-05-27] MEDS ORDERED: Methocarbamol 500 MG TAB PO PRN (08:13)
[2020-05-27] MEDS ORDERED: CETAPHIL CLEANSER TOP PRN (08:15)
[2020-05-27] MEDS ORDERED: Ipratropium Bromide 2.5 ml Neb NEB PRN (08:23)
[2020-05-27] MEDS ORDERED: carBAMazepine 200 MG TAB PO SCH (09:00)
[2020-05-27] MEDS: Carbidopa/Levodopa 10-100 mg Tablet PO SCH ×3 (09:07→20:18)
[2020-05-27] MEDS: DULoxetine 60 MG CAP PO SCH ×2 (09:08→20:20)
[2020-05-27] MEDS: Gabapentin 400 MG CAP PO SCH ×3 (09:08→20:19)
[2020-05-27] MEDS: Folic Acid 1 MG TAB PO SCH (09:10)
[2020-05-27] MEDS: Docusate 100 MG CAP PO SCH ×2 (09:11→20:19)
[2020-05-27] MEDS: Metoprolol Tartrate 25 MG TAB PO SCH ×2 (09:11→20:20)
[2020-05-27] MEDS: Ferrous Sulfate 325 MG TAB PO SCH (09:11)
[2020-05-27] MEDS: Enoxaparin Sodium 30 MG/0.3 ML SYRINGE SC SCH (09:12)
[2020-05-27] MEDS: Timolol 0.5% Ophth Soln 5 ml Bottle EA EYE SCH ×2 (09:45→20:17)
[2020-05-27] MEDS: pyridOXINE 50 MG (B6) TAB PO SCH (09:46)
[2020-05-27] MEDS: Hydroxychloroquine Sulfate 200 MG TAB PO SCH ×2 (09:46→20:18)
--- NOTE | 2020-05-27 13:48 | PRG ---
DATE OF SERVICE: 05/27/2020 SUBJECTIVE: Mr. Delcid is much improved. Heart rate is better. No current complaints. OBJECTIVE: VITAL SIGNS: Blood pressure 134/77, pulse 79, and temperature afebrile. LUNGS: Clear to auscultation. HEART: Regular rate and rhythm. ABDOMEN: Soft, nontender, and nondistended. EXTREMITIES: No edema. IMPRESSION: 1. Tachycardia. 2. Hypokalemia. 3. Hypomagnesemia. RECOMMENDATIONS: Mr. Delcid is doing much better overall. Last echo dated 03/13/2020 with LVEF of 50% to 55%. From a CV standpoint, I have no further recommendations. Job ID: [id number]
--- NOTE | 2020-05-27 14:13 | CON ---
DATE OF CONSULTATION: [employer]IMARY [employer]ER: Dr. Kyle Knapp at [facility]. REASON FOR CONSULTATION: Wide-complex tachycardia and AFib. HISTORY OF PRESENT ILLNESS: Mr. Delcid is an unfortunate 70-year-old gentleman with extensive previous history, who recently presented with weakness and fatigue. He also has decubitus ulcers for several months. He has a previous history of a pacemaker implantation. He was found to be profoundly hypokalemic and hypomagnesemic. He had a wide-complex tachycardia that appeared brief. During my visit in the emergency room, his main complaint is weakness. No chest pain, pressure, or other associated symptoms. His pacemaker was interrogated with results noted below. PAST MEDICAL HISTORY: Extensive doyle, tobacco abuse, Parkinson disease, seizure disorder, status post pacemaker, peripheral neuropathy, chronic decubitus ulcer. SOCIAL HISTORY: Positive tobacco use. ALLERGIES: NONE. HOME MEDICATIONS: 1. Metoprolol. 2. Iron sulfate. 3. Ipratropium. 4. Docusate. 5. Lactulose. 6. Mineral oil. 7. Lidocaine. 8. Albuterol. 9. . 10. Sildenafil. 11. Methocarbamol. 12. Levothyroxine. REVIEW OF SYSTEMS: A 10-point review of systems is reviewed and is as above, otherwise negative. PHYSICAL EXAMINATION: VITAL SIGNS: Blood pressure 134/77, pulse 79, temperature 98.6. GENERAL: Patient is a pleasant gentleman, who is in no acute distress. He does appear older than stated age. NEUROLOGIC: The patient is alert and oriented x3 with no focal neurologic deficits. HEENT: Sclerae without icterus. Mouth has moist mucous membranes with normal pallor. NECK: No JVD. Carotid upstroke brisk. No bruits bilaterally. LUNGS: Clear to auscultation with unlabored respirations. BACK: No scoliosis or kyphosis. CARDIAC: Regular rate and rhythm with normal S1 and S2. No S3 or S4 noted. No significant rubs, murmurs, thrills, or gallops noted throughout the precordium. PMI is not displaced. There is no parasternal heave. ABDOMEN: Soft, nontender, nondistended. No peritoneal signs present. No hepatosplenomegaly. No abnormal striae. EXTREMITIES: 2+ femoral and 2+ dorsalis pedis pulses. No cyanosis, clubbing, or edema. SKIN: Extensive healed scars and doyle noted. PACEMAKER INTERROGATION,: DDD pacemaker with battery life of 6-9 years. He is V-pacing 12% of the time. Sixteen episodes of high rate with intermittent episodes of atrial fibrillation with sinus tachycardia. No evidence of ventricular tachycardia present. IMPRESSION: 1. Atrial fibrillation. 2. Weakness and fatigue. 3. Hypokalemia. 4. Hypomagnesemia. RECOMMENDATIONS: Mr. Delcid's pacemaker was interrogated. No significant findings were noted other than paroxysmal atrial fibrillation. His rate has appeared to improve while in the emergency room. Would supplement with potassium in addition to magnesium. The patient also will need nourishment. Job ID: [id number]
--- NOTE | 2020-05-27 14:54 | PDOC.HOSPP ---
- Objective Vital Signs & Weight: Vital Signs (12 hours) Temp Pulse Resp BP BP BP BP 05/27/20 11:42 98.6 F 79 18 134/77 05/27/20 09:45 106 H 109/79 05/27/20 08:45 05/27/20 08:00 99.0 F 106 H 18 109/79 05/27/20 07:34 05/27/20 07:33 87 16 05/27/20 03:07 98.3 F 89 16 166/92 H Pulse Ox 05/27/20 11:42 100 05/27/20 09:45 05/27/20 08:45 97 05/27/20 08:00 97 05/27/20 07:34 98 05/27/20 07:33 98 05/27/20 03:07 97 Weight Admit Weight 127 lb Weight 127 lb Result Diagrams: 05/27/20 04:48 05/26/20 23:07 Hospitalist ROS - Medication Medications: Active Medications Generic Name Dose Route Start Last Admin Trade Name Davian PRN Reason Stop Dose Admin Carbamazepine 200 mg 05/27/20 09:00 05/27/20 09:12 Carbamazepine 200 Mg Tab PO 200 mg BID NICKOLAS Administration Carbidopa/Levodopa 1 tab 05/26/20 21:00 05/27/20 14:31 Carbidopa/Levodopa 10-100 Mg Tablet PO 1 tab TID NICKOLAS Administration Docusate Sodium 100 mg 05/27/20 09:00 05/27/20 09:11 Docusate 100 Mg Cap PO 100 mg BID NICKOLAS Administration Duloxetine HCl 60 mg 05/27/20 09:00 05/27/20 09:08 Duloxetine 60 Mg Cap PO 60 mg BID NICKOLAS Administration Enoxaparin Sodium 30 mg 05/27/20 09:00 05/27/20 09:12 Enoxaparin Sodium 30 Mg/0.3 Ml Syringe SC 30 mg 899 NICKOLAS Administration Ferrous Sulfate 325 mg 05/27/20 09:00 05/27/20 09:11 Ferrous Sulfate 325 Mg Tab PO 325 mg DAILY NICKOLAS Administration Folic Acid 1 mg 05/27/20 09:00 05/27/20 09:10 Folic Acid 1 Mg Tab PO 1 mg DAILY NICKOLAS Administration Gabapentin 1,200 mg 05/27/20 09:00 05/27/20 14:30 Gabapentin 400 Mg Cap PO 1,200 mg TID NICKOLAS Administration Hydroxychloroquine Sulfate 200 mg 05/27/20 09:00 05/27/20 09:46 Hydroxychloroquine Sulfate 200 Mg Tab PO 200 mg BID NICKOLAS Administration Ceftriaxone Sodium 1 gm/ 100 mls @ 200 mls/hr 05/26/20 21:00 05/26/20 21:16 Sodium Chloride IVPB 100 mls Q24HR NICKOLAS Administration Metoprolol Tartrate 25 mg 05/26/20 21:00 05/27/20 09:11 Metoprolol Tartrate 25 Mg Tab PO 25 mg BID NICKOLAS Administration Mometasone Furoate/Formoterol Fumar 2 puff 05/27/20 06:30 05/27/20 07:33 Mometasone 200 Mcg/Formoterol 5 Mcg 120 Puff Inhaler INH 2 puff BID-RT NICKOLAS Administration Pantoprazole Sodium 40 mg 05/27/20 09:00 05/27/20 09:11 Pantoprazole 40 Mg Tab PO 40 mg BID NICKOLAS Administration Pyridoxine HCl 50 mg 05/27/20 09:00 05/27/20 09:46 Pyridoxine 50 Mg (B6) Tab PO 50 mg DAILY NICKOLAS Administration Timolol Maleate 1 drop 05/27/20 09:00 05/27/20 09:45 Timolol 0.5% Ophth Soln 5 Ml Bottle EA EYE 1 drop BID NICKOLAS Administration Hospitalist Exam Vitals: Vital Signs (12 hours) Temp Pulse Resp BP BP BP BP 05/27/20 11:42 98.6 F 79 18 134/77 05/27/20 09:45 106 H 109/79 05/27/20 08:45 05/27/20 08:00 99.0 F 106 H 18 109/79 05/27/20 07:34 05/27/20 07:33 87 16 05/27/20 03:07 98.3 F 89 16 166/92 H Pulse Ox 05/27/20 11:42 100 05/27/20 09:45 05/27/20 08:45 97 05/27/20 08:00 97 05/27/20 07:34 98 05/27/20 07:33 98 05/27/20 03:07 97 Weight Admit Weight 127 lb Weight 127 lb Hosp A/P - Plan Neurology----continue with Tegretol and adjust the dose Cardiac--- continue with telemetry monitoring Renal--- continue electrolyte replacement Pulmonary--- he has COPD Endocrinology--- continue with levothyroxine ID--- continue with Rocephin for possible UTI GI
--- NOTE | 2020-05-27 15:40 | PDOC.HOSPP ---
- Subjective Encounter Date: 05/27/20 Subjective: Appears to be doing better compared to yesterday. - Objective Vital Signs & Weight: Vital Signs (12 hours) Temp Pulse Resp BP BP BP Pulse Ox 05/27/20 11:42 98.6 F 79 18 134/77 100 05/27/20 09:45 106 H 109/79 05/27/20 08:45 97 05/27/20 08:00 99.0 F 106 H 18 109/79 97 05/27/20 07:34 98 05/27/20 07:33 87 16 98 Weight Admit Weight 127 lb Weight 127 lb Result Diagrams: 05/27/20 04:48 05/26/20 23:07 Hospitalist ROS - Medication Medications: Active Medications Generic Name Dose Route Start Last Admin Trade Name Davian PRN Reason Stop Dose Admin Carbidopa/Levodopa 1 tab 05/26/20 21:00 05/27/20 14:31 Carbidopa/Levodopa 10-100 Mg Tablet PO 1 tab TID NICKOLAS Administration Docusate Sodium 100 mg 05/27/20 09:00 05/27/20 09:11 Docusate 100 Mg Cap PO 100 mg BID NICKOLAS Administration Duloxetine HCl 60 mg 05/27/20 09:00 05/27/20 09:08 Duloxetine 60 Mg Cap PO 60 mg BID NICKOLAS Administration Enoxaparin Sodium 30 mg 05/27/20 09:00 05/27/20 09:12 Enoxaparin Sodium 30 Mg/0.3 Ml Syringe SC 30 mg 0900 NICKOLAS Administration Ferrous Sulfate 325 mg 05/27/20 09:00 05/27/20 09:11 Ferrous Sulfate 325 Mg Tab PO 325 mg DAILY NICKOLAS Administration Folic Acid 1 mg 05/27/20 09:00 05/27/20 09:10 Folic Acid 1 Mg Tab PO 1 mg DAILY NICKOLAS Administration Gabapentin 1,200 mg 05/27/20 09:00 05/27/20 14:30 Gabapentin 400 Mg Cap PO 1,200 mg TID NICKOLAS Administration Hydroxychloroquine Sulfate 200 mg 05/27/20 09:00 05/27/20 09:46 Hydroxychloroquine Sulfate 200 Mg Tab PO 200 mg BID NICKOLAS Administration Ceftriaxone Sodium 1 gm/ 100 mls @ 200 mls/hr 05/26/20 21:00 05/26/20 21:16 Sodium Chloride IVPB 100 mls Q24HR NICKOLAS Administration Metoprolol Tartrate 25 mg 05/26/20 21:00 05/27/20 09:11 Metoprolol Tartrate 25 Mg Tab PO 25 mg BID NICKOLAS Administration Mometasone Furoate/Formoterol Fumar 2 puff 05/27/20 06:30 05/27/20 07:33 Mometasone 200 Mcg/Formoterol 5 Mcg 120 Puff Inhaler INH 2 puff BID-RT NICKOLAS Administration Pantoprazole Sodium 40 mg 05/27/20 09:00 05/27/20 09:11 Pantoprazole 40 Mg Tab PO 40 mg BID NICKOLAS Administration Pyridoxine HCl 50 mg 05/27/20 09:00 05/27/20 09:46 Pyridoxine 50 Mg (B6) Tab PO 50 mg DAILY NICKOLAS Administration Timolol Maleate 1 drop 05/27/20 09:00 05/27/20 09:45 Timolol 0.5% Ophth Soln 5 Ml Bottle EA EYE 1 drop BID NICKOLAS Administration Hospitalist Exam Vitals: Vital Signs (12 hours) Temp Pulse Resp BP BP BP Pulse Ox 05/27/20 11:42 98.6 F 79 18 134/77 100 05/27/20 09:45 106 H 109/79 05/27/20 08:45 97 05/27/20 08:00 99.0 F 106 H 18 109/79 97 05/27/20 07:34 98 05/27/20 07:33 87 16 98 Weight Admit Weight 127 lb Weight 127 lb General Appearance: NAD Eye: PERRL, anicteric sclera ENT: normocephalic atraumatic Neck: supple, symmetric Heart: RRR, no murmur, no gallops Respiratory: CTAB, no wheezes, no rales Gastrointestinal: soft, non-tender, non-distended Hosp A/P (1) Tachycardia Code(s): R00.0 - TACHYCARDIA, UNSPECIFIED Status: Acute (2) Stage II pressure ulcer of sacral region Code(s): L89.152 - PRESSURE ULCER OF SACRAL REGION, STAGE 2 Status: Acute (3) COPD (chronic obstructive pulmonary disease) Status: Chronic Qualifiers: COPD type: unspecified COPD Qualified Code(s): J44.9 - Chronic obstructive pulmonary disease, unspecified (4) Chronic pain syndrome Code(s): G89.4 - CHRONIC PAIN SYNDROME Status: Chronic (5) Hypothyroidism Code(s): E03.9 - HYPOTHYROIDISM, UNSPECIFIED Status: Chronic Qualifiers: Hypothyroidism type: unspecified Qualified Code(s): E03.9 - Hypothyroidism, unspecified - Plan Patient was admitted for weakness found to have transient episodes of A. fib and V. tach, his potassium magnesium were very low, he was admitted and his electrolytes were replaced, he was seen by cardiology and he appears to have no further arrhythmias. Neurology----continue with Tegretol and adjust the dose, on admission his Tegretol level was very low, will increase his Tegretol from 200 mg twice a day to 400 twice a day, he needs to recheck levels later on as an outpatient. Cardiac--- continue with telemetry monitoring, continue with correcting his electrolytes, continue with his beta-hemalatha. Renal--- continue electrolyte replacement. Pulmonary--- he has COPD, seems to be stable. Endocrinology--- continue with levothyroxine. ID--- continue with Rocephin for possible UTI. Patient does have chronic pain syndrome, today he was resumed on his Neurontin. Wound care did see him, will follow the recommendation. We will ask physical therapy to see him and will ask case management to consult on him for discharge planning most likely in 24 hours.
[2020-05-27] MEDS: carBAMazepine 200 MG TAB PO SCH (17:19)
[2020-05-27 18:58] LABS: Calcium 7.4 mg/dL (7.8-10.44); Chloride 95 mmol/L (98-107); Potassium 3.2 mmol/L (3.5-5.1); Sodium 133 mmol/L (136-145)
[2020-05-27 18:59] LABS: Glucose 100 mg/dL (80-115)
[2020-05-27 19:01] LABS: Anion Gap 13 mmol/L (10-20); Carbon Dioxide 28 mmol/L (23-31)
[2020-05-27 19:02] LABS: Calc. Creatinine Clearance 99 mL/min (70-130)
[2020-05-27 19:03] LABS: BUN (Urea Nitrogen) 7 mg/dL (8.4-25.7)
[2020-05-27 19:04] LABS: Magnesium 1.5 mg/dL (1.6-2.6)
[2020-05-27] MEDS: Latanoprost 0.005% Ophth Soln 2.5 ml Bottle EA EYE SCH (20:16)
[2020-05-27] MEDS: cefTRIAXone\\ROCEPHIN 1 GM in Sodium Chloride 0.9% 100 ML IVPB SCH (20:17)
[2020-05-27] MEDS: Terazosin HCl 5 MG CAP PO SCH (20:18)
[2020-05-27] MEDS ORDERED: Refresh Lacri-lube Opth Oint 7 GM TUBE EA EYE SCH (21:00)
[2020-05-28 04:58] LABS: Hemoglobin 12.1 g/dL (14.0-18.0); Mean Corpuscular HGB CONC 32.3 g/dL (32.0-36.0); Mean Corpuscular Hemoglobin 33.9 pg (27.0-31.0); Mean Platelet Volume 8.9 fL (7.4-10.4); Platelet Count 77 thou/uL (130-400); RBC Distribution Width 14.3 % (11.5-14.5); Red Blood Cell (RBC) Count 3.58 mill/uL (4.70-6.10); White Blood Cell (WBC) Count 4.5 thou/uL (4.8-10.8)
[2020-05-28 05:15] LABS: ALT (SGPT) 29 U/L (8-55); AST (SGOT) 53 U/L (5-34); Albumin 2.3 g/dL (3.4-4.8); Alkaline Phosphatase 212 U/L (40-110); Anion Gap 14 mmol/L (10-20); BUN (Urea Nitrogen) 7 mg/dL (8.4-25.7); Bilirubin, Total 0.7 mg/dL (0.2-1.2); Calc. Creatinine Clearance 94 mL/min (70-130); Calcium 7.7 mg/dL (7.8-10.44); Carbon Dioxide 28 mmol/L (23-31); Chloride 90 mmol/L (98-107); Globulin 4.2 g/dL (2.4-3.5); Glucose 116 mg/dL (80-115); Potassium 3.4 mmol/L (3.5-5.1); Protein, Total 6.5 g/dL (5.8-8.1); Sodium 129 mmol/L (136-145)
[2020-05-28 05:26] LABS: Band 8 % (5-11); Lymphocytes 17 % (21-51); MDiff Complete? YES; Monocytes 17 % (0-10); Neutrophil 57 % (42-75); Platelet Morphology Comment Appears Decreased
[2020-05-28] MEDS: Levothyroxine Sodium 100 MCG TAB PO SCH (05:37)
[2020-05-28] MEDS ORDERED: Magnesium 2 GM/50 ML 2 GM in Premix Bag 1 BAG IVPB SCH (06:15)
[2020-05-28] MEDS ORDERED: Potassium Chloride 20 MEQ TAB PO SCH (06:30)
[2020-05-28] MEDS: Mometasone 200 MCG/Formoterol 5 MCG 120 PUFF INHALER INH SCH ×2 (07:17→19:39)
--- NOTE | 2020-05-28 08:43 | PDOC.HOSPP ---
- Subjective Encounter Date: 05/28/20 Subjective: He has no complaints and eager to go home. - Objective Vital Signs & Weight: Vital Signs (12 hours) Temp Pulse Resp BP BP Pulse Ox 05/28/20 08:00 98.4 F 110 H 14 102/64 92 L 05/28/20 07:33 99 05/28/20 07:18 99 05/28/20 07:17 84 16 99 05/28/20 04:35 98.6 F 76 15 137/81 87 L 05/28/20 01:08 98 05/28/20 00:00 105/64 Weight Admit Weight 127 lb Weight 127 lb I&O: 05/27/20 05/28/20 05/29/20 06:59 06:59 06:59 Intake Total 1200 Output Total 1100 Balance 100 Result Diagrams: 05/28/20 04:16 05/28/20 04:16 Hospitalist ROS - Medication Medications: Active Medications Generic Name Dose Route Start Last Admin Trade Name Freq PRN Reason Stop Dose Admin Carbamazepine 400 mg 05/27/20 17:00 05/27/20 17:19 Carbamazepine 200 Mg Tab PO 400 mg BID-WM NICKOLAS Administration Carbidopa/Levodopa 1 tab 05/26/20 21:00 05/27/20 20:18 Carbidopa/Levodopa 10-100 Mg Tablet PO 1 tab TID NICKOLAS Administration Docusate Sodium 100 mg 05/27/20 09:00 05/27/20 20:19 Docusate 100 Mg Cap PO 100 mg BID NICKOLAS Administration Duloxetine HCl 60 mg 05/27/20 09:00 05/27/20 20:20 Duloxetine 60 Mg Cap PO 60 mg BID NICKOLAS Administration Enoxaparin Sodium 30 mg 05/27/20 09:00 05/27/20 09:12 Enoxaparin Sodium 30 Mg/0.3 Ml Syringe SC 30 mg 09 NICKOLAS Administration Ferrous Sulfate 325 mg 05/27/20 09:00 05/27/20 09:11 Ferrous Sulfate 325 Mg Tab PO 325 mg DAILY NICKOLAS Administration Folic Acid 1 mg 05/27/20 09:00 05/27/20 09:10 Folic Acid 1 Mg Tab PO 1 mg DAILY NICKOLAS Administration Gabapentin 1,200 mg 05/27/20 09:00 05/27/20 20:19 Gabapentin 400 Mg Cap PO 1,200 mg TID NICKOLAS Administration Hydroxychloroquine Sulfate 200 mg 05/27/20 09:00 05/27/20 20:18 Hydroxychloroquine Sulfate 200 Mg Tab PO 200 mg BID NICKOLAS Administration Ceftriaxone Sodium 1 gm/ 100 mls @ 200 mls/hr 05/26/20 21:00 05/27/20 20:17 Sodium Chloride IVPB 100 mls Q24HR NICKOLAS Administration Magnesium Sulfate 2 gm/ Device 50 mls @ 50 mls/hr 05/28/20 06:15 05/28/20 06:23 IVPB 05/28/20 10:00 50 mls NOW NICKOLAS Administration Latanoprost 1 drop 05/27/20 21:00 05/27/20 20:16 Latanoprost 0.005% Ophth Soln 2.5 Ml Bottle EA EYE 1 drop HS NICKOLAS Administration Levothyroxine Sodium 100 mcg 05/28/20 06:00 05/28/20 05:37 Levothyroxine Sodium 100 Mcg Tab PO 100 mcg 0600 NICKOLAS Administration Metoprolol Tartrate 25 mg 05/26/20 21:00 05/27/20 20:20 Metoprolol Tartrate 25 Mg Tab PO Not Given BID NICKOLAS Mineral Oil/White Petrolatum 1 gm 05/27/20 21:00 05/27/20 20:55 Refresh Lacri-Lube Opth Oint 7 Gm Tube EA EYE Not Given HS NICKOLAS Mometasone Furoate/Formoterol Fumar 2 puff 05/27/20 06:30 05/28/20 07:17 Mometasone 200 Mcg/Formoterol 5 Mcg 120 Puff Inhaler INH 2 puff BID-RT NICKOLAS Administration Pantoprazole Sodium 40 mg 05/27/20 09:00 05/27/20 20:20 Pantoprazole 40 Mg Tab PO 40 mg BID NICKOLAS Administration Potassium Chloride 40 meq 05/28/20 06:30 05/28/20 06:37 Potassium Chloride 20 Meq Tab PO 05/28/20 10:00 40 meq NOW NICKOLAS Administration Pyridoxine HCl 50 mg 05/27/20 09:00 05/27/20 09:46 Pyridoxine 50 Mg (B6) Tab PO 50 mg DAILY NICKOLAS Administration Terazosin HCl 10 mg 05/27/20 21:00 05/27/20 20:18 Terazosin Hcl 5 Mg Cap PO 10 mg HS NICKOLAS Administration Timolol Maleate 1 drop 05/27/20 09:00 05/27/20 20:17 Timolol 0.5% Ophth Soln 5 Ml Bottle EA EYE 1 drop BID NICKOLAS Administration Hospitalist Exam Vitals: Vital Signs (12 hours) Temp Pulse Resp BP BP Pulse Ox 05/28/20 08:00 98.4 F 110 H 14 102/64 92 L 05/28/20 07:33 99 05/28/20 07:18 99 05/28/20 07:17 84 16 99 05/28/20 04:35 98.6 F 76 15 137/81 87 L 05/28/20 01:08 98 05/28/20 00:00 105/64 Weight Admit Weight 127 lb Weight 127 lb General Appearance: NAD, awake alert Eye: PERRL, anicteric sclera ENT: normocephalic atraumatic Neck: supple, symmetric Heart: RRR, no murmur, no gallops Respiratory: CTAB, no wheezes, no rales Gastrointestinal: soft, non-tender, non-distended Extremities: no cyanosis, no clubbing, no edema Skin: normal turgor Hosp A/P (1) Tachycardia Code(s): R00.0 - TACHYCARDIA, UNSPECIFIED Status: Acute (2) Stage II pressure ulcer of sacral region Code(s): L89.152 - PRESSURE ULCER OF SACRAL REGION, STAGE 2 Status: Acute (3) COPD (chronic obstructive pulmonary disease) Status: Chronic Qualifiers: COPD type: unspecified COPD Qualified Code(s): J44.9 - Chronic obstructive pulmonary disease, unspecified (4) Chronic pain syndrome Code(s): G89.4 - CHRONIC PAIN SYNDROME Status: Chronic (5) Hypothyroidism Code(s): E03.9 - HYPOTHYROIDISM, UNSPECIFIED Status: Chronic Qualifiers: Hypothyroidism type: unspecified Qualified Code(s): E03.9 - Hypothyroidism, unspecified - Plan Patient was admitted for weakness found to have transient episodes of A. fib and V. tach, his potassium magnesium were very low, he was admitted and his electrolytes were replaced, he was seen by cardiology and he appears to have no further arrhythmias. Neurology----continue with Tegretol and adjust the dose, on admission his Tegretol level was very low, will increase his Tegretol from 200 mg twice a day to 400 twice a day, he needs to recheck levels later on as an outpatient. Cardiac--- continue with telemetry monitoring, continue with correcting his electrolytes, continue with his beta-hemalatha. Renal--- continue electrolyte replacement. Pulmonary--- he has COPD, seems to be stable. Endocrinology--- continue with levothyroxine. ID--- continue with Rocephin for possible UTI. Patient does have chronic pain syndrome, today he was resumed on his Neurontin. Wound care did see him, will follow the recommendation. We will ask physical therapy to see him and will ask case management to consult on him for discharge planning most likely in 24 hours. Plan for today 3/ Patient continues to do well and is eager to go home. Neurology----on admission his Tegretol level was subtherapeutic, I increase his dose yesterday and will recheck a Tegretol level tomorrow. Renal--- his electrolytes continue to fluctuate, will start him on salt tabs for his hyponatremia, we are replacing his potassium and his magnesium, I will start him on a daily dose of potassium and magnesium. Endocrinology--- continue levothyroxine. ID--- continue with Rocephin. Pulmonary--- continue with current medications for his COPD. Musculoskeletal----awaiting PT to evaluate him given the recommendation. Wound--- patient has wound care team caring for his wound will follow the recommendation. field human resources manager consulted for further discharge planning projected tomorrow.
[2020-05-28] MEDS: Gabapentin 400 MG CAP PO SCH ×3 (09:16→22:06)
[2020-05-28] MEDS: DULoxetine 60 MG CAP PO SCH ×2 (09:18→22:08)
[2020-05-28] MEDS: pyridOXINE 50 MG (B6) TAB PO SCH (09:18)
[2020-05-28] MEDS: Folic Acid 1 MG TAB PO SCH (09:18)
[2020-05-28] MEDS: Carbidopa/Levodopa 10-100 mg Tablet PO SCH ×3 (09:18→22:08)
[2020-05-28] MEDS: Docusate 100 MG CAP PO SCH ×2 (09:18→22:05)
[2020-05-28] MEDS: carBAMazepine 200 MG TAB PO SCH ×2 (09:18→17:18)
[2020-05-28] MEDS: Metoprolol Tartrate 25 MG TAB PO SCH ×2 (09:18→22:09)
[2020-05-28] MEDS: Ferrous Sulfate 325 MG TAB PO SCH (09:18)
[2020-05-28] MEDS: Timolol 0.5% Ophth Soln 5 ml Bottle EA EYE SCH ×2 (09:21→22:15)
[2020-05-28] MEDS: Hydroxychloroquine Sulfate 200 MG TAB PO SCH ×2 (09:23→22:05)
[2020-05-28] MEDS: Sodium Chloride 1 GM TAB PO SCH ×2 (09:56→22:05)
[2020-05-28] MEDS: Enoxaparin Sodium 30 MG/0.3 ML SYRINGE SC SCH (10:20)
[2020-05-28] MEDS: Potassium Chloride 20 MEQ TAB PO SCH (17:18)
[2020-05-28 17:53] LABS: Anion Gap 13 mmol/L (10-20); BUN (Urea Nitrogen) 8 mg/dL (8.4-25.7); Calc. Creatinine Clearance 82 mL/min (70-130); Calcium 7.8 mg/dL (7.8-10.44); Carbon Dioxide 28 mmol/L (23-31); Chloride 92 mmol/L (98-107); Glucose 107 mg/dL (80-115); Magnesium 1.8 mg/dL (1.6-2.6); Potassium 3.7 mmol/L (3.5-5.1); Sodium 129 mmol/L (136-145)
[2020-05-28] MEDS: Magnesium Oxide 400 MG TAB PO SCH ×2 (18:01→22:08)
[2020-05-28] MEDS ORDERED: Sodium Chloride 0.9% 1,000 ML IV SCH (20:30)
[2020-05-28] MEDS: Terazosin HCl 5 MG CAP PO SCH (22:08)
[2020-05-28] MEDS: cefTRIAXone\\ROCEPHIN 1 GM in Sodium Chloride 0.9% 100 ML IVPB SCH (22:09)
[2020-05-28] MEDS: Latanoprost 0.005% Ophth Soln 2.5 ml Bottle EA EYE SCH (22:14)
[2020-05-29 05:08] LABS: Anion Gap 14 mmol/L (10-20); BUN (Urea Nitrogen) 8 mg/dL (8.4-25.7); Calc. Creatinine Clearance 93 mL/min (70-130); Calcium 7.8 mg/dL (7.8-10.44); Carbon Dioxide 27 mmol/L (23-31); Chloride 95 mmol/L (98-107); Glucose 108 mg/dL (80-115); Magnesium 1.8 mg/dL (1.6-2.6); Potassium 3.8 mmol/L (3.5-5.1); Sodium 132 mmol/L (136-145)
[2020-05-29] MEDS: Levothyroxine Sodium 100 MCG TAB PO SCH (05:35)
[2020-05-29] MEDS ORDERED: Magnesium 2 GM/50 ML 2 GM in Premix Bag 1 BAG IVPB SCH (06:15)
[2020-05-29] MEDS: Mometasone 200 MCG/Formoterol 5 MCG 120 PUFF INHALER INH SCH (07:19)
[2020-05-29] MEDS: Gabapentin 400 MG CAP PO SCH (08:01)
[2020-05-29] MEDS: DULoxetine 60 MG CAP PO SCH (08:02)
[2020-05-29] MEDS: Potassium Chloride 20 MEQ TAB PO SCH (08:03)
[2020-05-29] MEDS: Metoprolol Tartrate 25 MG TAB PO SCH (08:03)
[2020-05-29] MEDS: Ferrous Sulfate 325 MG TAB PO SCH (08:03)
[2020-05-29] MEDS: pyridOXINE 50 MG (B6) TAB PO SCH (08:03)
[2020-05-29] MEDS: carBAMazepine 200 MG TAB PO SCH (08:03)
[2020-05-29] MEDS: Magnesium Oxide 400 MG TAB PO SCH (08:03)
[2020-05-29] MEDS: Docusate 100 MG CAP PO SCH (08:04)
[2020-05-29] MEDS: Folic Acid 1 MG TAB PO SCH (08:04)
[2020-05-29] MEDS: Carbidopa/Levodopa 10-100 mg Tablet PO SCH (08:04)
--- NOTE | 2020-05-29 08:40 | PDOC.DS.DS ---
Provider Date of Admission: 05/26/20 17:52 Date of Discharge: 05/29/20 Admitting Provider: Leeanne Manuel MD Consultations: Cardiology Primary Care Physician: Unknown Course Hospital Course: This is an 89-year-old male patient who presented to the emergency room for generalized weakness and increased tremors, he did report losing consciousness, he did report multiple falls, in the ER he was found to be an A. fib with RVR then converted to short episode of V. tach than sinus tachycardia, his potassium was 2.6 and magnesium was 1.6. He was admitted, his electrolytes were replaced, he had wound care for his decubiti ulcers, they were not considered as infected. His urine was weakly positive he was started on IV Rocephin, he was seen by cardiology, they recommended replacing his electrolytes. At some point he developed low sodium level, he was started on IV fluids and salt tablets, his sodium improved. Today he is eager to go home, he will be discharged on a short course of Ceftin, on 3 days of salt tabs, his Tegretol dose was increased from twice daily to the 3 times daily (his Tegretol level was subtherapeutic on admission), he is advised to follow-up with his primary care physician to check on his Tegretol level, patient understood that and verbalized agreement. Patient will also be on maintenance oral potassium and oral magnesium. Patient does have a nurse that visits him 3 times a week to care for his wound. Resuscitation Status: 05/26/20 19:09 Resuscitation Status Routine Resuscitation Status: FULL: Full Resuscitation Lab Results: 05/28/20 04:16 05/29/20 04:23 Abnormal Lab Results - Last 48 hrs 05/27/20 15:00: Sodium 133 L, Potassium 3.2 L, Chloride 95 L, BUN 7 L, Creatinine 0.58 L, Calcium 7.4 L, Magnesium 1.5 L 05/28/20 04:16: Sodium 129 L, Potassium 3.4 L, Chloride 90 L, BUN 7 L, Creatinin e 0.61 L, Calcium 7.7 L, AST 53 H, Alkaline Phosphatase 212 H, Albumin 2.3 L, Globulin 4.2 H, Albumin/Globulin Ratio 0.5 L 05/28/20 04:16: WBC 4.5 L, RBC 3.58 L, Hgb 12.1 L, Hct 37.5 L, MCV 105.0 H, MCH 33.9 H, Plt Count 77 L, Lymphocytes % (Manual) 17 L, Monocytes % (Manual) 17 H, Plt Morphology Comment Appears Decreased L 05/28/20 17:14: Sodium 129 L, Chloride 92 L, BUN 8 L 05/29/20 04:23: Sodium 132 L, Chloride 95 L, BUN 8 L, Creatinine 0.62 L Vitals: Vital Signs (12 hours) Temp Pulse Resp BP BP BP Pulse Ox 05/29/20 07:59 98.6 F 81 14 115/63 92 L 05/29/20 07:20 93 L 05/29/20 07:19 76 16 93 L 05/29/20 04:35 97.9 F 77 18 100/64 92 L 05/29/20 01:13 93 L 05/28/20 22:15 81 149/86 H Weight Admit Weight 127 lb Weight 129 lb Physical Exam: The patient was seen and examined on the day of discharge. General Appearance: NAD, awake alert Eye: PERRL, anicteric sclera ENT: normocephalic atraumatic Neck: supple, symmetric, no JVD, no thyromegaly Respiratory: CTAB, no wheezes, no rales Cardiovascular: RRR, no murmur, no gallops Gastrointestinal: soft, non-tender, non-distended Extremities: no cyanosis, no clubbing, no edema Skin: normal turgor, no lesions Neurological: cranial nerve grossly intact, normal sensation to touch Musculoskeletal: normal tone, normal strength PSYCH: normal affect, normal behavior Problem (1) Tachycardia Code(s): R00.0 - TACHYCARDIA, UNSPECIFIED Status: Acute (2) Stage II pressure ulcer of sacral region Code(s): L89.152 - PRESSURE ULCER OF SACRAL REGION, STAGE 2 Status: Chronic (3) COPD (chronic obstructive pulmonary disease) Status: Chronic Qualifiers: COPD type: unspecified COPD Qualified Code(s): J44.9 - Chronic obstructive pulmonary disease, unspecified (4) Chronic pain syndrome Code(s): G89.4 - CHRONIC PAIN SYNDROME Status: Chronic (5) Hypothyroidism Code(s): E03.9 - HYPOTHYROIDISM, UNSPECIFIED Status: Chronic Qualifiers: Hypothyroidism type: unspecified Qualified Code(s): E03.9 - Hypothyroidism, unspecified (6) Hypomagnesemia Code(s): E83.42 - HYPOMAGNESEMIA Status: Acute (7) Hypokalemia Code(s): E87.6 - HYPOKALEMIA Status: Acute Plan Prescriptions: carBAMazepine 200 mg PO TID #90 tablet Cefuroxime Axetil [Ceftin] 250 mg PO BID 3 Days #6 tab Potassium Chloride [K-Dur] 20 meq PO BID-WM #60 tab Magnesium Oxide 400 mg PO TID #90 tab Sodium Chloride 1 gm PO BID 3 Days #6 tab Home Medications: Medication Instructions Recorded Confirmed Type Albuterol Sulfate [Proair 2 puff IH Q4H PRN 12/29/19 05/26/20 History Digihaler] Budesonide/Formoterol Fumarate 2 puff IH BID 12/29/19 05/26/20 History [Budesonide-Formoterol 160-4.5] Carbidopa/Levodopa 100 mg PO TID 12/29/19 05/26/20 History [Carbidopa-Levodopa 10-100 Tab] Clotrimazole 1% Cream [Lotrimin 1% 1 applic TOP BID PRN 12/29/19 05/26/20 History Cream] Cyanocobalamin (Vitamin B-12) 1,000 mcg IM [id number] 12/29/19 05/26/20 History [Cyanocobalamin Injection] DULoxetine HCl [Cymbalta] 60 mg PO BID 12/29/19 05/26/20 History Docusate [Colace] 100 mg PO BID 12/29/19 05/26/20 History Ferrous Sulfate 325 mg PO DAILY 12/29/19 05/26/20 History Folic Acid 1 mg PO DAILY 12/29/19 05/26/20 History Gabapentin 1,200 mg PO TID 12/29/19 05/26/20 History Hydroxychloroquine Sulfate 200 mg PO BID 12/29/19 05/26/20 History Ipratropium [Atrovent HFA] 2 puff INH Q4H PRN 12/29/19 05/26/20 History Lactulose 10 GM/15ML Oral Cecilia 30 ml PO TID PRN 12/29/19 05/26/20 History [Lactulose] Latanoprost [Latanoprost 0.05% 1 drop EA EYE HS 12/29/19 05/26/20 History Ophth] Levothyroxine Sodium [Synthroid] 100 mcg PO 0600 12/29/19 05/26/20 History Lidocaine [Lidocaine 5% Ointment] 1 applic TOP QID PRN 12/29/19 05/26/20 History Loratadine 10 mg PO DAILY PRN 12/29/19 05/26/20 History Methocarbamol 750 mg PO TID PRN 12/29/19 05/26/20 History Mineral Oil/Petrolatum,White 1 applic EA EYE HS 12/29/19 05/26/20 History [Lubricant Eye Ointment] Omeprazole 20 mg PO BID 12/29/19 05/26/20 History Petrolatum,White [Hydrophor 42% 1 applic TOP ASDIR PRN 12/29/19 05/26/20 History Ointment] Sildenafil Citrate 25 mg PO DAILY PRN 12/29/19 05/26/20 History Simethicone 80 mg PO TID PRN 12/29/19 05/26/20 History Skin Cleanser Comb No.31 1 spray TOP ASDIR 12/29/19 05/26/20 History [Skintegrity Wound Cleanser] Sodium Chloride [[place] Saline 0.65% 1 spray EA NARE ASDIR PRN 12/29/19 05/26/20 History Drops] Terazosin HCl 10 mg PO HS 12/29/19 05/26/20 History Timolol Maleate [Timoptic 0.5% 1 drop EA EYE BID 12/29/19 05/26/20 History Ophth Soln] Triamcinolone Acetonide 1 applic TOP BID PRN 12/29/19 05/26/20 History [Triamcinolone Acetonide 0.1% Lotion] pyridOXINE [Vitamin B 6] 1 tab PO DAILY 12/29/19 05/26/20 History Metoprolol Tartrate [Lopressor] 25 mg PO BID #60 tab 12/30/19 05/26/20 Rx Cefuroxime Axetil [Ceftin] 250 mg PO BID 3 Days #6 tab 05/29/20 Rx Magnesium Oxide 400 mg PO TID #90 tab 05/29/20 Rx Potassium Chloride [K-Dur] 20 meq PO BID-WM #60 tab 05/29/20 Rx Sodium Chloride 1 gm PO BID 3 Days #6 tab 05/29/20 Rx carBAMazepine 200 mg PO TID #90 tablet 05/29/20 Rx Allergies: No Known Allergies Allergy (Verified 03/10/20 15:36) Referrals: Unknown,Unknown [Primary Care Provider] - Disposition: HOME
[2020-05-29] MEDS ORDERED: Enoxaparin Sodium 40 MG/0.4 ML SYRINGE SC SCH (09:00)
[2020-05-29] MEDS: Timolol 0.5% Ophth Soln 5 ml Bottle EA EYE SCH (11:03)
[2020-05-29] MEDS: Sodium Chloride 1 GM TAB PO SCH (11:04)
[2020-05-29] MEDS: Hydroxychloroquine Sulfate 200 MG TAB PO SCH (11:05)
[2020-05-29 11:14] VITALS: BP 126/69; TEMP 97.7
--- NOTE | 2020-05-30 15:39 | EKG ---
Test Reason : AMS Blood Pressure : / mmHG Vent. Rate : 163 BPM Atrial Rate : 163 BPM P-R Int : 080 ms QRS Dur : 116 ms QT Int : 296 ms P-R-T Axes : 000 099 042 degrees QTc Int : 487 ms Sinus tachycardia with short IN Right bundle branch block Septal infarct , age undetermined Abnormal ECG Confirmed by TRAVIS FAY DO ([id number]), television news video editor AMANDA DUMONT ([id number]) on 05/30/2020 3:38:49 PM Referred By: Confirmed By:TRAVIS FAY DO
== END 2020-05-29 01:30 | disposition home or self-care (01) | DRG 309 ==
LOC: ERS 13:58 → 2NO 17:52
PROVIDERS: ADMIT Internal Medicine; ATTEND Internal Medicine
DX: I48.91 Unspecified atrial fibrillation (principal); E87.1 Hypo-osmolality and hyponatremia; Z20.822 Contact with and (suspected) exposure to COVID-19; M79.7 Fibromyalgia; G20 Parkinson's disease; G40.909 Epilepsy, unspecified, not intractable, without status epilepticus; E53.8 Deficiency of other specified B group vitamins; L89.152 Pressure ulcer of sacral region, stage 2; I47.2 Ventricular tachycardia; G62.9 Polyneuropathy, unspecified; G89.4 Chronic pain syndrome; E03.9 Hypothyroidism, unspecified; J44.9 Chronic obstructive pulmonary disease, unspecified; R29.6 Repeated falls; E87.6 Hypokalemia; E83.42 Hypomagnesemia; F17.210 Nicotine dependence, cigarettes, uncomplicated; Z99.81 Dependence on supplemental oxygen; Z95.0 Presence of cardiac pacemaker; Z79.51 Long term (current) use of inhaled steroids; Z79.890 Hormone replacement therapy; Z79.899 Other long term (current) drug therapy
CPT/HCPCS: 36415; 70450; 71045; 80048; 80053; 80156; 81003; 81015; 82553; 83735; 83880; 84100; 84443; 84484; 85025; 85610; 85730; 86140; 87635; 93005; J0696; J1650; J3475; J3480; J3490; J7030; U0003; U0005

== ENCOUNTER 2020-06-28 22:19 | Emergency (ER) | payer MEDICARE, OTHER ==
[2020-06-28 23:19] LABS: Hemoglobin 11.6 g/dL (14.0-18.0); Mean Corpuscular HGB CONC 31.9 g/dL (32.0-36.0); Mean Corpuscular Hemoglobin 33.9 pg (27.0-31.0); Platelet Count 97 thou/uL (130-400); RBC Distribution Width 15.3 % (11.5-14.5); Red Blood Cell (RBC) Count 3.41 mill/uL (4.70-6.10); White Blood Cell (WBC) Count 3.4 thou/uL (4.8-10.8)
[2020-06-28 23:41] LABS: Hypochromia SLIGHT = 6-15 cells (100X) (0-5/hpf); Lymphocytes 20 % (21-51); MDiff Complete? YES; Macrocytosis SLIGHT = 6-15 cells (100X) (0-5/hpf); Monocytes 24 % (0-10); Neutrophil 56 % (42-75); Platelet Morphology Comment Appears Decreased
[2020-06-29 00:01] LABS: CKMB 2.1 ng/mL (0-6.6)
[2020-06-29 00:33] LABS: Albumin 2.4 g/dL (3.4-4.8)
[2020-06-29 00:34] LABS: Chloride 104 mmol/L (98-107); Potassium 4.9 mmol/L (3.5-5.1); Sodium 139 mmol/L (136-145)
[2020-06-29 00:35] LABS: Calcium 7.5 mg/dL (7.8-10.44)
[2020-06-29 00:36] LABS: Globulin 4.4 g/dL (2.4-3.5); Glucose 112 mg/dL (80-115); Protein, Total 6.8 g/dL (5.8-8.1)
[2020-06-29 00:37] LABS: Anion Gap 23 mmol/L (10-20); Bilirubin, Total 0.4 mg/dL (0.2-1.2); Carbon Dioxide 17 mmol/L (23-31)
[2020-06-29 00:38] LABS: Alkaline Phosphatase 261 U/L (40-110)
[2020-06-29 00:39] LABS: Calc. Creatinine Clearance 0 mL/min (70-130)
[2020-06-29 00:40] LABS: BUN (Urea Nitrogen) 5 mg/dL (8.4-25.7)
[2020-06-29 00:41] LABS: ALT (SGPT) 15 U/L (8-55); AST (SGOT) 127 U/L (5-34)
== END 2020-06-29 00:50 | disposition home or self-care (01) ==
LOC: ERS 22:19
DX: R53.1 Weakness (principal); G62.9 Polyneuropathy, unspecified; R07.9 Chest pain, unspecified; J44.9 Chronic obstructive pulmonary disease, unspecified; M79.7 Fibromyalgia; E03.9 Hypothyroidism, unspecified; G20 Parkinson's disease; F17.210 Nicotine dependence, cigarettes, uncomplicated; W19.XXXA Unspecified fall, initial encounter
CPT/HCPCS: 36415; 70450; 71045; 80053; 82553; 84484; 85025; 87040; 93005

== ENCOUNTER 2020-07-11 11:46 | Inpatient (IN) | payer MEDICARE, MEDICAID ==
[2020-07-11] MEDS ORDERED: Sodium Chloride 0.9% 1,000 ML IV SCH (12:00)
[2020-07-11] MEDS ORDERED: cefTRIAXone\\ROCEPHIN 2 GM VIAL ONE (12:05)
[2020-07-11] MEDS ORDERED: VANCOMYCIN 1.75 GM/350 ML BAG 1.75 GM in Premix Bag 1 BAG IVPB SCH ×2 (12:12→12:30)
[2020-07-11 12:39] LABS: Hemoglobin 5.9 g/dL (14.0-18.0); Mean Corpuscular HGB CONC 32.3 g/dL (32.0-36.0); Mean Corpuscular Hemoglobin 36.6 pg (27.0-31.0); Mean Platelet Volume 7.1 fL (7.4-10.4); Platelet Count 48 thou/uL (130-400); RBC Distribution Width 15.3 % (11.5-14.5); Red Blood Cell (RBC) Count 1.61 mill/uL (4.70-6.10); White Blood Cell (WBC) Count 4.4 thou/uL (4.8-10.8)
[2020-07-11 12:43] LABS: INR-International Normal Ratio 1.1; PTT 30.7 sec (22.9-36.1); Prothrombin Time 14.7 sec (12.0-14.7)
[2020-07-11 12:44] LABS: D-Dimer Test 3.22 *mcg/mL (0.27-0.43)
[2020-07-11 12:55] LABS: Anisocytosis SLIGHT = 6-15 cells (100X) (0-5/hpf); Band 3 % (5-11); Lymphocytes 6 % (21-51); MDiff Complete? YES; Macrocytosis SLIGHT = 6-15 cells (100X) (0-5/hpf); Monocytes 4 % (0-10); Neutrophil 87 % (42-75); Platelet Morphology Comment Appears Decreased; Polychromasia SLIGHT = 2-3 cells (100X) (0-2/hpf); Spherocytes SLIGHT = 1-5 cells (100X) (None Seen)
[2020-07-11] MEDS ORDERED: Sodium Chloride 0.9% (PF) 10 ML VIAL FS SCH (13:02)
[2020-07-11 13:03] LABS: ALT (SGPT) 80 U/L (8-55); AST (SGOT) 142 U/L (5-34); Albumin 2.3 g/dL (3.4-4.8); Alkaline Phosphatase 303 U/L (40-110); BUN (Urea Nitrogen) 4 mg/dL (8.4-25.7); Bilirubin, Total 1.1 mg/dL (0.2-1.2); Calc. Creatinine Clearance 0 mL/min (70-130); Calcium 7.5 mg/dL (7.8-10.44); Chloride 100 mmol/L (98-107); Globulin 3.9 g/dL (2.4-3.5); Glucose 75 mg/dL (80-115); Iron 121 ug/dL (65-175); Lipase 22 U/L (8-78); Magnesium 1.4 mg/dL (1.6-2.6); Potassium 3.5 mmol/L (3.5-5.1); Protein, Total 6.2 g/dL (5.8-8.1); Sodium 137 mmol/L (136-145)
[2020-07-11 13:09] LABS: Carbon Dioxide Less than 8 mmol/L (23-31)
[2020-07-11] MEDS ORDERED: Pantoprazole 40 MG VIAL ONE (13:15)
[2020-07-11 13:36] LABS: Bilirubin Negative (Negative); Blood, Urine Negative (Negative); Clarity Clear (Clear); Glucose, Urine (Dipstick) Normal (Negative); Ketone, Urine 100 mg/dL (Negative); Leukocyte Negative Leu/uL (Negative); Nitrite Negative (Negative); Protein, Urine (Dipstick) 70 mg/dL (Neg-Trace); Specific Gravity, Urine 1.019 (1.002-1.036); Urobilinogen Normal mg/dL (Less than 2)
[2020-07-11 13:45] LABS: Bacteria/HPF None Seen HPF (None Seen); RBC/HPF None Seen HPF (0-3); Squamous Epithelial 0-3 HPF (0-3); WBC/HPF None Seen HPF (0-3)
[2020-07-11] MEDS ORDERED: Calcium Gluc 4.6 MEQ/10 ML (100 MG/ML) ONE (14:02)
[2020-07-11 14:12] LABS: SARS-CoV-2 NAA Rapid Test Not Detected (NotDetected)
[2020-07-11] MEDS ORDERED: Norepinephrine 8 MG/0.9% NS 250 ML IVPB PRN (14:25)
[2020-07-11] MEDS ORDERED: Ondansetron PF 4 MG/2 ML Vial IVP PRN (14:25)
[2020-07-11] MEDS ORDERED: Pantoprazole 80 MG in Sodium Chloride 0.9% 100 ML IVPB SCH (14:25)
[2020-07-11] MEDS ORDERED: Octreotide Acetate 1,250 MCG in Sodium Chloride 0.9% 250 ML 250 ML IVPB SCH ×2 (14:30)
[2020-07-11] MEDS ORDERED: Octreotide Acetate 100 MCG/ML VIAL SLOW IVP SCH (14:30)
[2020-07-11] MEDS ORDERED: Sodium Bicarb 50 MEQ/50 ML Abboject 8.4% SYRINGE ONE ×2 (14:41→15:44)
[2020-07-11] MEDS ORDERED: Albuterol Sulfate 2.5 mg/3 ml Neb NEB PRN (15:13)
[2020-07-11] MEDS ORDERED: Sodium Bicarbonate 150 MEQ in Dextrose 5% in Water 1,000 ML IV SCH (15:15)
[2020-07-11] MEDS ORDERED: Ketamine 50 MG/ML (10ML VIAL) ONE (15:29)
[2020-07-11] MEDS ORDERED: Midazolam HCl 2 mg/2 ml Vial ONE (15:29)
[2020-07-11] MEDS ORDERED: Fentanyl 100 MCG/2 ML VIAL ONE (15:29)
[2020-07-11 15:49] LABS: Lactic Acid 2.3 mmol/L (0.5-2.2)
[2020-07-11 15:59] LABS: Troponin I 0.021 ng/mL (< 0.028)
[2020-07-11] MEDS ORDERED: Dexamethasone 20 MG/5 ML VIAL ONE (16:01)
[2020-07-11] MEDS ORDERED: Ondansetron PF 4 MG/2 ML Vial ONE (16:01)
[2020-07-11] MEDS ORDERED: Albuterol Sulfate HFA (OR ONLY) ONE (16:01)
[2020-07-11] MEDS ORDERED: Lidocaine 1% PF 5 ML VIAL ONE (16:01)
[2020-07-11] MEDS ORDERED: PROPOFOL 200 MG/20 ML VIAL ONE (16:01)
[2020-07-11] MEDS ORDERED: Succinylcholine 200 MG/10 ml SYRINGE FS ONE (16:01)
[2020-07-11] MEDS ORDERED: Multivitamins, Adult 10 ML, Folic Acid 1 MG in Dextrose 5 %-0.45 % NaCl 1,000 ML IV SCH (17:00)
[2020-07-11 17:24] VITALS: BMI 21.4
[2020-07-11] MEDS: Carbidopa/Levodopa 10-100 mg Tablet PO SCH ×2 (17:44→20:34)
[2020-07-11] MEDS: Gabapentin 400 MG CAP PO SCH ×2 (17:44→20:17)
[2020-07-11] MEDS: carBAMazepine 200 MG TAB PO SCH ×2 (17:44→20:22)
[2020-07-11 18:16] LABS: Hemoglobin 12.9 g/dL (14.0-18.0); Platelet Count 113 thou/uL (130-400)
[2020-07-11 18:36] LABS: Troponin I 0.024 ng/mL (< 0.028)
[2020-07-11 18:53] LABS: HBCM Index 0.08 S/CO (0-0.79); HBSAg Index 0.27 S/CO (0-0.99); HIV (1/2) Antibody/Antigen Non-Reactive (NonReactive); HIV 1/2 INDEX 0.23 S/CO (<1.00); Hep A IgM AB Non-Reactive (NonReactive); Hep A IgM S/CO 0.16 S/CO (0-0.79); Hep B Surf Ag Non-Reactive S/CO (NonReactive); Hep C IgG Ab Non-Reactive (NonReactive); Hepatitis B Core IgM Abs Non-Reactive (NonReactive)
[2020-07-11] MEDS ORDERED: DEXTROSE 5% IV SCH (19:30)
[2020-07-11] MEDS ORDERED: WATER IV SCH (19:30)
[2020-07-11] MEDS ORDERED: SODIUM BICARBONATE IV SCH ×2 (19:30)
[2020-07-11] MEDS ORDERED: MULTIVITAMINS IV SCH ×2 (19:30)
[2020-07-11] MEDS ORDERED: [UNRECOGNIZED DRUG - OTHER] IV SCH (19:30)
[2020-07-11] MEDS ORDERED: THIAMINE HCL IV SCH (19:30)
[2020-07-11] MEDS: Mometasone 200 MCG/Formoterol 5 MCG 120 PUFF INHALER INH SCH (19:39)
[2020-07-11] MEDS: DULoxetine 60 MG CAP PO SCH (20:22)
[2020-07-11] MEDS: Thiamine HCl 200 MG/2 ML VIAL SLOW IVP SCH (20:22)
[2020-07-11] MEDS: Acetaminophen 325 MG TAB PO PRN (20:32)
[2020-07-11] MEDS: Timolol 0.5% Ophth Soln 5 ml Bottle EA EYE SCH (20:34)
[2020-07-11] MEDS: Latanoprost 0.005% Ophth Soln 2.5 ml Bottle EA EYE SCH (20:35)
[2020-07-11 22:59] LABS: Potassium, Urine 13.3 mmol/L
[2020-07-11 23:22] LABS: Anion Gap 31 mmol/L (10-20); BUN (Urea Nitrogen) 4 mg/dL (8.4-25.7); Calc. Creatinine Clearance 86 mL/min (70-130); Calcium 7.6 mg/dL (7.8-10.44); Carbon Dioxide 13 mmol/L (23-31); Chloride 99 mmol/L (98-107); Glucose 146 mg/dL (80-115); Potassium 3.3 mmol/L (3.5-5.1); Sodium 140 mmol/L (136-145)
[2020-07-12] MEDS ORDERED: Electrolyte Replacement Protocol FS PRN (00:15)
[2020-07-12] MEDS ORDERED: Potassium Chloride 40 MEQ in Premix Bag 1 BAG IVPB SCH (00:15)
[2020-07-12] MEDS ORDERED: Magnesium 2 GM/50 ML 2 GM in Premix Bag 1 BAG IVPB SCH ×2 (00:45→05:15)
[2020-07-12] MEDS ORDERED: Nitroglycerin 0.4 MG TAB (25 Tab Bottle) SL PRN (00:52)
[2020-07-12] MEDS ORDERED: Potassium Chloride 20 MEQ TAB PO SCH (01:00)
[2020-07-12] MEDS: Morphine 4 MG/ML VIAL SLOW IVP PRN ×4 (01:03→20:22)
[2020-07-12 02:07] LABS: Troponin I 0.022 ng/mL (< 0.028)
[2020-07-12] MEDS: Acetaminophen 325 MG TAB PO PRN (03:12)
[2020-07-12 04:45] LABS: #Lymphocytes 0.5 thou/uL (1.20-3.40); #Monocytes 1.1 thou/uL (0.11-0.59); #Neutrophils 6.2 thou/uL (1.40-6.50); %Monocytes 14.3 % (0.0-10.0); %Neutrophils 79.7 % (42.0-75.0); Hemoglobin 12.4 g/dL (14.0-18.0); Mean Corpuscular Hemoglobin 35.4 pg (27.0-31.0); Mean Platelet Volume 7.7 fL (7.4-10.4); Platelet Count 93 thou/uL (130-400); RBC Distribution Width 18.5 % (11.5-14.5); Red Blood Cell (RBC) Count 3.49 mill/uL (4.70-6.10); White Blood Cell (WBC) Count 7.8 thou/uL (4.8-10.8)
[2020-07-12 05:03] LABS: ALT (SGPT) 47 U/L (8-55); AST (SGOT) 97 U/L (5-34); Albumin 2.3 g/dL (3.4-4.8); Alkaline Phosphatase 275 U/L (40-110); Anion Gap 29 mmol/L (10-20); BUN (Urea Nitrogen) 4 mg/dL (8.4-25.7); Bilirubin, Total 1.1 mg/dL (0.2-1.2); Calc. Creatinine Clearance 83 mL/min (70-130); Calcium 7.3 mg/dL (7.8-10.44); Carbon Dioxide 15 mmol/L (23-31); Chloride 97 mmol/L (98-107); Globulin 3.7 g/dL (2.4-3.5); Glucose 257 mg/dL (80-115); Potassium 3.7 mmol/L (3.5-5.1); Sodium 137 mmol/L (136-145)
[2020-07-12] MEDS: Levothyroxine Sodium 100 MCG TAB PO SCH (05:18)
[2020-07-12] MEDS: Sodium Bicarbonate 150 MEQ in Dextrose 5% in Water 1,000 ML IV SCH ×2 (05:19→14:32)
[2020-07-12 07:15] LABS: Troponin I 0.028 ng/mL (< 0.028)
[2020-07-12] MEDS: Mometasone 200 MCG/Formoterol 5 MCG 120 PUFF INHALER INH SCH ×2 (08:02→19:05)
[2020-07-12] MEDS: carBAMazepine 200 MG TAB PO SCH ×3 (08:45→20:03)
[2020-07-12] MEDS: Gabapentin 400 MG CAP PO SCH ×3 (08:46→19:57)
[2020-07-12] MEDS: Folic Acid 1 MG TAB PO SCH (08:47)
[2020-07-12] MEDS: DULoxetine 60 MG CAP PO SCH ×2 (08:47→19:58)
[2020-07-12] MEDS: Timolol 0.5% Ophth Soln 5 ml Bottle EA EYE SCH ×2 (08:52→20:03)
[2020-07-12] MEDS: Carbidopa/Levodopa 10-100 mg Tablet PO SCH ×3 (10:44→20:03)
[2020-07-12 11:10] LABS: Troponin I 0.018 ng/mL (< 0.028)
[2020-07-12] MEDS: cefTRIAXone\\ROCEPHIN 2 GM in Sodium Chloride 0.9% 100 ML IVPB SCH (12:28)
[2020-07-12] MEDS ORDERED: Pantoprazole 40 MG VIAL IVP SCH (13:02)
[2020-07-12] MEDS ORDERED: Calcium Gluc 4.6 MEQ/10 ML (100 MG/ML) IVPB SCH (13:30)
[2020-07-12] MEDS: Thiamine HCl 200 MG/2 ML VIAL SLOW IVP SCH (17:40)
[2020-07-12] MEDS: Latanoprost 0.005% Ophth Soln 2.5 ml Bottle EA EYE SCH (20:11)
[2020-07-13] MEDS ORDERED: Multivit, Adult Inj 10 ML VIAL IV SCH
[2020-07-13] MEDS: Multivitamins, Adult 10 ML in Sodium Chloride 0.9% 500 ML IV SCH (00:57)
[2020-07-13] MEDS: Sodium Bicarbonate 150 MEQ in Dextrose 5% in Water 1,000 ML IV SCH ×3 (02:55→18:31)
[2020-07-13] MEDS: Morphine 4 MG/ML VIAL SLOW IVP PRN ×2 (04:37→21:05)
[2020-07-13 04:55] LABS: #Eosinphils 0.1 thou/uL (0.0-0.7); #Lymphocytes 0.7 thou/uL (1.20-3.40); #Monocytes 0.6 thou/uL (0.11-0.59); #Neutrophils 7.2 thou/uL (1.40-6.50); %Basophils 0.1 % (0.0-1.0); %Eosinophils 0.6 % (0.0-10.0); %Lymphocytes 8.5 % (21.0-51.0); %Monocytes 6.9 % (0.0-10.0); %Neutrophils 83.8 % (42.0-75.0); Hemoglobin 14.2 g/dL (14.0-18.0); Mean Corpuscular HGB CONC 33.9 g/dL (32.0-36.0); Mean Platelet Volume 7.6 fL (7.4-10.4); Platelet Count 60 thou/uL (130-400); RBC Distribution Width 18.4 % (11.5-14.5); Red Blood Cell (RBC) Count 4.05 mill/uL (4.70-6.10); White Blood Cell (WBC) Count 8.6 thou/uL (4.8-10.8)
[2020-07-13] MEDS: Levothyroxine Sodium 100 MCG TAB PO SCH (05:39)
[2020-07-13 05:48] LABS: Vitamin B12 Greater than 2000 pg/mL (211-911)
[2020-07-13] MEDS ORDERED: Magnesium 2 GM/50 ML 2 GM in Premix Bag 1 BAG IVPB SCH (06:30)
[2020-07-13] MEDS: Mometasone 200 MCG/Formoterol 5 MCG 120 PUFF INHALER INH SCH ×2 (07:38→19:14)
[2020-07-13] MEDS: Carbidopa/Levodopa 10-100 mg Tablet PO SCH ×3 (09:52→21:05)
[2020-07-13] MEDS: Gabapentin 400 MG CAP PO SCH ×3 (09:53→21:05)
[2020-07-13] MEDS: carBAMazepine 200 MG TAB PO SCH ×3 (09:54→21:05)
[2020-07-13] MEDS: DULoxetine 60 MG CAP PO SCH ×2 (09:54→21:05)
[2020-07-13] MEDS: Folic Acid 1 MG TAB PO SCH (09:54)
[2020-07-13] MEDS: cefTRIAXone\\ROCEPHIN 2 GM in Sodium Chloride 0.9% 100 ML IVPB SCH (11:35)
[2020-07-13 16:45] LABS: BUN (Urea Nitrogen) 4 mg/dL (8.4-25.7); Calc. Creatinine Clearance 98 mL/min (70-130); Calcium 7.3 mg/dL (7.8-10.44); Glucose 201 mg/dL (80-115)
[2020-07-13 16:54] LABS: Anion Gap 19 mmol/L (10-20); Carbon Dioxide 35 mmol/L (23-31); Chloride 79 mmol/L (98-107); Potassium 3.1 mmol/L (3.5-5.1); Sodium 130 mmol/L (136-145)
[2020-07-13] MEDS ORDERED: Potassium Chloride 20 MEQ TAB PO SCH (20:45)
[2020-07-13] MEDS: Latanoprost 0.005% Ophth Soln 2.5 ml Bottle EA EYE SCH (21:06)
[2020-07-13] MEDS: Timolol 0.5% Ophth Soln 5 ml Bottle EA EYE SCH (21:06)
[2020-07-14] MEDS: Multivitamins, Adult 10 ML in Sodium Chloride 0.9% 500 ML IV SCH (00:58)
[2020-07-14] MEDS: Levothyroxine Sodium 100 MCG TAB PO SCH (05:29)
[2020-07-14 05:52] LABS: Anion Gap 15 mmol/L (10-20); BUN (Urea Nitrogen) 5 mg/dL (8.4-25.7); Calc. Creatinine Clearance 109 mL/min (70-130); Calcium 7.7 mg/dL (7.8-10.44); Carbon Dioxide 34 mmol/L (23-31); Chloride 82 mmol/L (98-107); Glucose 138 mg/dL (80-115); Magnesium 1.7 mg/dL (1.6-2.6); Sodium 128 mmol/L (136-145)
[2020-07-14 05:57] LABS: Potassium 2.8 mmol/L (3.5-5.1)
[2020-07-14 06:01] LABS: Band 9 % (5-11); Eosinophils 1 % (0-10); Lymphocytes 6 % (21-51); MDiff Complete? YES; Macrocytosis SLIGHT = 6-15 cells (100X) (0-5/hpf); Mean Corpuscular Hemoglobin 34.2 pg (27.0-31.0); Mean Platelet Volume 8.8 fL (7.4-10.4); Monocytes 8 % (0-10); Neutrophil 75 % (42-75); Platelet Count 55 thou/uL (130-400); Platelet Morphology Comment Appears Decreased; RBC Distribution Width 17.7 % (11.5-14.5); Reactive Lymphocytes 1 % (0-10); Red Blood Cell (RBC) Count 4.11 mill/uL (4.70-6.10); White Blood Cell (WBC) Count 10.2 thou/uL (4.8-10.8)
[2020-07-14] MEDS ORDERED: Magnesium 2 GM/50 ML 2 GM in Premix Bag 1 BAG IVPB SCH (06:15)
[2020-07-14] MEDS: Potassium Chloride 20 MEQ TAB PO SCH ×2 (06:39→11:32)
[2020-07-14] MEDS: Mometasone 200 MCG/Formoterol 5 MCG 120 PUFF INHALER INH SCH ×2 (07:21→19:36)
[2020-07-14] MEDS: Carbidopa/Levodopa 10-100 mg Tablet PO SCH ×3 (08:34→21:31)
[2020-07-14] MEDS: acetaZOLAMIDE Sodium 500 mg Vial IVP SCH ×2 (08:34→08:37)
[2020-07-14] MEDS: carBAMazepine 200 MG TAB PO SCH ×3 (08:34→21:31)
[2020-07-14] MEDS: Gabapentin 400 MG CAP PO SCH ×3 (08:34→21:30)
[2020-07-14] MEDS: DULoxetine 60 MG CAP PO SCH ×2 (08:36→21:33)
[2020-07-14] MEDS: Folic Acid 1 MG TAB PO SCH (08:37)
[2020-07-14] MEDS: Timolol 0.5% Ophth Soln 5 ml Bottle EA EYE SCH ×2 (08:41→21:32)
[2020-07-14] MEDS: cefTRIAXone\\ROCEPHIN 2 GM in Sodium Chloride 0.9% 100 ML IVPB SCH (13:54)
[2020-07-14] MEDS: Metoprolol Tartrate 25 MG TAB PO SCH (21:31)
[2020-07-14] MEDS: Latanoprost 0.005% Ophth Soln 2.5 ml Bottle EA EYE SCH (21:32)
[2020-07-14] MEDS ORDERED: Famotidine 20 MG TAB PO SCH (23:30)
[2020-07-15] MEDS: Morphine 4 MG/ML VIAL SLOW IVP PRN (00:35)
[2020-07-15] MEDS: Multivitamins, Adult 10 ML in Sodium Chloride 0.9% 500 ML IV SCH (00:35)
[2020-07-15] MEDS: Levothyroxine Sodium 100 MCG TAB PO SCH (06:00)
[2020-07-15 06:13] LABS: Anion Gap 12 mmol/L (10-20); BUN (Urea Nitrogen) 8 mg/dL (8.4-25.7); Calc. Creatinine Clearance 115 mL/min (70-130); Calcium 7.9 mg/dL (7.8-10.44); Carbon Dioxide 25 mmol/L (23-31); Chloride 93 mmol/L (98-107); Glucose 155 mg/dL (80-115); Potassium 3.3 mmol/L (3.5-5.1); Sodium 127 mmol/L (136-145)
[2020-07-15] MEDS ORDERED: Magnesium 2 GM/50 ML 2 GM in Premix Bag 1 BAG IVPB SCH (06:30)
[2020-07-15] MEDS ORDERED: Potassium Chloride 20 MEQ TAB PO SCH (06:30)
[2020-07-15 06:47] LABS: Band 16 % (5-11); Eosinophils 1 % (0-10); Lymphocytes 10 % (21-51); MDiff Complete? YES; Mean Corpuscular HGB CONC 32.4 g/dL (32.0-36.0); Mean Platelet Volume 9.4 fL (7.4-10.4); Monocytes 11 % (0-10); Neutrophil 62 % (42-75); Platelet Count 59 thou/uL (130-400); Platelet Morphology Comment Appears Decreased; RBC Distribution Width 17.5 % (11.5-14.5); Red Blood Cell (RBC) Count 4.41 mill/uL (4.70-6.10)
[2020-07-15] MEDS: Mometasone 200 MCG/Formoterol 5 MCG 120 PUFF INHALER INH SCH ×2 (07:19→19:21)
[2020-07-15] MEDS: carBAMazepine 200 MG TAB PO SCH ×3 (08:55→22:38)
[2020-07-15] MEDS: DULoxetine 60 MG CAP PO SCH ×2 (08:56→22:27)
[2020-07-15] MEDS: Folic Acid 1 MG TAB PO SCH (08:56)
[2020-07-15] MEDS: Carbidopa/Levodopa 10-100 mg Tablet PO SCH ×3 (08:56→22:27)
[2020-07-15] MEDS: Famotidine 20 MG TAB PO SCH ×2 (08:56→22:27)
[2020-07-15] MEDS: Gabapentin 400 MG CAP PO SCH ×3 (08:57→22:28)
[2020-07-15] MEDS: Metoprolol Tartrate 25 MG TAB PO SCH ×2 (08:58→22:27)
[2020-07-15] MEDS: Timolol 0.5% Ophth Soln 5 ml Bottle EA EYE SCH ×2 (08:59→22:31)
[2020-07-15] MEDS ORDERED: Metoprolol Tartrate 25 MG TAB PO SCH ×2 (10:15→10:51)
[2020-07-15] MEDS: Latanoprost 0.005% Ophth Soln 2.5 ml Bottle EA EYE SCH (22:32)
[2020-07-16 05:05] LABS: #Eosinphils 0.1 thou/uL (0.0-0.7); #Lymphocytes 0.8 thou/uL (1.20-3.40); #Monocytes 1.1 thou/uL (0.11-0.59); #Neutrophils 6.5 thou/uL (1.40-6.50); %Basophils 0.4 % (0.0-1.0); %Lymphocytes 9.8 % (21.0-51.0); %Monocytes 12.6 % (0.0-10.0); %Neutrophils 76.3 % (42.0-75.0); Hemoglobin 13.6 g/dL (14.0-18.0); Mean Corpuscular HGB CONC 33.7 g/dL (32.0-36.0); Mean Corpuscular Hemoglobin 34.8 pg (27.0-31.0); Mean Platelet Volume 9.3 fL (7.4-10.4); Platelet Count 60 thou/uL (130-400); RBC Distribution Width 17.3 % (11.5-14.5); Red Blood Cell (RBC) Count 3.91 mill/uL (4.70-6.10); White Blood Cell (WBC) Count 8.5 thou/uL (4.8-10.8)
[2020-07-16 05:19] LABS: Anion Gap 10 mmol/L (10-20); BUN (Urea Nitrogen) 9 mg/dL (8.4-25.7); Calc. Creatinine Clearance 132 mL/min (70-130); Calcium 7.8 mg/dL (7.8-10.44); Carbon Dioxide 25 mmol/L (23-31); Chloride 96 mmol/L (98-107); Glucose 119 mg/dL (80-115); Magnesium 1.8 mg/dL (1.6-2.6); Potassium 3.7 mmol/L (3.5-5.1); Sodium 127 mmol/L (136-145)
[2020-07-16] MEDS: Levothyroxine Sodium 100 MCG TAB PO SCH (05:57)
[2020-07-16] MEDS ORDERED: Magnesium 2 GM/50 ML 2 GM in Premix Bag 1 BAG IVPB SCH (06:30)
[2020-07-16] MEDS: Mometasone 200 MCG/Formoterol 5 MCG 120 PUFF INHALER INH SCH ×2 (07:09→18:41)
[2020-07-16] MEDS: Famotidine 20 MG TAB PO SCH ×2 (08:23→21:15)
[2020-07-16] MEDS: Carbidopa/Levodopa 10-100 mg Tablet PO SCH ×3 (08:23→21:14)
[2020-07-16] MEDS: Multivitamin W/ Minerals 1 TAB PO SCH (08:23)
[2020-07-16] MEDS: Folic Acid 1 MG TAB PO SCH (08:24)
[2020-07-16] MEDS: Gabapentin 400 MG CAP PO SCH ×3 (08:24→21:14)
[2020-07-16] MEDS: DULoxetine 60 MG CAP PO SCH ×2 (08:24→21:15)
[2020-07-16] MEDS: Metoprolol Tartrate 25 MG TAB PO SCH ×2 (08:24→22:42)
[2020-07-16] MEDS: carBAMazepine 200 MG TAB PO SCH ×3 (08:25→21:15)
[2020-07-16] MEDS: Timolol 0.5% Ophth Soln 5 ml Bottle EA EYE SCH ×2 (08:25→22:42)
[2020-07-16] MEDS ORDERED: Sodium Chloride 0.9% 500 ML IV SCH (17:30)
[2020-07-16] MEDS ORDERED: Tolvaptan 15 MG TAB PO SCH (20:15)
[2020-07-16] MEDS ORDERED: TOLVAPTAN 30 MG TAB PO SCH (20:30)
[2020-07-16] MEDS: Latanoprost 0.005% Ophth Soln 2.5 ml Bottle EA EYE SCH (21:14)
[2020-07-17 05:33] LABS: Band 3 % (5-11); Hemoglobin 13.3 g/dL (14.0-18.0); Lymphocytes 12 % (21-51); MDiff Complete? YES; Mean Corpuscular HGB CONC 32.8 g/dL (32.0-36.0); Mean Platelet Volume 8.7 fL (7.4-10.4); Metamyelocyte 1 % (0-0); Monocytes 13 % (0-10); Myelocyte 1 % (0-0); Neutrophil 68 % (42-75); Platelet Count 94 thou/uL (130-400); Platelet Morphology Comment Appears Decreased; RBC Distribution Width 17.1 % (11.5-14.5); Reactive Lymphocytes 2 % (0-10); Red Blood Cell (RBC) Count 3.92 mill/uL (4.70-6.10); White Blood Cell (WBC) Count 8.7 thou/uL (4.8-10.8)
[2020-07-17 05:43] LABS: Anion Gap 12 mmol/L (10-20); BUN (Urea Nitrogen) 9 mg/dL (8.4-25.7); Calc. Creatinine Clearance 114 mL/min (70-130); Calcium 8.3 mg/dL (7.8-10.44); Carbon Dioxide 21 mmol/L (23-31); Chloride 101 mmol/L (98-107); Glucose 120 mg/dL (80-115); Potassium 3.4 mmol/L (3.5-5.1); Sodium 131 mmol/L (136-145)
[2020-07-17] MEDS: Levothyroxine Sodium 100 MCG TAB PO SCH (06:09)
[2020-07-17] MEDS ORDERED: Potassium Chloride 20 MEQ TAB PO SCH (06:30)
[2020-07-17] MEDS: Mometasone 200 MCG/Formoterol 5 MCG 120 PUFF INHALER INH SCH ×2 (07:46→19:33)
[2020-07-17] MEDS ORDERED: Lorazepam 2 MG/ML VIAL SLOW IVP SCH (08:00)
[2020-07-17] MEDS: Multivitamin W/ Minerals 1 TAB PO SCH (08:20)
[2020-07-17] MEDS: carBAMazepine 200 MG TAB PO SCH ×3 (08:20→20:11)
[2020-07-17] MEDS: Famotidine 20 MG TAB PO SCH ×2 (08:20→20:11)
[2020-07-17] MEDS: Carbidopa/Levodopa 10-100 mg Tablet PO SCH ×3 (08:20→20:11)
[2020-07-17] MEDS: DULoxetine 60 MG CAP PO SCH ×2 (08:20→20:11)
[2020-07-17] MEDS: Metoprolol Tartrate 25 MG TAB PO SCH ×2 (08:20→20:11)
[2020-07-17] MEDS: Gabapentin 400 MG CAP PO SCH ×3 (08:20→20:11)
[2020-07-17] MEDS: Timolol 0.5% Ophth Soln 5 ml Bottle EA EYE SCH ×2 (08:21→20:10)
[2020-07-17] MEDS: Folic Acid 1 MG TAB PO SCH (08:21)
[2020-07-17] MEDS ORDERED: Lorazepam 2 MG/ML VIAL SLOW IVP PRN (14:49)
[2020-07-17] MEDS: Potassium Chloride 20 MEQ TAB PO SCH (19:24)
[2020-07-17] MEDS: Latanoprost 0.005% Ophth Soln 2.5 ml Bottle EA EYE SCH (20:10)
[2020-07-18] MEDS: Levothyroxine Sodium 100 MCG TAB PO SCH (05:09)
[2020-07-18] MEDS: Mometasone 200 MCG/Formoterol 5 MCG 120 PUFF INHALER INH SCH (07:01)
[2020-07-18 07:42] LABS: Hemoglobin 13.1 g/dL (14.0-18.0); Mean Corpuscular HGB CONC 32.8 g/dL (32.0-36.0); Mean Corpuscular Hemoglobin 34.3 pg (27.0-31.0); Mean Platelet Volume 8.7 fL (7.4-10.4); Platelet Count 136 thou/uL (130-400); RBC Distribution Width 17.2 % (11.5-14.5); Red Blood Cell (RBC) Count 3.83 mill/uL (4.70-6.10); White Blood Cell (WBC) Count 8.2 thou/uL (4.8-10.8)
[2020-07-18 07:51] LABS: Anion Gap 11 mmol/L (10-20); BUN (Urea Nitrogen) 8 mg/dL (8.4-25.7); Calc. Creatinine Clearance 117 mL/min (70-130); Calcium 8.4 mg/dL (7.8-10.44); Carbon Dioxide 23 mmol/L (23-31); Chloride 102 mmol/L (98-107); Glucose 96 mg/dL (80-115); Magnesium 1.6 mg/dL (1.6-2.6); Potassium 4.2 mmol/L (3.5-5.1); Sodium 132 mmol/L (136-145)
[2020-07-18 07:54] LABS: Anisocytosis SLIGHT = 6-15 cells (100X) (0-5/hpf); Band 4 % (5-11); Eosinophils 2 % (0-10); Lymphocytes 10 % (21-51); MDiff Complete? YES; Monocytes 25 % (0-10); Neutrophil 55 % (42-75); Platelet Morphology Comment Appears Adequate; Reactive Lymphocytes 4 % (0-10)
[2020-07-18] MEDS ORDERED: Ferrous Sulfate 325 MG TAB PO SCH (08:00)
[2020-07-18] MEDS: Gabapentin 400 MG CAP PO SCH ×2 (08:34→16:08)
[2020-07-18] MEDS: carBAMazepine 200 MG TAB PO SCH ×2 (08:34→16:08)
[2020-07-18] MEDS: DULoxetine 60 MG CAP PO SCH (08:35)
[2020-07-18] MEDS: Potassium Chloride 20 MEQ TAB PO SCH (08:35)
[2020-07-18] MEDS: Carbidopa/Levodopa 10-100 mg Tablet PO SCH ×2 (08:35→16:08)
[2020-07-18] MEDS: Folic Acid 1 MG TAB PO SCH (08:36)
[2020-07-18] MEDS: Timolol 0.5% Ophth Soln 5 ml Bottle EA EYE SCH (08:36)
[2020-07-18] MEDS: Metoprolol Tartrate 25 MG TAB PO SCH (08:36)
[2020-07-18] MEDS: Multivitamin W/ Minerals 1 TAB PO SCH (08:36)
[2020-07-18] MEDS: Famotidine 20 MG TAB PO SCH (08:36)
[2020-07-18] MEDS ORDERED: Magnesium 2 GM/50 ML 2 GM in Premix Bag 1 BAG IVPB SCH (10:00)
[2020-07-18 13:28] VITALS: BP 129/72; TEMP 98.8
[2020-07-19] MEDS ORDERED: Magnesium Oxide 400 MG TAB PO SCH (09:00)
== END 2020-07-18 16:50 | DRG 871 ==
LOC: ERS 11:46 → CCU 14:23 → 2NO 07-12 16:57 → ONC 07-17 17:28
PROVIDERS: ADMIT Internal Medicine; ATTEND Family Medicine
PROC: 0DJ08ZZ Inspection of Upper Intestinal Tract, Via Natural or Artificial Opening Endoscopic (ICD-10-PCS; principal; 2020-07-11)
PROC: 30233N1 Transfusion of Nonautologous Red Blood Cells into Peripheral Vein, Percutaneous Approach (ICD-10-PCS; 2020-07-11)
PROC: 30233R1 Transfusion of Nonautologous Platelets into Peripheral Vein, Percutaneous Approach (ICD-10-PCS; 2020-07-11)
DX: A41.9 Sepsis, unspecified organism (principal); E43 Unspecified severe protein-calorie malnutrition; R57.8 Other shock; D62 Acute posthemorrhagic anemia; E87.2 Acidosis; K76.6 Portal hypertension; K92.2 Gastrointestinal hemorrhage, unspecified; F10.139 Alcohol abuse with withdrawal, unspecified; I47.2 Ventricular tachycardia; E87.3 Alkalosis; E22.2 Syndrome of inappropriate secretion of antidiuretic hormone; J96.11 Chronic respiratory failure with hypoxia; J44.9 Chronic obstructive pulmonary disease, unspecified; I10 Essential (primary) hypertension; E53.8 Deficiency of other specified B group vitamins; G89.4 Chronic pain syndrome; G20 Parkinson's disease; G40.909 Epilepsy, unspecified, not intractable, without status epilepticus; E03.9 Hypothyroidism, unspecified; F32.9 Major depressive disorder, single episode, unspecified; F41.9 Anxiety disorder, unspecified; F17.210 Nicotine dependence, cigarettes, uncomplicated; K44.9 Diaphragmatic hernia without obstruction or gangrene; K31.89 Other diseases of stomach and duodenum; K29.70 Gastritis, unspecified, without bleeding; I48.91 Unspecified atrial fibrillation; G62.9 Polyneuropathy, unspecified; I48.0 Paroxysmal atrial fibrillation; L89.152 Pressure ulcer of sacral region, stage 2; E87.6 Hypokalemia; Z95.0 Presence of cardiac pacemaker
CPT/HCPCS: 0240U; 36415; 36416; 36430; 36556; 51701; 70450; 71045; 80048; 80053; 80074; 81003; 81015; 82274; 82436; 82607; 82728; 82746; 83540; 83605; 83690; 83735; 83880; 83935; 84133; 84300; 84484; 85025; 85379; 85610; 85730; 86850; 86900; 86901; 87040; 87086; 87389; 93005; 93010; 94640; 96365; 96366; 96374; 96375; 96376; 99292; C9113; J0696; J1100; J1120; J2001; J2060; J2250; J2270; J2354; J2405; J2704; J3010; J3370; J3411; J3475; J3480; J3490; J7030; J7050; J7070; J7620; P9016; P9035

== ENCOUNTER 2020-11-09 10:58 | Inpatient (IN) | payer MEDICARE, MEDICAID, OTHER ==
[~2020-11-09 10:58] MED LIST: Iopamidol-370 76% 500 ML 1 ML ONE
[2020-11-09] MEDS ORDERED: Rocuronium Bromide 10 MG/ML (10ML VIAL) ONE (11:08)
[2020-11-09] MEDS ORDERED: Fentanyl 100 MCG/2 ML VIAL ONE (11:24)
[2020-11-09] MEDS ORDERED: fentaNYL Citrate/PF 2,000 MCG in Sodium Chloride 0.9% 60 ML IV SCH (12:00)
[2020-11-09 12:10] LABS: Acetaminophen Less than 6.0 mcg/mL (10.0-30.0); Alcohol 89 mg/dL (Less than 10); Salicylate Less than 8.0 mg/dL (15.0-30.0)
[2020-11-09 12:11] LABS: Amphetamine Not Detected (NotDetected); Barbiturates Screen Not Detected (NotDetected); Benzodiazepine Screen Not Detected (NotDetected); Cocaine Metabolite Screen Not Detected (NotDetected); Methadone Not Detected (NotDetected); Methamphetamine Not Detected (NotDetected); Opiate Screen Not Detected (NotDetected); Oxycodone Screen Not Detected (NotDetected); Phencyclidine (PCP) Not Detected (NotDetected); THC/Cannabinoid Screen Not Detected (NotDetected); Tricyclic Screen Not Detected (NotDetected)
[2020-11-09 12:13] LABS: Hemoglobin 7.8 g/dL (14.0-18.0); Mean Corpuscular HGB CONC 31.6 g/dL (32.0-36.0); Mean Corpuscular Hemoglobin 35.5 pg (27.0-31.0); Mean Platelet Volume 7.9 fL (7.4-10.4); Platelet Count 65 thou/uL (130-400); RBC Distribution Width 15.7 % (11.5-14.5); Red Blood Cell (RBC) Count 2.21 mill/uL (4.70-6.10); White Blood Cell (WBC) Count 7.1 thou/uL (4.8-10.8)
[2020-11-09 12:21] LABS: INR-International Normal Ratio 1.4; Prothrombin Time 16.8 sec (12.0-14.7)
[2020-11-09 12:22] LABS: PTT 45.8 sec (22.9-36.1)
[2020-11-09 12:22] LABS: SARS-CoV-2 NAA Rapid Test Not Detected (NotDetected)
[2020-11-09 12:25] LABS: Bacteria/HPF None Seen HPF (None Seen); Bilirubin Negative (Negative); Blood, Urine 1+ (Negative); Clarity Clear (Clear); Glucose, Urine (Dipstick) Normal (Negative); Ketone, Urine Greater than 150 mg/dL (Negative); Leukocyte Negative Leu/uL (Negative); Nitrite Negative (Negative); Protein, Urine (Dipstick) 30 mg/dL (Neg-Trace); RBC/HPF 0-3 HPF (0-3); Specific Gravity, Urine 1.016 (1.002-1.036); Squamous Epithelial 0-3 HPF (0-3); Urobilinogen 6 mg/dL (Less than 2); WBC/HPF 0-3 HPF (0-3)
[2020-11-09] MEDS ORDERED: Norepinephrine 8 MG/0.9% NS 250 ML ONE (12:28)
[2020-11-09 12:30] LABS: Band 15 % (5-11); Large Platelets SLIGHT; Lymphocytes 27 % (21-51); MDiff Complete? YES; Macrocytosis MODERATE=16-30 cells (100X) (0-5/hpf); Metamyelocyte 2 % (0-0); Monocytes 2 % (0-10); Myelocyte 3 % (0-0); Neutrophil 51 % (42-75); Nucleated RBC 1 % (0); Platelet Morphology Comment Appears Decreased; Polychromasia SLIGHT = 2-3 cells (100X) (0-2/hpf)
[2020-11-09 12:30] LABS: Analyzer IN Cardio ER; Base Excess (BEa) -20.5 mEq/L (-2.0 to +3.0); CO2 Tension 28.7 mmHg (35.0-45.0); Calcium, Ionized (arterial) 1.05 mmol/L (1.12-1.30); Hemoglobin (Hb) 7.5 g/dL (14.0-18.0); Potassium - ABG Lab 3.26 mmol/L (3.70-5.30)
[2020-11-09 12:31] LABS: ALV-art Gradient 196.925 mmHg (0-20); Puncture Site RBA; pH, Arterial 7.07 (7.35-7.45)
[2020-11-09 12:35] LABS: ALT (SGPT) 176 U/L (8-55); AST (SGOT) 778 U/L (5-34); Albumin 1.8 g/dL (3.4-4.8); Alkaline Phosphatase 370 U/L (40-110); BUN (Urea Nitrogen) 8 mg/dL (8.4-25.7); Bilirubin, Total 2.9 mg/dL (0.2-1.2); Calc. Creatinine Clearance 0 mL/min (70-130); Calcium 6.8 mg/dL (7.8-10.44); Chloride 100 mmol/L (98-107); Globulin 3.6 g/dL (2.4-3.5); Glucose 82 mg/dL (80-115); Lipase 25 U/L (8-78); Potassium 3.4 mmol/L (3.5-5.1); Protein, Total 5.4 g/dL (5.8-8.1); Sodium 135 mmol/L (136-145)
[2020-11-09 12:59] LABS: Carbon Dioxide Less than 8 mmol/L (23-31)
[2020-11-09] MEDS ORDERED: Sodium Bicarb 50 MEQ/50 ML Abboject 8.4% SYRINGE ONE (13:06)
[2020-11-09] MEDS ORDERED: Pantoprazole 40 MG VIAL ONE (13:06)
[2020-11-09] MEDS ORDERED: Cefepime 2 GM VIAL ONE (13:06)
[2020-11-09] MEDS ORDERED: Calcium Gluc 4.6 MEQ/10 ML (100 MG/ML) ONE (13:08)
[2020-11-09] MEDS ORDERED: levETIRAcetam 2,000 MG in Sodium Chloride 0.9% 100 ML IVPB SCH (14:00)
[2020-11-09] MEDS ORDERED: Octreotide Acetate 100 MCG/ML VIAL SLOW IVP SCH (14:00)
[2020-11-09] MEDS ORDERED: VANCOMYCIN 1.25 GM/250 ML BAG 1.25 GM in Premix Bag 1 BAG IVPB SCH (14:00)
[2020-11-09] MEDS ORDERED: Octreotide Acetate 100 MCG/ML VIAL ONE (14:50)
[2020-11-09] MEDS ORDERED: Electrolyte Replacement Protocol 1 EACH FS PRN (15:14)
[2020-11-09] MEDS ORDERED: Ventilator Sedation Protocol 1 EACH FS PRN (15:15)
[2020-11-09] MEDS ORDERED: VANCOMYCIN IVPB PRN (15:44)
[2020-11-09 15:58] LABS: Lactic Acid 3.3 mmol/L (0.5-2.2)
[2020-11-09] MEDS ORDERED: Thiamine 100 MG TAB PO SCH (16:00)
[2020-11-09 17:02] LABS: Hemoglobin 8.3 g/dL (14.0-18.0)
[2020-11-09 17:22] LABS: Magnesium 1.6 mg/dL (1.6-2.6); Phosphorus 4.1 mg/dL (2.3-4.7)
[2020-11-09 17:25] LABS: ALT (SGPT) 235 U/L (8-55); AST (SGOT) 1188 U/L (5-34); Albumin 1.9 g/dL (3.4-4.8); Alkaline Phosphatase 400 U/L (40-110); Anion Gap 27 mmol/L (10-20); BUN (Urea Nitrogen) 8 mg/dL (8.4-25.7); Bilirubin, Total 4.5 mg/dL (0.2-1.2); CK (CPK) 1312 U/L (30-200); Calc. Creatinine Clearance 0 mL/min (70-130); Calcium 7.3 mg/dL (7.8-10.44); Carbon Dioxide 14 mmol/L (23-31); Chloride 101 mmol/L (98-107); Globulin 3.5 g/dL (2.4-3.5); Glucose 89 mg/dL (80-115); Potassium 3.6 mmol/L (3.5-5.1); Protein, Total 5.4 g/dL (5.8-8.1); Sodium 138 mmol/L (136-145)
[2020-11-09] MEDS ORDERED: Propofol 1,000 MG/100 ML VIAL IV PRN (17:30)
[2020-11-09] MEDS ORDERED: DISCONTINUE PREVIOUS NARCOTIC PAIN MEDICATIONS AND BENZODIAZEPINES FS SCH (17:30)
[2020-11-09] MEDS ORDERED: Morphine 2 MG/ML VIAL SLOW IVP PRN (17:30)
[2020-11-09] MEDS ORDERED: Propofol BOLUS 1,000 MG/100 ML VIAL IV PRN (17:30)
[2020-11-09] MEDS ORDERED: Fentanyl BOLUS 250 ML IVPB PRN (17:30)
[2020-11-09 17:36] LABS: Hemoglobin 8.4 g/dL (14.0-18.0); Mean Corpuscular HGB CONC 34.5 g/dL (32.0-36.0); Mean Corpuscular Hemoglobin 36.6 pg (27.0-31.0); Mean Platelet Volume 8.1 fL (7.4-10.4); Platelet Count 43 thou/uL (130-400); RBC Distribution Width 16.6 % (11.5-14.5); Red Blood Cell (RBC) Count 2.28 mill/uL (4.70-6.10); White Blood Cell (WBC) Count 11.1 thou/uL (4.8-10.8)
[2020-11-09 17:45] LABS: Carbamazepine-Tegretol Less than 1.9 ug/mL (4.0-12.0)
[2020-11-09 18:02] LABS: Band 32 % (5-11); Lymphocytes 3 % (21-51); MDiff Complete? YES; Macrocytosis SLIGHT = 6-15 cells (100X) (0-5/hpf); Monocytes 4 % (0-10); Neutrophil 57 % (42-75); Platelet Morphology Comment Appears Decreased; Polychromasia SLIGHT = 2-3 cells (100X) (0-2/hpf); Reactive Lymphocytes 2 % (0-10)
[2020-11-09] MEDS: Lactated Ringer's 1,000 ML IV SCH ×2 (18:50→22:45)
[2020-11-09 19:02] LABS: Base Excess (BEa) -8.5 mEq/L (-2.0 to +3.0); CO2 Tension 34.8 mmHg (35.0-45.0); Calcium, Ionized (arterial) 1.06 mmol/L (1.12-1.30); Carboxyhemoglobin (COHb) 0.8 gm% (0.0-3.0); Hemoglobin (Hb) 8.6 g/dL (14.0-18.0); O2 Tension (PaO2), arterial 85.2 mmHg (> 80.0); Potassium - ABG Lab 3.61 mmol/L (3.70-5.30); Puncture Site LBA; pH, Arterial 7.31 (7.35-7.45)
[2020-11-09] MEDS: Pantoprazole 40 MG VIAL IVP SCH (21:02)
[2020-11-09] MEDS: Albumin 25% 25 GM/100 ML BOT IVPB SCH (21:22)
[2020-11-10 00:49] LABS: Hemoglobin 7.6 g/dL (14.0-18.0)
[2020-11-10] MEDS: Cefepime 2 GM in Sodium Chloride 0.9% 100 ML IVPB SCH ×2 (01:22→13:18)
[2020-11-10] MEDS: Vancomycin 1 GM in Premix Bag 1 BAG IVPB SCH ×2 (01:22→13:18)
[2020-11-10 04:54] LABS: Hemoglobin 7.5 g/dL (14.0-18.0); Mean Corpuscular HGB CONC 33.7 g/dL (32.0-36.0); Mean Corpuscular Hemoglobin 35.4 pg (27.0-31.0); Mean Platelet Volume 8.2 fL (7.4-10.4); Platelet Count 38 thou/uL (130-400); RBC Distribution Width 17.4 % (11.5-14.5); Red Blood Cell (RBC) Count 2.11 mill/uL (4.70-6.10)
[2020-11-10 05:00] LABS: ALT (SGPT) 236 U/L (8-55); AST (SGOT) 1267 U/L (5-34); Albumin 2.1 g/dL (3.4-4.8); Alkaline Phosphatase 347 U/L (40-110); Anion Gap 18 mmol/L (10-20); BUN (Urea Nitrogen) 9 mg/dL (8.4-25.7); Bilirubin, Total 5.5 mg/dL (0.2-1.2); Calc. Creatinine Clearance 66 mL/min (70-130); Calcium 7.5 mg/dL (7.8-10.44); Carbon Dioxide 21 mmol/L (23-31); Chloride 103 mmol/L (98-107); Globulin 3.1 g/dL (2.4-3.5); Glucose 110 mg/dL (80-115); Magnesium 1.7 mg/dL (1.6-2.6); Protein, Total 5.2 g/dL (5.8-8.1); Sodium 139 mmol/L (136-145)
[2020-11-10 05:19] LABS: Band 21 % (5-11); Lymphocytes 1 % (21-51); MDiff Complete? YES; Macrocytosis SLIGHT = 6-15 cells (100X) (0-5/hpf); Neutrophil 78 % (42-75); Platelet Morphology Comment Appears Decreased
[2020-11-10] MEDS: Albumin 25% 25 GM/100 ML BOT IVPB SCH ×3 (05:23→21:04)
[2020-11-10] MEDS: Lactated Ringer's 1,000 ML IV SCH ×3 (05:23→19:54)
[2020-11-10] MEDS ORDERED: Magnesium 2 GM/50 ML 2 GM in Premix Bag 1 BAG IVPB SCH (06:00)
[2020-11-10] MEDS ORDERED: Potassium Chloride 40 MEQ in Premix Bag 1 BAG IVPB SCH (06:00)
[2020-11-10 07:18] LABS: INR-International Normal Ratio 1.9; Prothrombin Time 21.9 sec (12.0-14.7)
[2020-11-10 07:19] LABS: PTT 37.6 sec (22.9-36.1)
[2020-11-10] MEDS: levETIRAcetam in NS 500 MG in Premix Bag 1 BAG IVPB SCH ×2 (08:20→20:55)
[2020-11-10 08:21] LABS: Actual Bicarbonate (HCO3a) 23.7 mEq/L (22-28); Base Excess (BEa) 0.3 mEq/L (-2.0 to +3.0); CO2 Tension 32.8 mmHg (35.0-45.0); Calcium, Ionized (arterial) 1.08 mmol/L (1.12-1.30); Hemoglobin (Hb) 7.5 g/dL (14.0-18.0); O2 Tension (PaO2), arterial 103.1 mmHg (> 80.0); Potassium - ABG Lab 2.68 mmol/L (3.70-5.30); pH, Arterial 7.48 (7.35-7.45)
[2020-11-10] MEDS: Folic Acid 1 MG TAB PO SCH (08:21)
[2020-11-10] MEDS: Pantoprazole 40 MG VIAL IVP SCH ×2 (08:21→20:54)
[2020-11-10 09:29] LABS: Puncture Site RRA
[2020-11-10] MEDS ORDERED: Thiamine HCl 200 MG/2 ML VIAL IM SCH (11:30)
[2020-11-10] MEDS ORDERED: Fentanyl CADD 100 ML ONE (16:47)
[2020-11-10 20:29] LABS: Hemoglobin 7.7 g/dL (14.0-18.0)
[2020-11-11] MEDS: Norepinephrine 8 MG/0.9% NS 250 ML IVPB PRN (00:32)
[2020-11-11] MEDS: Cefepime 2 GM in Sodium Chloride 0.9% 100 ML IVPB SCH ×2 (00:33→12:57)
[2020-11-11 01:53] LABS: Vancomycin, Trough 23.3 ug/mL
[2020-11-11] MEDS: Vancomycin 1 GM in Premix Bag 1 BAG IVPB SCH (02:15)
[2020-11-11] MEDS: Lactated Ringer's 1,000 ML IV SCH ×3 (02:56→19:59)
[2020-11-11 04:28] LABS: INR-International Normal Ratio 2.7; Prothrombin Time 28.9 sec (12.0-14.7)
[2020-11-11 04:29] LABS: PTT 42.4 sec (22.9-36.1)
[2020-11-11 04:43] LABS: ALT (SGPT) 427 U/L (8-55); AST (SGOT) 2515 U/L (5-34); Albumin 2.6 g/dL (3.4-4.8); Alkaline Phosphatase 305 U/L (40-110); Anion Gap 14 mmol/L (10-20); BUN (Urea Nitrogen) 8 mg/dL (8.4-25.7); Bilirubin, Total 5.4 mg/dL (0.2-1.2); Calc. Creatinine Clearance 95 mL/min (70-130); Calcium 7.9 mg/dL (7.8-10.44); Carbon Dioxide 24 mmol/L (23-31); Chloride 105 mmol/L (98-107); Globulin 2.7 g/dL (2.4-3.5); Glucose 66 mg/dL (80-115); Protein, Total 5.3 g/dL (5.8-8.1); Sodium 140 mmol/L (136-145)
[2020-11-11 04:52] LABS: Potassium 2.7 mmol/L (3.5-5.1)
[2020-11-11] MEDS: Potassium Chloride 40 MEQ in Premix Bag 1 BAG IVPB SCH ×2 (05:12→08:53)
[2020-11-11] MEDS: Albumin 25% 25 GM/100 ML BOT IVPB SCH ×2 (05:13→14:57)
[2020-11-11 05:14] LABS: Hemoglobin 7.3 g/dL (14.0-18.0); Mean Corpuscular HGB CONC 33.9 g/dL (32.0-36.0); Mean Corpuscular Hemoglobin 35.2 pg (27.0-31.0); Mean Platelet Volume 9.1 fL (7.4-10.4); Platelet Count 24 thou/uL (130-400); RBC Distribution Width 17.5 % (11.5-14.5); Red Blood Cell (RBC) Count 2.07 mill/uL (4.70-6.10); White Blood Cell (WBC) Count 8.2 thou/uL (4.8-10.8)
[2020-11-11 05:22] LABS: Band 35 % (5-11); Eosinophils 2 % (0-10); Lymphocytes 11 % (21-51); MDiff Complete? YES; Myelocyte 1 % (0-0); Neutrophil 50 % (42-75); Nucleated RBC 1 % (0); Platelet Morphology Comment Appears Decreased
[2020-11-11 06:29] LABS: Magnesium 1.9 mg/dL (1.6-2.6); Phosphorus Less than 1.0 mg/dL (2.3-4.7)
[2020-11-11] MEDS ORDERED: Lactated Ringer's 1,000 ML IV SCH ×2 (06:34→16:15)
[2020-11-11] MEDS ORDERED: Magnesium 2 GM/50 ML 2 GM in Premix Bag 1 BAG IVPB SCH (06:45)
[2020-11-11] MEDS ORDERED: Potassium Phosphate 30 MMOL in Sodium Chloride 0.9% 250 ML 250 ML IVPB SCH (08:00)
[2020-11-11 08:10] LABS: Reticulocyte Count 2.4 % (0.5-1.5)
[2020-11-11] MEDS: Multivitamin W/ Minerals 1 TAB PO SCH (08:36)
[2020-11-11] MEDS: levETIRAcetam in NS 500 MG in Premix Bag 1 BAG IVPB SCH ×2 (08:36→20:03)
[2020-11-11] MEDS: Magnesium Oxide 400 MG TAB PO SCH (08:36)
[2020-11-11] MEDS: Folic Acid 1 MG TAB PO SCH (08:36)
[2020-11-11] MEDS: Pantoprazole 40 MG VIAL IVP SCH ×2 (08:36→20:04)
[2020-11-11] MEDS ORDERED: Vancomycin HCl 750 MG in Sodium Chloride 0.9% 250 ML 250 ML IVPB SCH (09:00)
[2020-11-11 12:39] LABS: Phosphorus 2.8 mg/dL (2.3-4.7); Potassium 4.2 mmol/L (3.5-5.1)
[2020-11-11 14:42] VITALS: BP 113/70
[2020-11-11] MEDS: Phytonadione 10 MG/ML AMP SC SCH (15:05)
[2020-11-11] MEDS: Vancomycin HCl 750 MG in Sodium Chloride 0.9% 250 ML 250 ML IVPB SCH (16:20)
[2020-11-11 19:10] LABS: Hemoglobin 7.1 g/dL (14.0-18.0); Platelet Count 18 thou/uL (130-400)
[2020-11-11] MEDS: Haloperidol Lactate 5 MG/ML VIAL SLOW IVP SCH (20:04)
[2020-11-11] MEDS: Lorazepam 2 MG/ML VIAL SLOW IVP PRN (21:46)
[2020-11-12] MEDS: Cefepime 2 GM in Sodium Chloride 0.9% 100 ML IVPB SCH ×2 (00:15→13:36)
[2020-11-12] MEDS: Haloperidol Lactate 5 MG/ML VIAL SLOW IVP SCH ×6 (00:16→22:47)
[2020-11-12 00:51] LABS: Hemoglobin 6.9 g/dL (14.0-18.0); Platelet Count 31 thou/uL (130-400)
[2020-11-12] MEDS ORDERED: Fentanyl CADD 100 ML ONE ×2 (02:24→18:51)
[2020-11-12] MEDS: Lorazepam 2 MG/ML VIAL SLOW IVP PRN ×5 (03:08→13:39)
[2020-11-12] MEDS: Fentanyl CADD 100 ML IV SCH ×2 (04:08→18:54)
[2020-11-12] MEDS: Vancomycin HCl 750 MG in Sodium Chloride 0.9% 250 ML 250 ML IVPB SCH (04:09)
[2020-11-12 04:20] LABS: Hemoglobin 7.1 g/dL (14.0-18.0); Mean Corpuscular HGB CONC 33.9 g/dL (32.0-36.0); Mean Platelet Volume 9.7 fL (7.4-10.4); Platelet Count 27 thou/uL (130-400); RBC Distribution Width 17.5 % (11.5-14.5); Red Blood Cell (RBC) Count 1.97 mill/uL (4.70-6.10)
[2020-11-12 04:39] LABS: ALT (SGPT) 454 U/L (8-55); AST (SGOT) 1853 U/L (5-34); Albumin 2.8 g/dL (3.4-4.8); Alkaline Phosphatase 274 U/L (40-110); Anion Gap 12 mmol/L (10-20); BUN (Urea Nitrogen) 7 mg/dL (8.4-25.7); Bilirubin, Total 6.1 mg/dL (0.2-1.2); CK (CPK) 729 U/L (30-200); Calc. Creatinine Clearance 109 mL/min (70-130); Calcium 8.2 mg/dL (7.8-10.44); Carbon Dioxide 24 mmol/L (23-31); Chloride 111 mmol/L (98-107); Globulin 2.6 g/dL (2.4-3.5); Potassium 3.2 mmol/L (3.5-5.1); Protein, Total 5.4 g/dL (5.8-8.1); Sodium 144 mmol/L (136-145)
[2020-11-12 04:44] LABS: Glucose 58 mg/dL (80-115)
[2020-11-12 04:50] LABS: Band 60 % (5-11); Eosinophils 4 % (0-10); Lymphocytes 4 % (21-51); MDiff Complete? YES; Macrocytosis SLIGHT = 6-15 cells (100X) (0-5/hpf); Metamyelocyte 1 % (0-0); Monocytes 2 % (0-10); Neutrophil 29 % (42-75); Nucleated RBC 2 % (0); Platelet Morphology Comment Appears Decreased
[2020-11-12] MEDS ORDERED: Dextrose 50% Abboject 50 ML SYRINGE ONE (05:14)
[2020-11-12] MEDS: Dextrose 5 %-0.45 % NaCl 1,000 ML IV SCH ×2 (05:37→15:50)
[2020-11-12] MEDS ORDERED: Potassium Chloride 40 MEQ in Sodium Chloride 0.9% 250 ML 250 ML IVPB SCH (07:00)
[2020-11-12 07:43] VITALS: BMI 23.9
[2020-11-12] MEDS ORDERED: methylPREDNISolone Sod Succ 40 MG VIAL IVP SCH (09:04)
[2020-11-12] MEDS ORDERED: Sodium Chloride 0.9% 1,000 ML IV SCH ×2 (09:15)
[2020-11-12] MEDS ORDERED: Albumin 25% 25 GM/100 ML BOT IVPB SCH (09:15)
[2020-11-12 09:27] LABS: Hemoglobin 6.9 g/dL (14.0-18.0); Platelet Count 27 thou/uL (130-400)
[2020-11-12] MEDS ORDERED: Bacteriostatic Water 30 ML VIAL FS PRN (09:30)
[2020-11-12 09:49] LABS: Troponin I 0.024 ng/mL (< 0.028)
[2020-11-12] MEDS: levETIRAcetam in NS 500 MG in Premix Bag 1 BAG IVPB SCH ×2 (10:00→20:29)
[2020-11-12 10:15] LABS: Actual Bicarbonate (HCO3a) 20.2 mEq/L (22-28); CO2 Tension 43.3 mmHg (35.0-45.0); Calcium, Ionized (arterial) 1.08 mmol/L (1.12-1.30); Carboxyhemoglobin (COHb) 1.2 gm% (0.0-3.0); Hemoglobin (Hb) 6.8 g/dL (14.0-18.0); Potassium - ABG Lab 3.19 mmol/L (3.70-5.30); pH, Arterial 7.29 (7.35-7.45)
[2020-11-12 10:16] LABS: O2 Tension (PaO2), arterial 51.5 mmHg (> 80.0)
[2020-11-12 10:17] LABS: ALV-art Gradient 393.475 mmHg (0-20); Puncture Site RBA
[2020-11-12] MEDS: Albumin 25% 25 GM/100 ML BOT IVPB SCH ×3 (10:23→20:29)
[2020-11-12] MEDS: Folic Acid 1 MG TAB PO SCH (12:13)
[2020-11-12] MEDS: Multivitamin W/ Minerals 1 TAB PO SCH (12:13)
[2020-11-12] MEDS: Phytonadione 10 MG/ML AMP SC SCH (13:34)
[2020-11-12] MEDS: Pantoprazole 40 MG VIAL IVP SCH ×2 (13:35→20:30)
[2020-11-12] MEDS: Magnesium Oxide 400 MG TAB PO SCH (13:36)
[2020-11-12] MEDS: methylPREDNISolone Sod Succ 40 MG VIAL IVP SCH ×3 (13:39→22:00)
[2020-11-12] MEDS: Norepinephrine 8 MG/0.9% NS 250 ML IVPB PRN ×2 (15:23→21:10)
[2020-11-12 18:02] LABS: Potassium 3.6 mmol/L (3.5-5.1)
[2020-11-12 18:27] LABS: Hemoglobin 10.6 g/dL (14.0-18.0); Mean Corpuscular HGB CONC 33.5 g/dL (32.0-36.0); Mean Corpuscular Hemoglobin 32.9 pg (27.0-31.0); Mean Corpuscular Volume 98.1 fL (78.0-98.0); Mean Platelet Volume 9.6 fL (7.4-10.4); Platelet Count 52 thou/uL (130-400); RBC Distribution Width 20.7 % (11.5-14.5); Red Blood Cell (RBC) Count 3.23 mill/uL (4.70-6.10); White Blood Cell (WBC) Count 12.6 thou/uL (4.8-10.8)
[2020-11-12 18:29] LABS: Lactic Acid 4.9 mmol/L (0.5-2.2)
[2020-11-12 18:53] LABS: Anisocytosis SLIGHT = 6-15 cells (100X) (0-5/hpf); Band 33 % (5-11); Burr Cells SLIGHT = 2-5 cells (100X) (0-1/hpf); Eosinophils 1 % (0-10); Lymphocytes 1 % (21-51); MDiff Complete? YES; Metamyelocyte 4 % (0-0); Monocytes 11 % (0-10); Neutrophil 50 % (42-75); Nucleated RBC 8 % (0); Platelet Morphology Comment Appears Decreased; Polychromasia SLIGHT = 2-3 cells (100X) (0-2/hpf); Vacuoles SLIGHT
[2020-11-13] MEDS: Haloperidol Lactate 5 MG/ML VIAL SLOW IVP SCH ×4 (01:32→13:06)
[2020-11-13] MEDS: Cefepime 2 GM in Sodium Chloride 0.9% 100 ML IVPB SCH ×2 (01:44→13:08)
[2020-11-13] MEDS: Dextrose 5 %-0.45 % NaCl 1,000 ML IV SCH ×2 (02:25→13:05)
[2020-11-13] MEDS: Albumin 25% 25 GM/100 ML BOT IVPB SCH ×2 (02:41→08:27)
[2020-11-13] MEDS: Norepinephrine 8 MG/0.9% NS 250 ML IVPB PRN (04:08)
[2020-11-13] MEDS: methylPREDNISolone Sod Succ 40 MG VIAL IVP SCH ×2 (04:08→13:05)
[2020-11-13 04:11] VITALS: TEMP 99.3
[2020-11-13 04:28] LABS: INR-International Normal Ratio 2.3; Prothrombin Time 25.7 sec (12.0-14.7)
[2020-11-13 04:29] LABS: PTT 47.9 sec (22.9-36.1)
[2020-11-13 04:38] LABS: Hemoglobin 10.1 g/dL (14.0-18.0); Mean Corpuscular HGB CONC 33.2 g/dL (32.0-36.0); Mean Corpuscular Volume 99.4 fL (78.0-98.0); Mean Platelet Volume 11.3 fL (7.4-10.4); Platelet Count 23 thou/uL (130-400); RBC Distribution Width 21.4 % (11.5-14.5); Red Blood Cell (RBC) Count 3.07 mill/uL (4.70-6.10); White Blood Cell (WBC) Count 14.7 thou/uL (4.8-10.8)
[2020-11-13 04:48] LABS: ALT (SGPT) 243 U/L (8-55); AST (SGOT) 384 U/L (5-34); Albumin 3.3 g/dL (3.4-4.8); Alkaline Phosphatase 163 U/L (40-110); Anion Gap 15 mmol/L (10-20); BUN (Urea Nitrogen) 11 mg/dL (8.4-25.7); Bilirubin, Total 10.6 mg/dL (0.2-1.2); Calc. Creatinine Clearance 56 mL/min (70-130); Calcium 7.7 mg/dL (7.8-10.44); Carbon Dioxide 17 mmol/L (23-31); Chloride 113 mmol/L (98-107); Globulin 2.2 g/dL (2.4-3.5); Glucose 198 mg/dL (80-115); Potassium 3.7 mmol/L (3.5-5.1); Protein, Total 5.5 g/dL (5.8-8.1); Sodium 141 mmol/L (136-145)
[2020-11-13 05:11] LABS: Band 26 % (5-11); Lymphocytes 5 % (21-51); MDiff Complete? YES; Macrocytosis SLIGHT = 6-15 cells (100X) (0-5/hpf); Metamyelocyte 4 % (0-0); Monocytes 8 % (0-10); Neutrophil 53 % (42-75); Platelet Morphology Comment Appears Decreased; Reactive Lymphocytes 4 % (0-10)
[2020-11-13] MEDS: Folic Acid 1 MG TAB PO SCH (08:27)
[2020-11-13] MEDS: Pantoprazole 40 MG VIAL IVP SCH (08:28)
[2020-11-13] MEDS: Multivitamin W/ Minerals 1 TAB PO SCH (08:28)
[2020-11-13] MEDS: Magnesium Oxide 400 MG TAB PO SCH (08:28)
[2020-11-13] MEDS: Phytonadione 10 MG/ML AMP SC SCH (08:29)
[2020-11-13 08:36] LABS: Lactic Acid 4.4 mmol/L (0.5-2.2)
[2020-11-13] MEDS: levETIRAcetam in NS 500 MG in Premix Bag 1 BAG IVPB SCH (08:42)
[2020-11-13] MEDS ORDERED: Morphine 2 MG/ML VIAL SLOW IVP PRN (15:12)
[2020-11-13] MEDS ORDERED: Scopolamine 1.5 mg/72 hour Patch TOP PRN (15:30)
[2020-11-13] MEDS ORDERED: diphenhydrAMINE 50 MG/ML VIAL IVP PRN (15:30)
[2020-11-13] MEDS ORDERED: Haloperidol Lactate 5 MG/ML VIAL SLOW IVP PRN (15:30)
[2020-11-13] MEDS ORDERED: Acetaminophen 650 MG Suppository PR PRN (15:30)
[2020-11-13] MEDS ORDERED: Ondansetron PF 4 MG/2 ML Vial IVP PRN (15:30)
[2020-11-13] MEDS ORDERED: Morphine 4 MG/ML VIAL SLOW IVP SCH (17:00)
[2020-11-13] MEDS ORDERED: Lorazepam 2 MG/ML VIAL SLOW IVP SCH (17:00)
== END 2020-11-13 16:29 | disposition hospice, inpatient (51) | DRG 870 ==
LOC: ERS 10:58 → CCU 13:32
PROVIDERS: ADMIT Family Medicine; ATTEND Family Medicine
PROC: 30233N1 Transfusion of Nonautologous Red Blood Cells into Peripheral Vein, Percutaneous Approach (ICD-10-PCS; 2020-11-09)
PROC: 02HV33Z Insertion of Infusion Device into Superior Vena Cava, Percutaneous Approach (ICD-10-PCS; 2020-11-09)
PROC: 0BH18EZ Insertion of Endotracheal Airway into Trachea, Via Natural or Artificial Opening Endoscopic (ICD-10-PCS; 2020-11-09)
PROC: 3E033XZ Introduction of Vasopressor into Peripheral Vein, Percutaneous Approach (ICD-10-PCS; 2020-11-09)
PROC: HZ2ZZZZ Detoxification Services for Substance Abuse Treatment (ICD-10-PCS; 2020-11-09)
PROC: 0T9B70Z Drainage of Bladder with Drainage Device, Via Natural or Artificial Opening (ICD-10-PCS; 2020-11-09)
PROC: 5A1955Z Respiratory Ventilation, Greater than 96 Consecutive Hours (ICD-10-PCS; 2020-11-09)
PROC: 30233R1 Transfusion of Nonautologous Platelets into Peripheral Vein, Percutaneous Approach (ICD-10-PCS; principal; 2020-11-11)
DX: A41.9 Sepsis, unspecified organism (principal); R65.21 Severe sepsis with septic shock; G93.41 Metabolic encephalopathy; Z51.5 Encounter for palliative care; Z66 Do not resuscitate; R57.8 Other shock; J96.90 Respiratory failure, unspecified, unspecified whether with hypoxia or hypercapnia; K72.00 Acute and subacute hepatic failure without coma; E72.20 Disorder of urea cycle metabolism, unspecified; E87.2 Acidosis; K92.2 Gastrointestinal hemorrhage, unspecified; D68.9 Coagulation defect, unspecified; K76.6 Portal hypertension; I48.0 Paroxysmal atrial fibrillation; J44.9 Chronic obstructive pulmonary disease, unspecified; F10.10 Alcohol abuse, uncomplicated; G20 Parkinson's disease; L89.152 Pressure ulcer of sacral region, stage 2; G40.909 Epilepsy, unspecified, not intractable, without status epilepticus; G89.4 Chronic pain syndrome; F39 Unspecified mood [affective] disorder; D53.9 Nutritional anemia, unspecified; D69.6 Thrombocytopenia, unspecified; E88.09 Other disorders of plasma-protein metabolism, not elsewhere classified; R00.0 Tachycardia, unspecified; R94.31 Abnormal electrocardiogram [ECG] [EKG]; K76.0 Fatty (change of) liver, not elsewhere classified; E03.9 Hypothyroidism, unspecified; K31.89 Other diseases of stomach and duodenum; F32.9 Major depressive disorder, single episode, unspecified; F41.9 Anxiety disorder, unspecified; Z20.822 Contact with and (suspected) exposure to COVID-19; E87.6 Hypokalemia; E83.39 Other disorders of phosphorus metabolism; Z95.0 Presence of cardiac pacemaker; Z98.890 Other specified postprocedural states; Z87.891 Personal history of nicotine dependence; Z90.49 Acquired absence of other specified parts of digestive tract; Z79.899 Other long term (current) drug therapy
CPT/HCPCS: 0240U; 31500; 36415; 36416; 36430; 36556; 36600; 51702; 70450; 71045; 74177; 76705; 80053; 80156; 80202; 80306; 80307; 81003; 81015; 82105; 82140; 82274; 82533; 82550; 82607; 82746; 82805; 83605; 83690; 83735; 83880; 84100; 84145; 84146; 84443; 84484; 85007; 85025; 85027; 85046; 85060; 85610; 85730; 86850; 86900; 86901; 87040; 87086; 93005; 93010; 94002; 94003; 96365; 96366; 96367; 96375; C9113; J0692; J1630; J1953; J2001; J2060; J2270; J2354; J2704; J2920; J3010; J3370; J3411; J3430; J3475; J3480; J3490; J7050; P9016; P9035; P9047; Q9967

== ENCOUNTER 2020-11-13 17:03 | Inpatient (IN) | payer OTHER ==
[2020-11-13] MEDS ORDERED: Bisacodyl 10 MG SUPP PR PRN (18:09)
[2020-11-13] MEDS ORDERED: Morphine 4 MG/ML VIAL SLOW IVP PRN (18:14)
[2020-11-13] MEDS ORDERED: diphenhydrAMINE 50 MG/ML VIAL IVP PRN (18:15)
[2020-11-13] MEDS ORDERED: Scopolamine 1.5 mg/72 hour Patch TOP PRN (18:15)
[2020-11-13] MEDS ORDERED: Lorazepam 2 MG/ML VIAL SLOW IVP PRN (18:15)
[2020-11-13] MEDS ORDERED: Acetaminophen 650 MG Suppository PR PRN (18:15)
[2020-11-13] MEDS ORDERED: Lorazepam 2 MG/ML VIAL SLOW IVP SCH (18:15)
[2020-11-13] MEDS ORDERED: Ondansetron PF 4 MG/2 ML Vial IVP PRN (18:15)
[2020-11-13] MEDS ORDERED: Morphine 4 MG/ML VIAL SLOW IVP SCH (18:15)
[2020-11-13] MEDS ORDERED: Haloperidol Lactate 5 MG/ML VIAL SLOW IVP PRN (18:15)
== END 2020-11-13 19:09 | disposition expired | DRG 951 ==
LOC: CCU 17:03
PROVIDERS: ADMIT Family Medicine; ATTEND Family Medicine
DX: Z51.5 Encounter for palliative care (principal)